=== PATIENT | female | born 1935 | race Caucasian/White ===

== ENCOUNTER 2018-03-13 11:57 | Emergency (ER) | payer MEDICARE, BC ==
[2018-03-13] MEDS ORDERED: Sodium Chloride 0.9% 10 ML Syringe FLUSH PRN ×2 (12:47→20:20)
[2018-03-13] MEDS ORDERED: Ondansetron 4 MG/2 ML SDV IVPUSH ONE (12:48)
[2018-03-13] MEDS ORDERED: fentaNYL 100 MCG/2 ML SDV IVPUSH ONE (12:48)
--- NOTE | 2018-03-13 12:54 | EDM.PDOC ---
ED HPI GENERAL MEDICAL PROBLEM - General Chief Complaint: Gastrointestinal Problem Stated Complaint: NAUSEA, VOMITINT AND DIARRHEA Time Seen by Provider: 03/13/18 12:40 Source of Information: Reports: Patient, Family, Old Records, RN Notes Reviewed History Limitations: Reports: No Limitations - History of Present Illness INITIAL COMMENTS - FREE TEXT/NARRATIVE: 82-year-old female presents to the emergency department today with complaint of nausea vomiting and diarrhea she was recently hospitalized about 2 weeks ago for similar episode today she states this particular event has been going on for about 4 days. She also has abdominal pain, no shortness of breath no chest pain" - Related Data Allergies Allergy/AdvReac Type Severity Reaction Status Date / Time adhesive tape Allergy Other Verified 03/13/18 12:19 codeine Allergy Hives Verified 03/13/18 12:19 doxepin [Doxepin] Allergy Hives Verified 03/13/18 12:19 etodolac [From Lodine] Allergy Cannot Verified 03/13/18 12:19 Remember fosinopril sodium Allergy Hives Verified 03/13/18 12:19 [From Monopril] heparin Allergy Cannot Verified 03/13/18 12:19 Remember methylprednisolone Allergy Cannot Verified 03/13/18 12:19 [From Medrol] Remember pantoprazole [From Protonix] Allergy Cannot Verified 03/13/18 12:19 Remember Penicillins Allergy Hives Verified 03/13/18 12:19 procaine HCl [From Novocain] Allergy Hives Verified 03/13/18 12:19 Sulfa (Sulfonamide Allergy Hives Verified 03/13/18 12:19 Antibiotics) amitriptyline HCl AdvReac Hallucinati Verified 03/13/18 12:19 [From Elavil] ons amlodipine besylate AdvReac Blisters Verified 03/13/18 12:19 [From Norvasc] nortriptyline AdvReac Hallucinati Verified 03/13/18 12:19 ons quinapril HCl [From Accupril] AdvReac Hallucinati Verified 03/13/18 12:19 ons Home Meds: Home Meds Simvastatin 20 mg PO BEDTIME 03/15/13 [History] Tiotropium [Spiriva Handihaler] 18 mcg INH DAILY 03/15/13 [History] traMADol [Ultram] 50 mg PO Q12H PRN 03/15/13 [History] Albuterol Sulfate [Proair Hfa] 2 puff INH Q4HR PRN 06/17/13 [History] Metoprolol Succinate 50 mg PO DAILY 06/17/13 [History] Omeprazole 20 mg PO BIDAC 06/17/13 [History] Aspirin [Adult Low Dose Aspirin EC] 81 mg PO DAILY 08/17/13 [History] Nystatin/Triamcinolone Crm [Mycolog Crm] 15 gm TOP BID 08/17/13 [History] Terazosin [Hytrin] 5 mg PO BEDTIME 11/01/14 [History] Theophylline [Theophylline Anhydrous] 300 mg PO Q12HR 11/01/14 [History] Hydroxychloroquine [Plaquenil] 200 mg PO DAILY 11/29/15 [History] Losartan [Cozaar] 50 mg PO DAILY 11/29/15 [History] Nitroglycerin 0.4 mg SL ASDIRECTED PRN 11/29/15 [History] Albuterol/Ipratropium [DuoNeb 3.0-0.5 MG/3 ML] 3 ml INH Q4H PRN 11/19/17 [ History] Levothyroxine [Synthroid] 75 mcg PO ACBREAKFAST 11/19/17 [History] Potassium Chloride 2 cap PO BID 11/19/17 [History] Warfarin [Coumadin] 1.25 tab PO DAILY@1300 11/19/17 [History] Bumetanide [Bumex] 2 mg PO DAILY 11/24/17 [History] Albuterol Sulfate [Proair Hfa] 2 puff INH QID 03/04/18 [History] Amiodarone [Cordarone] 200 mg PO DAILY 03/04/18 [History] Magnesium Oxide [Magnesium] 400 mg PO TID 03/04/18 [History] Metoprolol Succinate 25 mg PO DAILY 03/04/18 [History] Mometasone/Formoterol [Dulera 200 MCG/5 MCG] 2 puff INH BID 03/04/18 [History] Montelukast [Singulair] 10 mg PO DAILY 03/04/18 [History] Metoclopramide HCl [Reglan] 5 mg PO QIDACANDBED #0 03/08/18 [Rx] cephALEXin [Keflex] 500 mg PO BID #4 cap 03/08/18 [Rx] Benzonatate 1 caplet PO TID PRN 03/13/18 [History] Past Medical History HEENT History: Reports: Cataract, Impaired Vision Cardiovascular History: Reports: Afib, High Cholesterol, Hypertension, Pacemaker Other Cardiovascular History: defibriblilation Respiratory History: Reports: COPD, Sleep Apnea, SOB, Other (See Below) Other Respiratory History: Cpap and home O2 2L prn Gastrointestinal History: Reports: Bowel Obstruction, GERD, Hiatal Hernia Genitourinary History: Reports: Urinary Incontinence COORDINATOR OF PLACEMENT History: Reports: , Other (See Below) Other COORDINATOR OF PLACEMENT History: hemorrhaging Musculoskeletal History: Reports: RA Other Musculoskeletal History: Torn rotator cuff Neurological History: Reports: CVA, Migraines Endocrine/Metabolic History: Reports: Hypothyroidism, Obesity/BMI 30+ Hematologic History: Reports: Anemia, Blood Transfusion(s) - Infectious Disease History Infectious Disease History: Reports: Chicken Pox, Measles, Mumps, Pertussis ( Whooping Cough), Shingles - Past Surgical History HEENT Surgical History: Reports: Cataract Surgery Cardiovascular Surgical History: Reports: Coronary Artery Stent GI Surgical History: Reports: Appendectomy, Cholecystectomy, Hernia Repair/Other , Small Bowel Other GI Surgeries/Procedures: removal of mesh 2015 Female Surgical History: Reports: D&C, Hysterectomy, Salpingo-Oophorectomy Neurological Surgical History: Reports: Other (See Below) Musculoskeletal Surgical History: Reports: Knee Replacement, Other (See Below) Other Musculoskeletal Surgeries/Procedures:: L knee replaced Social & Family History - Family History HEENT: Reports: Cataract Cardiac: Reports: Hypertension Respiratory: Reports: Asthma, COPD Other Respiratory Family Hisory: emphysema GI: Reports: Cholelithiasis, Colon Polyps OBGYN: Reports: Musculoskeletal: Reports: Arthritis Psychiatric: Reports: Anxiety, Depression Endocrine/Metabolic: Reports: Hypothyroidism Oncologic: Reports: Skin - Tobacco Use Smoking Status *Q: Never Smoker - Caffeine Use Caffeine Use: Reports: Tea ED ROS GENERAL - Review of Systems Review Of Systems: See Below Constitutional: Reports: Weakness, Fatigue. Denies: Fever, Chills HEENT: Reports: No Symptoms Respiratory: Reports: No Symptoms Cardiovascular: Reports: No Symptoms GI/Abdominal: Reports: Abdominal Pain, Diarrhea, Nausea, Vomiting : Reports: No Symptoms Musculoskeletal: Reports: No Symptoms Skin: Reports: No Symptoms Neurological: Reports: No Symptoms ED EXAM, GI/ABD - Physical Exam Exam: See Below Text/Narrative:: General: Elderly female, ill-appearing, alert and oriented x3 HEENT: head is atraumatic normocephalic, eyes pupils equal round reactive to light, sclera clear no conjunctivitis appreciated. Ears tympanic membranes clear and mendenhall landmarks and light reflex are present bilaterally canals are clear. Nose no septal deviation, nares are clear, no blood present. Mouth mucosa is moist and pink no erythema or exudate noted in soft palate, tongue is midline uvula is midline, dentition is intact. Neck: Supple no thyromegaly no tracheal deviation. Nodes: Cervical nodes subclavicular nodes nontender no palpable lymphadenopathy noted. Lungs: clear to auscultation bilaterally with symmetrical respirations, no adventitious noise appreciated. CV: Regular rate and rhythm S1 and S2 appreciated no murmurs rubs or gallops noted. Abdomen: Soft, generalized tenderness to palpation, no palpable masses or organomegaly appreciated, no distention no guarding bowel sounds are present. Neuro: Cranial nerves II through XII grossly intact Skin: Warm and dry, intact Extremities: +2 pitting edema in lower extremities bilaterally Course - Vital Signs Last Recorded V/S: Last Vital Signs Temp 99.1 F 03/13/18 12:35 Pulse 102 H 03/13/18 12:35 Resp 14 03/13/18 12:35 BP 109/57 L 03/13/18 12:35 Pulse Ox 95 03/13/18 12:35 - Orders/Labs/Meds Orders: Active Orders 24 hr Category Date Time Status EKG Documentation Completion [RC] ASDIRECTED Care 03/13/18 13:58 Active Peripheral IV Care [RC] . DIRECTED Care 03/13/18 12:47 Active Abdomen Pelvis w Cont [CT] Urgent Exams 03/13/18 12:47 Taken CLOSTRIDIUM DIFFICILE BY PCR [RM] Stat Lab 03/13/18 12:51 Ordered CULTURE STOOL + SHIGATOX [RM] Stat Lab 03/13/18 12:51 Ordered UA W/MICROSCOPIC [URIN] Urgent Lab 03/13/18 12:47 Ordered WBC, STOOL [OP] Stat Lab 03/13/18 12:51 Ordered Lactated Ringers [Ringers, Lactated] 1,000 ml Med 03/13/18 13:00 Active IV ASDIRECTED Sodium Chloride 0.9% [Saline Flush] Med 03/13/18 12:47 Active 10 ml FLUSH ASDIRECTED PRN Peripheral IV Insertion Adult [OM.PC] Urgent Oth 03/13/18 12:47 Ordered EKG 12 Lead [EK] Stat Ther 03/13/18 13:57 Ordered Medication Orders Lactated Ringer's (Ringers, Lactated) 1,000 mls @ 999 mls/hr IV ASDIRECTED PAUL Last Admin: 03/13/18 13:25 Dose: 999 mls/hr Sodium Chloride (Saline Flush) 10 ml FLUSH ASDIRECTED PRN PRN Reason: Keep Vein Open Last Admin: 03/13/18 14:48 Dose: 10 ml Labs: Laboratory Tests 03/13/18 03/13/18 03/13/18 Range/Units 13:22 13:22 13:22 WBC 8.8 (4.5-11.0) K/uL RBC 4.40 (3.30-5.50) M/uL Hgb 11.8 L (12.0-15.0) g/dL Hct 36.8 (36.0-48.0) % MCV 84 (80-98) fL MCH 27 (27-31) pg MCHC 32 (32-36) % Plt Count 295 (150-400) K/uL Neut % (Auto) 67 H (36-66) % Lymph % (Auto) 13 L (24-44) % [place] % (Auto) 14 H (2-6) % Eos % (Auto) 6 H (2-4) % Baso % (Auto) 1 (0-1) % PT 16.2 H (9.5-12.0) sec INR 1.51 H (0.80-1.20) Sodium 140 (140-148) mmol/L Potassium 3.2 L (3.6-5.2) mmol/L Chloride 102 (100-108) mmol/L Carbon Dioxide 25 (21-32) mmol/L Anion Gap 16.2 H (5.0-14.0) mmol/L BUN 7 (7-18) mg/dL Creatinine 1.1 H (0.6-1.0) mg/dL Est Cr Clr Drug Dosing 28.32 mL/min Estimated GFR (MDRD) 48 L (>60) Glucose 89 (74-106) mg/dL Lactic Acid (0.4-2.0) mmol/L Calcium 9.0 (8.5-10.1) mg/dL Total Bilirubin 0.4 (0.2-1.0) mg/dL AST 11 L (15-37) U/L ALT 11 L (12-78) U/L Alkaline Phosphatase 96 (46-116) U/L Troponin I 0.018 (0.000-0.056) ng/mL Total Protein 5.7 L (6.4-8.2) g/dL Albumin 2.3 L (3.4-5.0) g/dL Globulin 3.4 (2.3-3.5) g/dL Albumin/Globulin Ratio 0.7 L (1.2-2.2) Lipase 44 L (73-393) U/L Theophylline (10-20.0) ug/mL 03/13/18 03/13/18 Range/Units 13:22 13:28 WBC (4.5-11.0) K/uL RBC (3.30-5.50) M/uL Hgb (12.0-15.0) g/dL Hct (36.0-48.0) % MCV (80-98) fL MCH (27-31) pg MCHC (32-36) % Plt Count (150-400) K/uL Neut % (Auto) (36-66) % Lymph % (Auto) (24-44) % [place] % (Auto) (2-6) % Eos % (Auto) (2-4) % Baso % (Auto) (0-1) % PT (9.5-12.0) sec INR (0.80-1.20) Sodium (140-148) mmol/L Potassium (3.6-5.2) mmol/L Chloride (100-108) mmol/L Carbon Dioxide (21-32) mmol/L Anion Gap (5.0-14.0) mmol/L BUN (7-18) mg/dL Creatinine (0.6-1.0) mg/dL Est Cr Clr Drug Dosing mL/min Estimated GFR (MDRD) (>60) Glucose (74-106) mg/dL Lactic Acid 2.9 H (0.4-2.0) mmol/L Calcium (8.5-10.1) mg/dL Total Bilirubin (0.2-1.0) mg/dL AST (15-37) U/L ALT (12-78) U/L Alkaline Phosphatase (46-116) U/L Troponin I (0.000-0.056) ng/mL Total Protein (6.4-8.2) g/dL Albumin (3.4-5.0) g/dL Globulin (2.3-3.5) g/dL Albumin/Globulin Ratio (1.2-2.2) Lipase (73-393) U/L Theophylline 28.8 H* (10-20.0) ug/mL Meds: Medications Generic Name Dose Route Start Last Admin Trade Name Freq PRN Reason Stop Dose Admin Lactated Ringer's 1,000 mls @ 999 mls/hr 03/13/18 13:00 03/13/18 13:25 Ringers, Lactated IV 999 mls/hr ASDIRECTED PAUL Administration Sodium Chloride 10 ml 03/13/18 12:47 03/13/18 14:48 Saline Flush FLUSH 10 ml ASDIRECTED PRN Administration Keep Vein Open Discontinued Medications Generic Name Dose Route Start Last Admin Trade Name Freq PRN Reason Stop Dose Admin Benzonatate 200 mg 03/13/18 14:49 03/13/18 14:59 Tessalon Perles PO 03/13/18 14:50 200 mg ONETIME ONE Administration Fentanyl 50 mcg 03/13/18 12:48 03/13/18 13:25 Sublimaze IVPUSH 03/13/18 12:49 50 mcg ONETIME ONE Administration Sodium Chloride 80 mls @ 3.5 mls/sec 03/13/18 12:55 03/13/18 14:48 Normal Saline IV 03/13/18 12:56 3.5 mls/sec ONETIME ONE Administration Iopamidol 129 ml 03/13/18 13:00 03/13/18 14:48 Isovue-300 (61%) IV 03/13/18 13:01 129 ml . DIRECTED PAUL Administration Ondansetron HCl 4 mg 03/13/18 12:48 03/13/18 13:25 Zofran IVPUSH 03/13/18 12:49 4 mg ONETIME ONE Administration Sodium Chloride 10 ml 03/13/18 12:55 03/13/18 13:24 Saline Flush FLUSH 03/13/18 12:56 10 ml ONETIME ONE Administration Departure - Departure Time of Disposition: 15:40 Disposition: Refer to Observation Condition: Fair Clinical Impression: Theophylline toxicity - Discharge Information Referrals: Sundeep Gleason MD [Primary Care Provider] - Forms: ED Department Discharge - My Orders Last 24 Hours: My Active Orders 03/13/18 12:47 Peripheral IV Care [RC] . DIRECTED Abdomen Pelvis w Cont [CT] Urgent UA W/MICROSCOPIC [URIN] Urgent Sodium Chloride 0.9% [Saline Flush] 10 ml FLUSH ASDIRECTED PRN Peripheral IV Insertion Adult [OM.PC] Urgent 03/13/18 12:51 CLOSTRIDIUM DIFFICILE BY PCR [RM] Stat CULTURE STOOL + SHIGATOX [RM] Stat WBC, STOOL [OP] Stat 03/13/18 13:00 Lactated Ringers [Ringers, Lactated] 1,000 ml IV ASDIRECTED 03/13/18 13:57 EKG 12 Lead [EK] Stat 03/13/18 13:58 EKG Documentation Completion [RC] ASDIRECTED - Assessment/Plan Last 24 Hours: My Active Orders 03/13/18 12:47 Peripheral IV Care [RC] . DIRECTED Abdomen Pelvis w Cont [CT] Urgent UA W/MICROSCOPIC [URIN] Urgent Sodium Chloride 0.9% [Saline Flush] 10 ml FLUSH ASDIRECTED PRN Peripheral IV Insertion Adult [OM.PC] Urgent 03/13/18 12:51 CLOSTRIDIUM DIFFICILE BY PCR [RM] Stat CULTURE STOOL + SHIGATOX [RM] Stat WBC, STOOL [OP] Stat 03/13/18 13:00 Lactated Ringers [Ringers, Lactated] 1,000 ml IV ASDIRECTED 03/13/18 13:57 EKG 12 Lead [EK] Stat 03/13/18 13:58 EKG Documentation Completion [RC] ASDIRECTED Plan: Assessment Acuity = acute Site and laterality = theophylline toxicity complicated in a patient with known history of atrial fibrillation on chronic anticoagulation as well as chronic obstructive pulmonary disease as well as on amiodarone Etiology = unclear etiology Manifestations = nausea vomiting abdominal pain Location of injury = Home Lab values = CBC unremarkable INR subtherapeutic at 1.51 potassium low at 3.2 consistent hypokalemia, albumin low at 2.3 consistent hypoalbuminemia theophylline elevated 28.8 consistent with supratherapeutic range, CT scan of the abdomen shows no acute process Plan Called discussed case with hospitalist mason helper he agreed, and evaluate the patient emergency department for admission This note was dictated using [employer] voice recognition software please call with any questions on syntax or grammar.
[2018-03-13] MEDS ORDERED: Sodium Chloride 0.9% 10 ML Syringe FLUSH ONE (12:55)
[2018-03-13] MEDS ORDERED: Sodium Chloride 0.9% 80 ML IV ONE (12:55)
[2018-03-13] MEDS ORDERED: Lactated Ringers 1,000 ML IV SCH (13:00)
[2018-03-13] MEDS ORDERED: Iopamidol 612 MG/ML 150 ML Bottle IV SCH (13:00)
[2018-03-13] MEDS ORDERED: Benzonatate 100 MG Cap PO ONE (14:49)
--- NOTE | 2018-03-13 17:43 | PCM.HP ---
H&P History of Present Illness - General Date of Service: 03/13/18 Admit Problem/Dx: Admission Diagnosis/Problem Admission Diagnosis/Problem Nausea and vomiting Source of Information: Patient, Old Records, Provider, RN Notes Reviewed History Limitations: Reports: No Limitations - History of Present Illness Initial Comments - Free Text/Narative: Ms. Molina is an 82-year-old woman who is admitted to observation status through the emergency department for management of nausea, vomiting and tremor secondary to Aminophyllin toxicity. She was hostile is at this facility within the past few weeks with epigastric abdominal pain, nausea, and vomiting. CT scan of the abdomen was obtained and found to be unremarkable. EGD was obtained and showed evidence of gastritis, biopsies were obtained and found to be positive for Helicobacter pylori. She is completed a course of management for the Helicobacter. She felt well initially after discharge now has noted recurrent symptoms in addition to tremulousness which has become significantly worse. On evaluation in the emergency department white blood cell count is normal as well as other labs. Significant abnormality identified was elevation in her Aminophyllin level. - Related Data Allergies/Adverse Reactions: Allergies Allergy/AdvReac Type Severity Reaction Status Date / Time adhesive tape Allergy Other Verified 03/13/18 12:19 codeine Allergy Hives Verified 03/13/18 12:19 doxepin [Doxepin] Allergy Hives Verified 03/13/18 12:19 etodolac [From Lodine] Allergy Cannot Verified 03/13/18 12:19 Remember fosinopril sodium Allergy Hives Verified 03/13/18 12:19 [From Monopril] heparin Allergy Cannot Verified 03/13/18 12:19 Remember methylprednisolone Allergy Cannot Verified 03/13/18 12:19 [From Medrol] Remember pantoprazole [From Protonix] Allergy Cannot Verified 03/13/18 12:19 Remember Penicillins Allergy Hives Verified 03/13/18 12:19 procaine HCl [From Novocain] Allergy Hives Verified 03/13/18 12:19 Sulfa (Sulfonamide Allergy Hives Verified 03/13/18 12:19 Antibiotics) amitriptyline HCl AdvReac Hallucinati Verified 03/13/18 12:19 [From Elavil] ons amlodipine besylate AdvReac Blisters Verified 03/13/18 12:19 [From Norvasc] nortriptyline AdvReac Hallucinati Verified 03/13/18 12:19 ons quinapril HCl [From Accupril] AdvReac Hallucinati Verified 03/13/18 12:19 ons Home Medications: Home Meds Simvastatin 20 mg PO BEDTIME 03/15/13 [History] Tiotropium [Spiriva Handihaler] 18 mcg INH DAILY 03/15/13 [History] traMADol [Ultram] 50 mg PO Q12H PRN 03/15/13 [History] Albuterol Sulfate [Proair Hfa] 2 puff INH Q4HR PRN 06/17/13 [History] Metoprolol Succinate 50 mg PO DAILY 06/17/13 [History] Omeprazole 20 mg PO BIDAC 06/17/13 [History] Aspirin [Adult Low Dose Aspirin EC] 81 mg PO DAILY 08/17/13 [History] Nystatin/Triamcinolone Crm [Mycolog Crm] 15 gm TOP BID 08/17/13 [History] Terazosin [Hytrin] 5 mg PO BEDTIME 11/01/14 [History] Theophylline [Theophylline Anhydrous] 300 mg PO Q12HR 11/01/14 [History] Hydroxychloroquine [Plaquenil] 200 mg PO DAILY 11/29/15 [History] Losartan [Cozaar] 50 mg PO DAILY 11/29/15 [History] Nitroglycerin 0.4 mg SL ASDIRECTED PRN 11/29/15 [History] Albuterol/Ipratropium [DuoNeb 3.0-0.5 MG/3 ML] 3 ml INH Q4H PRN 11/19/17 [ History] Levothyroxine [Synthroid] 75 mcg PO ACBREAKFAST 11/19/17 [History] Potassium Chloride 2 cap PO BID 11/19/17 [History] Warfarin [Coumadin] 1.25 tab PO DAILY@1300 11/19/17 [History] Bumetanide [Bumex] 2 mg PO DAILY 11/24/17 [History] Albuterol Sulfate [Proair Hfa] 2 puff INH QID 03/04/18 [History] Amiodarone [Cordarone] 200 mg PO DAILY 03/04/18 [History] Magnesium Oxide [Magnesium] 400 mg PO TID 03/04/18 [History] Metoprolol Succinate 25 mg PO DAILY 03/04/18 [History] Mometasone/Formoterol [Dulera 200 MCG/5 MCG] 2 puff INH BID 03/04/18 [History] Montelukast [Singulair] 10 mg PO DAILY 03/04/18 [History] Metoclopramide HCl [Reglan] 5 mg PO QIDACANDBED #0 03/08/18 [Rx] cephALEXin [Keflex] 500 mg PO BID #4 cap 03/08/18 [Rx] Benzonatate 1 caplet PO TID PRN 03/13/18 [History] Past Medical History HEENT History: Reports: Cataract, Impaired Vision Cardiovascular History: Reports: Afib, High Cholesterol, Hypertension, Pacemaker Other Cardiovascular History: defibriblilation Respiratory History: Reports: COPD, Sleep Apnea, SOB, Other (See Below) Other Respiratory History: Cpap and home O2 2L prn Gastrointestinal History: Reports: Bowel Obstruction, GERD, Hiatal Hernia Genitourinary History: Reports: Urinary Incontinence 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: , Other (See Below) Other OB/BYN History: hemorrhaging Musculoskeletal History: Reports: RA Other Musculoskeletal History: Torn rotator cuff Neurological History: Reports: CVA, Migraines Endocrine/Metabolic History: Reports: Hypothyroidism, Obesity/BMI 30+ Hematologic History: Reports: Anemia, Blood Transfusion(s) - Infectious Disease History Infectious Disease History: Reports: Chicken Pox, Measles, Mumps, Pertussis ( Whooping Cough), Shingles - Past Surgical History HEENT Surgical History: Reports: Cataract Surgery Cardiovascular Surgical History: Reports: Coronary Artery Stent GI Surgical History: Reports: Appendectomy, Cholecystectomy, Hernia Repair/Other , Small Bowel Other GI Surgeries/Procedures: removal of mesh 2016 Female Surgical History: Reports: D&C, Hysterectomy, Salpingo-Oophorectomy Neurological Surgical History: Reports: Other (See Below) Musculoskeletal Surgical History: Reports: Knee Replacement, Other (See Below) Other Musculoskeletal Surgeries/Procedures:: L knee replaced Social & Family History - Family History HEENT: Reports: Cataract Cardiac: Reports: Hypertension Respiratory: Reports: Asthma, COPD Other Respiratory Family Hisory: emphysema GI: Reports: Cholelithiasis, Colon Polyps OBGYN: Reports: Musculoskeletal: Reports: Arthritis Psychiatric: Reports: Anxiety, Depression Endocrine/Metabolic: Reports: Hypothyroidism Oncologic: Reports: Skin - Tobacco Use Smoking Status *Q: Never Smoker - Caffeine Use Caffeine Use: Reports: Tea H&P Review of Systems - Review of Systems: Review Of Systems: See Below General: Reports: Weakness. Denies: Fever, Chills HEENT: Reports: No Symptoms Pulmonary: Reports: No Symptoms Cardiovascular: Reports: No Symptoms Gastrointestinal: Reports: Abdominal Pain, Diarrhea, Decreased Appetite, Nausea , Vomiting. Denies: Black Stool, Bloody Stool, Constipation, Difficulty Swallowing, Distension Genitourinary: Reports: No Symptoms Musculoskeletal: Reports: No Symptoms Skin: Reports: No Symptoms Psychiatric: Reports: No Symptoms Neurological: Reports: Tremors Hematologic/Lymphatic: Reports: No Symptoms Immunologic: Reports: No Symptoms Exam - Exam Exam: See Below - Vital Signs Vital Signs: Last Vital Signs Temp 99.1 F 03/13/18 12:35 Pulse 102 H 03/13/18 12:35 Resp 14 03/13/18 12:35 BP 109/57 L 03/13/18 12:35 Pulse Ox 95 03/13/18 12:35 Weight: 190 lb - Exam Quality Assessment: DVT Prophylaxis General: Alert, Oriented, Cooperative, Moderate Distress HEENT: Conjunctiva Clear, Hearing Intact, Normal Nasal Septum, Posterior Pharynx Clear, Pupils Equal. No: Mucosa Moist & Hospers Neck: Supple, Trachea Midline, +2 Carotid Pulse wo Bruit Lungs: Clear to Auscultation, Normal Respiratory Effort Cardiovascular: Regular Rate, Regular Rhythm, Normal S1, Normal S2 GI/Abdominal Exam: Normal Bowel Sounds, Soft, No Organomegaly, Tender. No: Distended, Guarding, Rigid, Rebound Back Exam: Normal Inspection, Full Range of Motion Extremities: Non-Tender, No Pedal Edema Skin: Warm, Dry, Intact Neurological: Cranial Nerves Intact, Strength Equal Bilateral, Normal Speech, Normal Tone, Sensation Intact. No: Focal Deficit Neuro Extensive - Mental Status: Alert, Oriented x3, Normal Mood/Affect, Normal Cognition, Memory Intact - Patient Data Lab Results Last 24 hrs: Laboratory Results - last 24 hr 03/13/18 03/13/18 03/13/18 Range/Units 13:22 13:22 13:22 WBC 8.8 (4.5-11.0) K/uL RBC 4.40 (3.30-5.50) M/uL Hgb 11.8 L (12.0-15.0) g/dL Hct 36.8 (36.0-48.0) % MCV 84 (80-98) fL MCH 27 (27-31) pg MCHC 32 (32-36) % Plt Count 295 (150-400) K/uL Neut % (Auto) 67 H (36-66) % Lymph % (Auto) 13 L (24-44) % Brewster % (Auto) 14 H (2-6) % Eos % (Auto) 6 H (2-4) % Baso % (Auto) 1 (0-1) % PT 16.2 H (9.5-12.0) sec INR 1.51 H (0.80-1.20) Sodium 140 (140-148) mmol/L Potassium 3.2 L (3.6-5.2) mmol/L Chloride 102 (100-108) mmol/L Carbon Dioxide 25 (21-32) mmol/L Anion Gap 16.2 H (5.0-14.0) mmol/L BUN 7 (7-18) mg/dL Creatinine 1.1 H (0.6-1.0) mg/dL Est Cr Clr Drug Dosing 28.32 mL/min Estimated GFR (MDRD) 48 L (>60) Glucose 89 (74-106) mg/dL Lactic Acid (0.4-2.0) mmol/L Calcium 9.0 (8.5-10.1) mg/dL Total Bilirubin 0.4 (0.2-1.0) mg/dL AST 11 L (15-37) U/L ALT 11 L (12-78) U/L Alkaline Phosphatase 96 (46-116) U/L Troponin I 0.018 (0.000-0.056) ng/mL Total Protein 5.7 L (6.4-8.2) g/dL Albumin 2.3 L (3.4-5.0) g/dL Globulin 3.4 (2.3-3.5) g/dL Albumin/Globulin Ratio 0.7 L (1.2-2.2) Lipase 44 L (73-393) U/L Theophylline (10-20.0) ug/mL 03/13/18 12 Range/Units 13:22 13:28 WBC (4.5-11.0) K/uL RBC (3.30-5.50) M/uL Hgb (12.0-15.0) g/dL Hct (36.0-48.0) % MCV (80-98) fL MCH (27-31) pg MCHC (32-36) % Plt Count (150-400) K/uL Neut % (Auto) (36-66) % Lymph % (Auto) (24-44) % Brewster % (Auto) (2-6) % Eos % (Auto) (2-4) % Baso % (Auto) (0-1) % PT (9.5-12.0) sec INR (0.80-1.20) Sodium (140-148) mmol/L Potassium (3.6-5.2) mmol/L Chloride (100-108) mmol/L Carbon Dioxide (21-32) mmol/L Anion Gap (5.0-14.0) mmol/L BUN (7-18) mg/dL Creatinine (0.6-1.0) mg/dL Est Cr Clr Drug Dosing mL/min Estimated GFR (MDRD) (>60) Glucose (74-106) mg/dL Lactic Acid 2.9 H (0.4-2.0) mmol/L Calcium (8.5-10.1) mg/dL Total Bilirubin (0.2-1.0) mg/dL AST (15-37) U/L ALT (12-78) U/L Alkaline Phosphatase (46-116) U/L Troponin I (0.000-0.056) ng/mL Total Protein (6.4-8.2) g/dL Albumin (3.4-5.0) g/dL Globulin (2.3-3.5) g/dL Albumin/Globulin Ratio (1.2-2.2) Lipase (73-393) U/L Theophylline 28.8 H* (10-20.0) ug/mL Result Diagrams: 03/13/18 13:22 03/13/18 13:22 *Q Meaningful Use (ADM) - VTE *Q VTE Pharmacological Contraindications *Q: High INR Value - VTE Risk Assess *Q Each Risk Factor Represents 1 Point: Obesity ( BMI > 25 kg/m2), Abnormal Pulmonary Function (COPD) Total Score 1 Point Risk Factors: 2 Each Risk Factor Represents 2 Points: None Total Score 2 Point Risk Factors: 0 Each Risk Factor Represents 3 Points: Age 75 Years or Greater Total Score 3 Point Risk Factors: 3 Each Risk Factor Represents 5 Points: None Total Score 5 Point Risk Factors: 0 Venous Thromboembolism Risk Factor Score *Q: 5 Problem List Initiated/Reviewed/Updated: Yes Orders Last 24hrs: Active Orders 24 hr Category Date Time Status Patient Status Manage Transfer [TRANSFER] Routine ADT 03/13/18 17:22 Ordered EKG Documentation Completion [RC] ASDIRECTED Care 03/13/18 13:58 Active Peripheral IV Care [RC] . DIRECTED Care 03/13/18 12:47 Active Abdomen Pelvis w Cont [CT] Urgent Exams 03/13/18 12:47 Taken CLOSTRIDIUM DIFFICILE BY PCR [RM] Stat Lab 03/13/18 12:51 Ordered CULTURE STOOL + SHIGATOX [RM] Stat Lab 03/13/18 12:51 Ordered UA W/MICROSCOPIC [URIN] Urgent Lab 03/13/18 12:47 Ordered WBC, STOOL [OP] Stat Lab 03/13/18 12:51 Ordered Lactated Ringers [Ringers, Lactated] 1,000 ml Med 03/13/18 13:00 Active IV ASDIRECTED Sodium Chloride 0.9% [Saline Flush] Med 03/13/18 12:47 Active 10 ml FLUSH ASDIRECTED PRN Peripheral IV Insertion Adult [OM.PC] Urgent Oth 03/13/18 12:47 Ordered Resuscitation Status Routine Resus Stat 03/13/18 17:30 Ordered EKG 12 Lead [EK] Stat Ther 03/13/18 13:57 Ordered Medication Orders Lactated Ringer's (Ringers, Lactated) 1,000 mls @ 999 mls/hr IV ASDIRECTED PAUL Last Admin: 03/13/18 13:25 Dose: 999 mls/hr Sodium Chloride (Saline Flush) 10 ml FLUSH ASDIRECTED PRN PRN Reason: Keep Vein Open Last Admin: 03/13/18 14:48 Dose: 10 ml Assessment/Plan Comment:: ASSESSMENT AND PLAN 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 May have been caused by concurrent use of amiodarone. Level obtained in the emergency department and found to be significantly elevated at 28. -Cardiac monitoring -Hold Aminophyllin -Recheck Aminophyllin level in a.m. HISTORY OF GASTRITIS-found during recent hospitalization and associated with Helicobacter pylori. She is now completed a course of therapy for the H. pylori. She does have persistent symptoms of epigastric pain. She is intolerant of Protonix. -Increase omeprazole to 40 mg twice daily -Pepcid 20 mg IV every 12 hours -If symptoms of nausea vomiting do not improve after Aminophyllin level drops, consider repeat endoscopy ATRIAL FIBRILLATION-rate well controlled, currently on anticoagulation with warfarin -INR in a.m. -Continue outpatient management COPD-well compensated at this time with no evidence of exacerbation -Hold Aminophyllin -Continue other medications MAINTENANCE ISSUES -DVT prophylaxis; current therapy with warfarin should provide adequate DVT prophylaxis -GI prophylaxis; omeprazole and Pepcid as noted above -[place] catheter; not indicated -Nutrition; regular diet -Nicotine dependence; not required CODE STATUS-FULL CODE ADMISSION STATUS-this patient will be admitted to observation status, expect no more than a one night hospital stay for evaluation and management of problems as outlined above. DISPOSITION-anticipate discharge to home after the hospital stay. PRIMARY CARE PROVIDER-Dr. Gleason
[2018-03-13] MEDS ORDERED: Albuterol 0.083% 2.5 MG/3 ML Neb Soln NEB PRN (20:20)
[2018-03-13] MEDS ORDERED: Acetaminophen 325 MG Tab PO PRN (20:20)
[2018-03-13] MEDS ORDERED: Potassium Chloride Riders 40 MEQ in Premix Bag 1 BAG IV ONE (20:20)
[2018-03-13] MEDS ORDERED: Albuterol/Ipratropium 3.0-0.5 MG/3 ML Neb Soln NEB PRN (20:20)
[2018-03-13] MEDS ORDERED: LORazepam 2 MG/ML SDV IV PRN (20:20)
[2018-03-13] MEDS ORDERED: Albuterol 8 GM Inhaler INH PRN (20:20)
[2018-03-13] MEDS ORDERED: Potassium Chloride 20 MEQ Tab.ER PO ONE (20:20)
[2018-03-13] MEDS: Potassium Chloride 20 MEQ Tab.ER PO SCH (21:34)
[2018-03-13] MEDS: Lactated Ringers 1,000 ML IV SCH (21:35)
[2018-03-13] MEDS: traMADol 50 MG Tab PO PRN (21:36)
[2018-03-13] MEDS: Benzonatate 100 MG Cap PO PRN (21:37)
[2018-03-13] MEDS: Simvastatin 20 MG Tab PO SCH (21:42)
[2018-03-13] MEDS: Metoclopramide 10 MG Tab PO SCH (21:42)
[2018-03-13] MEDS: Formoterol/Mometasone 200-5 MCG 8.8 GM Inhaler IH SCH (21:45)
[2018-03-13] MEDS: Famotidine 20 MG/2 ML SDV IVPUSH SCH (21:49)
[2018-03-13] MEDS: Terazosin 5 MG Cap PO SCH (21:51)
[2018-03-13] MEDS ORDERED: Vancomycin 1 GM SDV ONE (22:32)
[2018-03-13] MEDS ORDERED: Water For Injection, Sterile 10 ML SDV ONE (22:35)
[2018-03-13] MEDS: Vancomycin 250 MG/5 ML ML Oral Solution PO SCH (23:11)
[2018-03-14] MEDS: traMADol 50 MG Tab PO PRN ×2 (04:14→08:24)
[2018-03-14] MEDS: Benzonatate 100 MG Cap PO PRN ×2 (04:14→17:31)
[2018-03-14] MEDS: Lactated Ringers 1,000 ML IV SCH (05:26)
[2018-03-14] MEDS: Vancomycin 250 MG/5 ML ML Oral Solution PO SCH ×4 (06:06→21:37)
[2018-03-14] MEDS ORDERED: Non-Formulary Medication 1 Each (Omeprazole [Omeprazole] 40 MG) PO SCH (07:30)
[2018-03-14] MEDS: Levothyroxine 25 MCG Tab PO SCH (08:00)
[2018-03-14] MEDS: Metoclopramide 10 MG Tab PO SCH ×4 (08:00→20:17)
[2018-03-14] MEDS: Losartan 50 MG Tab PO SCH (08:01)
[2018-03-14] MEDS: Bumetanide 1 MG Tab PO SCH (08:01)
[2018-03-14] MEDS: Aspirin 81 MG Tab.EC PO SCH (08:02)
[2018-03-14] MEDS: Potassium Chloride 20 MEQ Tab.ER PO SCH ×2 (08:02→20:15)
[2018-03-14] MEDS: Hydroxychloroquine 200 MG Tab PO SCH (08:02)
[2018-03-14] MEDS: Montelukast 10 MG Tab PO SCH (08:02)
[2018-03-14] MEDS: Metoprolol Succinate 50 MG Tab.ER PO SCH (08:09)
[2018-03-14] MEDS: Amiodarone 200 MG Tab PO SCH (08:10)
[2018-03-14] MEDS: Formoterol/Mometasone 200-5 MCG 8.8 GM Inhaler IH SCH ×2 (09:12→21:37)
[2018-03-14] MEDS: Tiotropium Inhaler 18 MCG Inhalation Powder Cap Kit of 5 INH SCH (09:13)
[2018-03-14] MEDS ORDERED: Warfarin 2.5 MG Tab PO SCH (13:00)
--- NOTE | 2018-03-14 14:41 | PCM.PN ---
- General Info Date of Service: 03/14/18 Subjective Update: Ms. Molina is improved since admission, tremors have essentially resolved and nausea vomiting are significantly improved. Vital signs have been stable and she has remained afebrile. Stool for C. difficile did come back positive and she 's been started on oral vancomycin. Continues to experience diarrhea but already seems to be improving. Functional Status: Reports: Urinating - Review of Systems General: Reports: Weakness. Denies: Fever, Chills Pulmonary: Reports: No Symptoms Cardiovascular: Reports: No Symptoms Gastrointestinal: Reports: Abdominal Pain, Decreased Appetite, Diarrhea. Denies : Difficulty Swallowing, Nausea, Vomiting - Patient Data Vitals - Most Recent: Last Vital Signs Temp 98.5 F 03/14/18 13:26 Pulse 98 03/14/18 13:26 Resp 16 03/14/18 13:26 BP 112/61 03/14/18 13:26 Pulse Ox 95 03/14/18 13:26 Weight - Most Recent: 205 lb I&O - Last 24 Hours: Intake & Output 03/13/18 03/14/18 03/14/18 22:59 06:59 14:59 Intake Total 100 1347 Output Total 300 350 300 Balance -200 997 -300 Lab Results Last 24 Hours: Laboratory Results - last 24 hr 03/13/18 03/14/18 03/14/18 Range/Units 20:50 06:08 06:08 PT 18.3 H (9.5-12.0) sec INR 1.72 H (0.80-1.20) Sodium 138 L (140-148) mmol/L Potassium 4.5 (3.6-5.2) mmol/L Chloride 105 (100-108) mmol/L Carbon Dioxide 26 (21-32) mmol/L Anion Gap 11.5 (5.0-14.0) mmol/L BUN 6 L (7-18) mg/dL Creatinine 0.9 (0.6-1.0) mg/dL Est Cr Clr Drug Dosing 34.62 mL/min Estimated GFR (MDRD) 60 (>60) Glucose 77 (74-106) mg/dL Calcium 8.5 (8.5-10.1) mg/dL Urine Color [place] Urine Appearance Cloudy Urine pH 6.0 (4.5-8.0) Ur Specific [place] 1.005 L (1.008-1.030) Urine Protein Trace (NEGATIVE) mg/dL Urine Glucose (UA) Normal (NEGATIVE) mg/dL Urine Ketones Negative (NEGATIVE) mg/dL Urine Occult Blood Large (NEGATIVE) Urine Nitrite Negative (NEGATIVE) Urine Bilirubin Negative (NEGATIVE) Urine Urobilinogen Normal (NORMAL) mg/dL Ur Leukocyte Esterase Moderate (NEGATIVE) Urine RBC Packed H (0-5) Urine WBC 5-10 H (0-5) Ur Epithelial Cells Moderate Amorphous Sediment Few Urine Bacteria Rare Urine Mucus Few Theophylline 17.2 (10-20.0) ug/mL Darshan Results Last 24 Hours: Microbiology 03/13/18 20:50 Shiga Toxin I - Final Stool / Feces NEGATIVE FOR SHIGA TOXIN 1 Shiga Toxin II - Final NEGATIVE FOR SHIGA TOXIN 2 Clostridium difficile (PCR) - Final Positive C. Diff Toxin 03/13/18 20:50 Stool for WBCs - Final Stool / Feces Med Orders - Current: Current Medications Albuterol (Ventolin Hfa) 0 gm INH Q4H PRN PRN Reason: Shortness of Breath Albuterol (Proventil Neb Soln) 2.5 mg NEB Q4H PRN PRN Reason: Shortness Of Breath/wheezing Albuterol/Ipratropium (Duoneb 3.0-0.5 Mg/3 Ml) 3 ml NEB QID PRN PRN Reason: Shortness Of Breath/wheezing Last Admin: 03/14/18 09:13 Dose: 3 ml Amiodarone HCl (Cordarone) 200 mg PO DAILY [facility] Last Admin: 03/14/18 08:10 Dose: 200 mg Aspirin (Halfprin) 81 mg PO DAILY [facility] Last Admin: 03/14/18 08:02 Dose: 81 mg Benzonatate (Tessalon Perles) 100 mg PO Q6H PRN PRN Reason: Cough Last Admin: 03/14/18 04:14 Dose: 100 mg Bumetanide (Bumex) 1 mg PO DAILY [facility] Last Admin: 03/14/18 08:01 Dose: 1 mg Famotidine (Pepcid) 20 mg IVPUSH BEDTIME [facility] Last Admin: 03/13/18 21:49 Dose: 20 mg Hydroxychloroquine Sulfate (Plaquenil) 200 mg PO DAILY [facility] Last Admin: 03/14/18 08:02 Dose: 200 mg Lactobacillus Rhamnosus (Culturelle) 1 cap PO BID [facility] Levothyroxine Sodium (Levothyroxine) 75 mcg PO ACBREAKFAST [facility] Last Admin: 03/14/18 08:00 Dose: 75 mcg Lorazepam (Ativan) 0.5 mg IV Q4H PRN PRN Reason: Nausea/Vomiting Losartan Potassium (Cozaar) 50 mg PO DAILY [facility] Last Admin: 03/14/18 08:01 Dose: 50 mg Metoclopramide HCl (Reglan) 5 mg PO QIDACANDBED [facility] Last Admin: 03/14/18 11:16 Dose: 5 mg Metoprolol Succinate (Toprol Xl) 50 mg PO DAILY [facility] Last Admin: 03/14/18 08:09 Dose: 50 mg Mometasone Furoate/Formoterol Fumar (Dulera 200-5 Mcg) 2 puff IH BID [facility] Last Admin: 03/14/18 09:12 Dose: 2 puff Montelukast Sodium (Singulair) 10 mg PO DAILY [facility] Last Admin: 03/14/18 08:02 Dose: 10 mg Non-Formulary Medication (Omeprazole [Omeprazole]) 40 mg PO BIDAC [facility] Potassium Chloride (Klor-Con M20) 20 meq PO BID [facility] Last Admin: 03/14/18 08:02 Dose: 20 meq Simvastatin (Zocor) 20 mg PO BEDTIME [facility] Last Admin: 03/13/18 21:42 Dose: 20 mg Sodium Chloride (Saline Flush) 10 ml FLUSH ASDIRECTED PRN PRN Reason: Keep Vein Open Terazosin HCl (Hytrin) 5 mg PO BEDTIME [facility] Last Admin: 03/13/18 21:51 Dose: Not Given Tiotropium [place] (Spiriva Handihaler) 18 mcg INH DAILY [facility] Last Admin: 03/14/18 09:13 Dose: 18 mcg Tramadol HCl (Ultram) 50 mg PO Q4H PRN PRN Reason: Pain (severe 7-10) Last Admin: 03/14/18 08:24 Dose: 50 mg Vancomycin HCl (Vancocin 250 Mg/5 Ml Soln) 125 mg PO QID [facility] Last Admin: 03/14/18 11:16 Dose: 125 mg Warfarin Sodium (Coumadin) 1.25 mg PO DAILY@1300 [facility] Last Admin: 03/14/18 13:13 Dose: 1.25 mg Discontinued Medications Acetaminophen (Tylenol) 650 mg PO Q4H PRN PRN Reason: Pain (Mild 1-3)/fever Benzonatate (Tessalon Perles) 200 mg PO ONETIME ONE Stop: 03/13/18 14:50 Last Admin: 03/13/18 14:59 Dose: 200 mg Fentanyl (Sublimaze) 50 mcg IVPUSH ONETIME ONE Stop: 03/13/18 12:49 Last Admin: 03/13/18 13:25 Dose: 50 mcg Lactated Ringer's (Ringers, Lactated) 1,000 mls @ 999 mls/hr IV ASDIRECTED [facility] Last Admin: 03/13/18 13:25 Dose: 999 mls/hr Sodium Chloride (Normal Saline) 80 mls @ 3.5 mls/sec IV ONETIME ONE Stop: 03/13/18 12:56 Last Admin: 03/13/18 14:48 Dose: 3.5 mls/sec Lactated Ringer's (Ringers, Lactated) 1,000 mls @ 125 mls/hr IV ASDIRECTED [facility] Last Admin: 03/14/18 05:26 Dose: 125 mls/hr Potassium Chloride 40 meq/ (Premix) 100 mls @ 25 mls/hr IV ONETIME ONE Stop: 03/14/18 00:19 Last Admin: 03/13/18 23:11 Dose: 25 mls/hr Iopamidol (Isovue-300 (61%)) 129 ml IV . DIRECTED [facility] Stop: 03/13/18 13:01 Last Admin: 03/13/18 14:48 Dose: 129 ml Ondansetron HCl (Zofran) 4 mg IVPUSH ONETIME ONE Stop: 03/13/18 12:49 Last Admin: 03/13/18 13:25 Dose: 4 mg Potassium Chloride (Klor-Con M20) 40 meq PO ONETIME ONE Stop: 03/13/18 20:21 Last Admin: 03/13/18 21:35 Dose: 40 meq Sodium Chloride (Saline Flush) 10 ml FLUSH ASDIRECTED PRN PRN Reason: Keep Vein Open Last Admin: 03/13/18 14:48 Dose: 10 ml Sodium Chloride (Saline Flush) 10 ml FLUSH ONETIME ONE Stop: 03/13/18 12:56 Last Admin: 03/13/18 13:24 Dose: 10 ml Sterile Water (Sterile Water For Injection) Confirm Administered Dose 20 ml .ROUTE .STK-MED ONE Stop: 03/13/18 22:36 Last Admin: 03/13/18 23:12 Dose: Not Given Vancomycin HCl (Vancomycin) Confirm Administered Dose 1 gm .ROUTE .STK-MED ONE Stop: 03/13/18 22:33 Last Admin: 03/13/18 23:12 Dose: Not Given - Exam Quality Assessment: DVT Prophylaxis General: Alert, Oriented, Cooperative, Mild Distress Lungs: Clear to Auscultation, Normal Respiratory Effort Cardiovascular: Regular Rate, Regular Rhythm, No Murmurs GI/Abdominal Exam: Soft, No Organomegaly, Tender. No: Distended, Guarding, Rigid, Rebound Extremities: Non-Tender, No Pedal Edema - Problem List Review Problem List Initiated/Reviewed/Updated: Yes - My Orders Last 24 Hours: My Active Orders 03/13/18 17:30 Resuscitation Status Routine 03/13/18 20:20 Patient Status [ADT] Routine Ambulate [RC] QID Intake and Output [RC] QSHIFT Notify Provider Vital Signs [RC] ASDIRECTED Oxygen Therapy [RC] .PRN Peripheral IV Care [RC] Q12H RT Aerosol Therapy [RC] ASDIRECTED Up With Assistance [RC] ASDIRECTED Up to Chair [RC] QID VTE/DVT Education [RC] Per Unit Routine Vital Signs [RC] Q4H Albuterol [Proventil Neb Soln] 2.5 mg NEB Q4H PRN Albuterol [Ventolin HFA] 0 gm INH Q4H PRN Albuterol/Ipratropium [DuoNeb 3.0-0.5 MG/3 ML] 3 ml NEB QID PRN LORazepam [Ativan] 0.5 mg IV Q4H PRN Sodium Chloride 0.9% [Saline Flush] 10 ml FLUSH ASDIRECTED PRN traMADol [Ultram] 50 mg PO Q4H PRN Peripheral IV Insertion Adult [OM.PC] Routine VTE Pharmacological Contraindications [AST] Per Unit Routine 03/13/18 20:35 Benzonatate [Tessalon Perles] 100 mg PO Q6H PRN 03/13/18 20:45 Metoclopramide [Reglan] 5 mg PO QIDACANDBED 03/13/18 21:00 Famotidine [Pepcid] 20 mg IVPUSH BEDTIME Mometasone/Formoterol [Dulera 200-5 MCG] 2 puff IH BID Potassium Chloride [Klor-Con M20] 20 meq PO BID Simvastatin [Zocor] 20 mg PO BEDTIME Terazosin [Hytrin] 5 mg PO BEDTIME 03/13/18 22:30 Vancomycin [Vancocin 250 MG/5 ML Soln] 125 mg PO QID 03/13/18 Dinner 2 Gram Sodium Diet [DIET] 03/14/18 07:30 Levothyroxine 75 mcg PO ACBREAKFAST Omeprazole [Omeprazole] 40 mg PO BIDAC 03/14/18 09:00 Amiodarone [Cordarone] 200 mg PO DAILY Aspirin [Halfprin] 81 mg PO DAILY Bumetanide [Bumex] 1 mg PO DAILY Hydroxychloroquine [Plaquenil] 200 mg PO DAILY Losartan [Cozaar] 50 mg PO DAILY Metoprolol Succinate [Toprol XL] 50 mg PO DAILY Montelukast [Singulair] 10 mg PO DAILY Tiotropium [Spiriva HandiHaler] 18 mcg INH DAILY 03/14/18 13:00 Warfarin [Coumadin] 1.25 mg PO DAILY@1300 03/14/18 14:34 Convert IV to Saline Lock [OM.PC] Routine 03/14/18 14:45 Lactobacillus Rhamnosus GG [Culturelle] 1 cap PO BID 03/15/18 05:00 BASIC METABOLIC PANEL,BMP [CHEM] Timed INR,PT,PROTHROMBIN TIME [COAG] Timed 03/15/18 05:11 THEOPHYLLINE [CHEM] AM - Plan Plan:: ASSESSMENT AND PLAN 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 Symptoms improved from admission, theophylline level down to 18. -Hold Aminophyllin -Recheck Aminophyllin level in a.m. HISTORY OF GASTRITIS-found during recent hospitalization and associated with Helicobacter pylori. She is now completed a course of therapy for the H. pylori. She does have persistent symptoms of epigastric pain. She is intolerant of Protonix. -Increase omeprazole to 40 mg twice daily -Pepcid 20 mg IV every 12 hours -If symptoms of nausea vomiting do not improve after Aminophyllin level drops, consider repeat endoscopy CLOSTRIDIUM DIFFICILE COLITIS-stool study found to be positive -Oral vancomycin 125 mg every 6 hours -Probiotic therapy daily ATRIAL FIBRILLATION-rate well controlled, currently on anticoagulation with warfarin -INR in a.m. -Continue outpatient management COPD-well compensated at this time with no evidence of exacerbation -Hold Aminophyllin -Continue other medications MAINTENANCE ISSUES -DVT prophylaxis; current therapy with warfarin should provide adequate DVT prophylaxis -GI prophylaxis; omeprazole and Pepcid as noted above -[place] catheter; not indicated -Nutrition; regular diet -Nicotine dependence; not required CODE STATUS-FULL CODE ADMISSION STATUS-this patient will be admitted to observation status, expect no more than a one night hospital stay for evaluation and management of problems as outlined above. DISPOSITION-anticipate discharge to home after the hospital stay. PRIMARY CARE PROVIDER-Dr. Gleason
[2018-03-14] MEDS: Lactobacillus Rhamnosus GG (Probiotic) Cap PO SCH ×2 (17:25→20:16)
[2018-03-14] MEDS: Famotidine 20 MG/2 ML SDV IVPUSH SCH (20:15)
[2018-03-14] MEDS: Simvastatin 20 MG Tab PO SCH (20:15)
[2018-03-14] MEDS: Terazosin 5 MG Cap PO SCH (20:16)
[2018-03-14] MEDS ORDERED: LORazepam 0.5 MG Tab PO PRN (21:23)
[2018-03-15] MEDS: Vancomycin 250 MG/5 ML ML Oral Solution PO SCH ×2 (06:04→09:00)
[2018-03-15] MEDS: Metoclopramide 10 MG Tab PO SCH (07:51)
[2018-03-15] MEDS: Levothyroxine 25 MCG Tab PO SCH (07:51)
[2018-03-15] MEDS: Bumetanide 1 MG Tab PO SCH (08:52)
[2018-03-15] MEDS: Aspirin 81 MG Tab.EC PO SCH (08:53)
[2018-03-15] MEDS: Lactobacillus Rhamnosus GG (Probiotic) Cap PO SCH (08:53)
[2018-03-15] MEDS: Losartan 50 MG Tab PO SCH (08:53)
[2018-03-15] MEDS: Formoterol/Mometasone 200-5 MCG 8.8 GM Inhaler IH SCH (08:53)
[2018-03-15] MEDS: Amiodarone 200 MG Tab PO SCH (08:53)
[2018-03-15] MEDS: Hydroxychloroquine 200 MG Tab PO SCH (08:54)
[2018-03-15] MEDS: Potassium Chloride 20 MEQ Tab.ER PO SCH (08:54)
[2018-03-15] MEDS: Montelukast 10 MG Tab PO SCH (08:55)
[2018-03-15] MEDS: Tiotropium Inhaler 18 MCG Inhalation Powder Cap Kit of 5 INH SCH (08:55)
[2018-03-15] MEDS: Metoprolol Succinate 50 MG Tab.ER PO SCH (08:56)
[2018-03-15 08:57] VITALS: BP 135/68
[2018-03-15] MEDS: Benzonatate 100 MG Cap PO PRN (08:57)
--- NOTE | 2018-03-15 10:19 | PCM.DCSUM1 ---
Discharge Summary - Hospital Course Brief History: Ms. Molina is an 82-year-old woman who was admitted to observation status through the emergency department with diarrhea, tremor, nausea and vomiting, and epigastric abdominal pain. - Discharge Data Discharge Date: 03/15/18 Discharge Disposition: Home, W Home Health Agency 06 Condition: Fair - Discharge Diagnosis/Problem(s) (1) Clostridium difficile colitis SNOMED Code(s): 284821837 ICD Code: A04.72 - ENTEROCOLITIS D/T CLOSTRIDIUM DIFFICILE, NOT SPCF RECUR Status: Acute Current Visit: Yes (2) Stage III chronic kidney disease SNOMED Code(s): 351337016 ICD Code: N18.3 - CHRONIC KIDNEY DISEASE, STAGE 3 (MODERATE) Status: Chronic Current Visit: No (3) Acute gastritis without hemorrhage SNOMED Code(s): 40958507 ICD Code: K29.00 - ACUTE GASTRITIS WITHOUT BLEEDING Status: Acute Current Visit: No Qualifiers: Gastritis type: other gastritis Qualified Code(s): K29.00 - Acute gastritis without bleeding (4) Theophylline toxicity SNOMED Code(s): 78476257 ICD Code: R89.2 - ABN LEV DRUG/MEDS/BIOL SUBST IN SPECIMENS FROM OTH ORG/TISS ; T48.6X1A - POISONING BY ANTIASTHMATICS, ACCIDENTAL, INIT Status: Acute Current Visit: Yes - Patient Summary/Data Hospital Course: Ms. Molina is an 82-year-old woman who was admitted to observation status through the emergency department for management of nausea, vomiting and tremor secondary to Aminophyllin toxicity. She was hospitalized at this facility within the past few weeks with epigastric abdominal pain, nausea, and vomiting. CT scan of the abdomen was obtained and found to be unremarkable. EGD was obtained and showed evidence of gastritis, biopsies were obtained and found to be positive for Helicobacter pylori. She had completed a course of management for the Helicobacter. She felt well initially, but after discharge has developed recurrent symptoms in addition to tremulousness which has become significantly worse. On evaluation in the emergency department white blood cell count is normal as well as other labs. Significant abnormality identified was elevation in her theophylline level. On admission she was given IV fluids for hydration and felt to have probable theophylline toxicity causing most of her symptoms. Stool studies were obtained and did return positive for Clostridium difficile colitis. She was started on oral antibiotic therapy with vancomycin 125 mg by mouth every 6 hours. By the morning after admission theophylline level had dropped to normal range and she had noted moderate improvement in her symptoms. By the morning of discharge theophylline level had dropped lower and symptoms of nausea, vomiting, and tremulousness have essentially resolved. Diarrhea improved significantly with oral vancomycin and she will be discharged to home with an additional 10 days of oral vancomycin therapy for management of the Clostridium difficile. She will also be on a probiotic therapy twice daily over the next month. Her epigastric abdominal pain was felt to be secondary to ongoing gastritis. She is been intolerant of Protonix so she was continued on her omeprazole and also started on Pepcid 20 mg twice daily. She will be discharged home on the Pepcid for ongoing management of her gastritis. Activity will be as tolerated and she will be on a soft low residue diet. Theophylline will be discontinued because of side effects associated with toxicity. Follow-up appointment will be scheduled with her primary care provider within one week. - Patient Instructions Diet: GI Soft/Low Residue/Low Fiber Activity: As Tolerated Other/Special Instructions: Please schedule follow-up appointment with Dr. Gleason within one week. - Discharge Plan *PRESCRIPTION DRUG MONITORING PROGRAM REVIEWED*: Not Applicable *COPY OF PRESCRIPTION DRUG MONITORING REPORT IN PATIENT GERARDO: Not Applicable Prescriptions/Med Rec: Famotidine [Pepcid] 20 mg PO BID #60 tablet Lactobacillus Rhamnosus GG [Culturelle] 1 cap PO BID #60 cap Vancomycin [Vancocin 250 MG/5 ML Soln] 125 mg PO QID #100 ml Home Medications: Home Meds Simvastatin 20 mg PO BEDTIME 03/15/13 [History] Tiotropium [Spiriva Handihaler] 18 mcg INH DAILY 03/15/13 [History] traMADol [Ultram] 50 mg PO Q12H PRN 03/15/13 [History] Albuterol Sulfate [Proair Hfa] 2 puff INH Q4HR PRN 06/17/13 [History] Metoprolol Succinate 50 mg PO DAILY 06/17/13 [History] Omeprazole 20 mg PO BIDAC 06/17/13 [History] Aspirin [Adult Low Dose Aspirin EC] 81 mg PO DAILY 08/17/13 [History] Nystatin/Triamcinolone Crm [Mycolog Crm] 15 gm TOP BID 08/17/13 [History] Terazosin [Hytrin] 5 mg PO BEDTIME 11/01/14 [History] Hydroxychloroquine [Plaquenil] 200 mg PO DAILY 11/29/15 [History] Losartan [Cozaar] 50 mg PO DAILY 11/29/15 [History] Nitroglycerin 0.4 mg SL ASDIRECTED PRN 11/29/15 [History] Albuterol/Ipratropium [DuoNeb 3.0-0.5 MG/3 ML] 3 ml INH Q4H PRN 11/19/17 [ History] Levothyroxine [Synthroid] 75 mcg PO ACBREAKFAST 11/19/17 [History] Potassium Chloride 2 cap PO BID 11/19/17 [History] Warfarin [Coumadin] 1.25 tab PO DAILY@1300 11/19/17 [History] Bumetanide [Bumex] 2 mg PO DAILY 11/24/17 [History] Albuterol Sulfate [Proair Hfa] 2 puff INH QID 03/04/18 [History] Amiodarone [Cordarone] 200 mg PO DAILY 03/04/18 [History] Magnesium Oxide [Magnesium] 400 mg PO TID 03/04/18 [History] Metoprolol Succinate 25 mg PO DAILY 03/04/18 [History] Mometasone/Formoterol [Dulera 200 MCG/5 MCG] 2 puff INH BID 03/04/18 [History] Montelukast [Singulair] 10 mg PO DAILY 03/04/18 [History] Metoclopramide HCl [Reglan] 5 mg PO QIDACANDBED #0 03/08/18 [Rx] Benzonatate 1 caplet PO TID PRN 03/13/18 [History] Famotidine [Pepcid] 20 mg PO BID #60 tablet 03/15/18 [Rx] Lactobacillus Rhamnosus GG [Culturelle] 1 cap PO BID #60 cap 03/15/18 [Rx] Vancomycin [Vancocin 250 MG/5 ML Soln] 125 mg PO QID #100 ml 03/15/18 [Rx] Oxygen Therapy Mode: Nasal Cannula Patient Handouts: Clostridium Difficile Infection, [id number] Referrals: Sundeep Gleason MD [Primary Care Provider] - - Discharge Summary/Plan Comment DC Time >30 min.: No - Patient Data Vitals - Most Recent: Last Vital Signs Temp 99.1 F 03/15/18 07:26 Pulse 68 03/15/18 08:56 Resp 20 03/15/18 07:26 BP 135/68 03/15/18 08:56 Pulse Ox 89 L 03/15/18 07:26 Weight - Most Recent: 205 lb I&O - Last 24 hours: Intake & Output 03/14/18 03/15/18 03/15/18 22:59 06:59 14:59 Intake Total 1120 Output Total 400 400 300 Balance 720 -400 -300 Lab Results - Last 24 hrs: Laboratory Results - last 24 hr 03/15/18 03/15/18 03/15/18 Range/Units 05:49 05:49 05:49 PT 19.8 H (9.5-12.0) sec INR 1.86 H (0.80-1.20) Sodium 136 L (140-148) mmol/L Potassium 4.7 (3.6-5.2) mmol/L Chloride 104 (100-108) mmol/L Carbon Dioxide 26 (21-32) mmol/L Anion Gap 10.7 (5.0-14.0) mmol/L BUN 5 L (7-18) mg/dL Creatinine 0.9 (0.6-1.0) mg/dL Est Cr Clr Drug Dosing 34.62 mL/min Estimated GFR (MDRD) 60 (>60) Glucose 80 (74-106) mg/dL Calcium 8.7 (8.5-10.1) mg/dL Theophylline 8.4 L (10-20.0) ug/mL SCAR Results - Last 24 hrs: Microbiology 03/13/18 20:50 Stool Culture - Preliminary Stool / Feces NORMAL ENTERIC BECKIE 1 DAY Shiga Toxin I - Final NEGATIVE FOR SHIGA TOXIN 1 Shiga Toxin II - Final NEGATIVE FOR SHIGA TOXIN 2 Clostridium difficile (PCR) - Final Positive C. Diff Toxin Med Orders - Current: Current Medications Albuterol (Ventolin Hfa) 0 gm INH Q4H PRN PRN Reason: Shortness of Breath Albuterol (Proventil Neb Soln) 2.5 mg NEB Q4H PRN PRN Reason: Shortness Of Breath/wheezing Albuterol/Ipratropium (Duoneb 3.0-0.5 Mg/3 Ml) 3 ml NEB QID PRN PRN Reason: Shortness Of Breath/wheezing Last Admin: 03/14/18 09:13 Dose: 3 ml Amiodarone HCl (Cordarone) 200 mg PO DAILY [facility] Last Admin: 03/15/18 08:53 Dose: 200 mg Aspirin (Halfprin) 81 mg PO DAILY [facility] Last Admin: 03/15/18 08:53 Dose: 81 mg Benzonatate (Tessalon Perles) 100 mg PO Q6H PRN PRN Reason: Cough Last Admin: 03/15/18 08:57 Dose: 100 mg Bumetanide (Bumex) 1 mg PO DAILY [facility] Last Admin: 03/15/18 08:52 Dose: 1 mg Famotidine (Pepcid) 20 mg PO BEDTIME [facility] Hydroxychloroquine Sulfate (Plaquenil) 200 mg PO DAILY [facility] Last Admin: 03/15/18 08:54 Dose: 200 mg Lactobacillus Rhamnosus (Culturelle) 1 cap PO BID [facility] Last Admin: 03/15/18 08:53 Dose: 1 cap Levothyroxine Sodium (Levothyroxine) 75 mcg PO ACBREAKFAST [facility] Last Admin: 03/15/18 07:51 Dose: 75 mcg Lorazepam (Ativan) 0.5 mg PO Q4H PRN PRN Reason: Nausea/Vomiting Losartan Potassium (Cozaar) 50 mg PO DAILY [facility] Last Admin: 03/15/18 08:53 Dose: 50 mg Metoclopramide HCl (Reglan) 5 mg PO QIDACANDBED [facility] Last Admin: 03/15/18 07:51 Dose: 5 mg Metoprolol Succinate (Toprol Xl) 50 mg PO DAILY [facility] Last Admin: 03/15/18 08:56 Dose: 50 mg Mometasone Furoate/Formoterol Fumar (Dulera 200-5 Mcg) 2 puff IH BID [facility] Last Admin: 03/15/18 08:53 Dose: 2 puff Montelukast Sodium (Singulair) 10 mg PO DAILY [facility] Last Admin: 03/15/18 08:55 Dose: 10 mg Potassium Chloride (Klor-Con M20) 20 meq PO BID [facility] Last Admin: 03/15/18 08:54 Dose: 20 meq Simvastatin (Zocor) 20 mg PO BEDTIME [facility] Last Admin: 03/14/18 20:15 Dose: 20 mg Sodium Chloride (Saline Flush) 10 ml FLUSH ASDIRECTED PRN PRN Reason: Keep Vein Open Terazosin HCl (Hytrin) 5 mg PO BEDTIME [facility] Last Admin: 03/14/18 20:16 Dose: Not Given Tiotropium [place] (Spiriva Handihaler) 18 mcg INH DAILY [facility] Last Admin: 03/15/18 08:55 Dose: 18 mcg Tramadol HCl (Ultram) 50 mg PO Q4H PRN PRN Reason: Pain (severe 7-10) Last Admin: 03/14/18 08:24 Dose: 50 mg Vancomycin HCl (Vancocin 250 Mg/5 Ml Soln) 125 mg PO QID [facility] Last Admin: 03/15/18 09:00 Dose: 125 mg Warfarin Sodium (Coumadin) 1.25 mg PO DAILY@1300 [facility] Last Admin: 03/14/18 13:13 Dose: 1.25 mg Discontinued Medications Acetaminophen (Tylenol) 650 mg PO Q4H PRN PRN Reason: Pain (Mild 1-3)/fever Benzonatate (Tessalon Perles) 200 mg PO ONETIME ONE Stop: 03/13/18 14:50 Last Admin: 03/13/18 14:59 Dose: 200 mg Famotidine (Pepcid) 20 mg IVPUSH BEDTIME [facility] Last Admin: 03/14/18 20:15 Dose: 20 mg Fentanyl (Sublimaze) 50 mcg IVPUSH ONETIME ONE Stop: 03/13/18 12:49 Last Admin: 03/13/18 13:25 Dose: 50 mcg Lactated Ringer's (Ringers, Lactated) 1,000 mls @ 999 [facility]ls[facility] Admin: 03/13/18 13:25 Dose: 999 mls/hr Sodium Chloride (Normal Saline) 80 mls @ 3.5 mls/sec IV ONETIME ONE Stop: 03/13/18 12:56 Last Admin: 03/13/18 14:48 Dose: 3.5 mls/sec Lactated Ringer's (Ringers, Lactated) 1,000 mls @ 125 mls/hr IV ASDIRECTED [facility] Last Admin: 03/14/18 05:26 Dose: 125 mls/hr Potassium Chloride 40 meq/ (Premix) 100 mls @ 25 mls/hr IV ONETIME ONE Stop: 03/14/18 00:19 Last Admin: 03/13/18 23:11 Dose: 25 mls/hr Iopamidol (Isovue-300 (61%)) 129 ml IV . DIRECTED [facility] Stop: 03/13/18 13:01 Last Admin: 03/13/18 14:48 Dose: 129 ml Lorazepam (Ativan) 0.5 mg IV Q4H PRN PRN Reason: Nausea/Vomiting Last Admin: 03/14/18 18:11 Dose: 0.5 mg Ondansetron HCl (Zofran) 4 mg IVPUSH ONETIME ONE Stop: 03/13/18 12:49 Last Admin: 03/13/18 13:25 Dose: 4 mg Potassium Chloride (Klor-Con M20) 40 meq PO ONETIME ONE Stop: 03/13/18 20:21 Last Admin: 03/13/18 21:35 Dose: 40 meq Sodium Chloride (Saline Flush) 10 ml FLUSH ASDIRECTED PRN PRN Reason: Keep Vein Open Last Admin: 03/13/18 14:48 Dose: 10 ml Sodium Chloride (Saline Flush) 10 ml FLUSH ONETIME ONE Stop: 03/13/18 12:56 Last Admin: 03/13/18 13:24 Dose: 10 ml Sterile Water (Sterile Water For Injection) Confirm Administered Dose 20 ml .ROUTE .STK-MED ONE Stop: 03/13/18 22:36 Last Admin: 03/13/18 23:12 Dose: Not Given Vancomycin HCl (Vancomycin) Confirm Administered Dose 1 gm .ROUTE .STK-MED ONE Stop: 03/13/18 22:33 Last Admin: 03/13/18 23:12 Dose: Not Given - Exam Quality Assessment: Reports: DVT Prophylaxis General: Reports: Alert, Oriented, Cooperative, No Acute Distress Lungs: Reports: Clear to Auscultation, Normal Respiratory Effort Cardiovascular: Reports: Regular Rate, Regular Rhythm, No Murmurs GI/Abdominal Exam: Soft, No Organomegaly, Tender. No: Distended, Guarding, Rigid, Rebound Extremities: Non-Tender, No Pedal Edema *Q Meaningful Use (DIS) - VTE *Q VTE Pharmacological Contraindications *Q: High INR Value
[2018-03-15] MEDS ORDERED: Famotidine 20 MG Tab PO SCH (21:00)
== END 2018-03-15 11:18 | disposition home health service (06) ==
LOC: JP.ED 11:57 → JP.MS 17:22
PROVIDERS: ADMIT Hospitalist; ATTEND Hospitalist
DX: R11.2 Nausea with vomiting, unspecified (principal); T48.6X5A Adverse effect of antiasthmatics, initial encounter; I48.91 Unspecified atrial fibrillation; J44.9 Chronic obstructive pulmonary disease, unspecified; I10 Essential (primary) hypertension; E78.00 Pure hypercholesterolemia, unspecified; E03.9 Hypothyroidism, unspecified; Z79.82 Long term (current) use of aspirin; Z79.01 Long term (current) use of anticoagulants; Z79.899 Other long term (current) drug therapy; Z88.2 Allergy status to sulfonamides; Z88.8 Allergy status to other drugs, medicaments and biological substances
CPT/HCPCS: 36415; 74177; 80048; 80053; 80198; 81001; 83605; 83690; 84484; 85025; 85610; 87046; 87493; 87899; 89055; 93005; 93010; 94640; 96361; 96374; 96375; 99284; 99285; A9270; J2060; J2405; J3010; J3480; J3490; J7030; J7120; J7620-GY

== ENCOUNTER 2018-10-21 14:29 | Observation (INO) | payer BC, MEDICARE ==
[2018-10-21] MEDS ORDERED: traMADol 50 MG Tab PO PRN (15:41)
[2018-10-21] MEDS ORDERED: Albuterol/Ipratropium 3.0-0.5 MG/3 ML Neb Soln INH PRN (15:41)
[2018-10-21] MEDS ORDERED: Sodium Chloride 0.9% 10 ML Syringe FLUSH PRN (15:44)
[2018-10-21] MEDS ORDERED: Ondansetron 4 MG/2 ML SDV IV PRN (15:44)
[2018-10-21] MEDS ORDERED: Polyethylene Glycol 3350 Powder 17 GM Packet PO PRN (15:44)
[2018-10-21] MEDS ORDERED: Acetaminophen 325 MG Tab PO PRN (15:44)
[2018-10-21] MEDS ORDERED: Sodium Chloride 0.9% 1,000 ML IV SCH (16:00)
--- NOTE | 2018-10-21 16:00 | PCM.HP ---
H&P History of Present Illness - General Date of Service: 10/21/18 Admit Problem/Dx: Admission Diagnosis/Problem Admission Diagnosis/Problem Hypotension Source of Information: Patient, Old Records, Provider, RN Notes Reviewed History Limitations: Reports: No Limitations - History of Present Illness Initial Comments - Free Text/Narative: Ms. Molina is an 83-year-old woman who was admitted as a direct admission from the clinic with weakness and lightheadedness secondary to hypotension, urinary tract infection, and acute kidney injury. She has not felt well over the last 2 days prior to admission with weakness, fatigue, and lightheadedness. She was seen and evaluated in the clinic today, found to have systolic pressures in the 80s. Laboratory studies showed evidence of urinary tract infection on urinalysis and acute kidney injury with a creatinine of 2.3, significantly up from baseline. She has a known history of underlying COPD as well as congestive heart failure and coronary artery disease. She denies significant increase in shortness of breath or any symptoms of chest pain. Generalized Pain Score (Numeric/FACES): 8 - Related Data Allergies/Adverse Reactions: Allergies Allergy/AdvReac Type Severity Reaction Status Date / Time adhesive tape Allergy Other Verified 03/13/18 12:19 codeine Allergy Hives Verified 03/13/18 12:19 doxepin [Doxepin] Allergy Hives Verified 03/13/18 12:19 etodolac [From Lodine] Allergy Cannot Verified 03/13/18 12:19 Remember fosinopril sodium Allergy Hives Verified 03/13/18 12:19 [From Monopril] heparin Allergy Cannot Verified 03/13/18 12:19 Remember methylprednisolone Allergy Cannot Verified 03/13/18 12:19 [From Medrol] Remember pantoprazole [From Protonix] Allergy Cannot Verified 03/13/18 12:19 Remember Penicillins Allergy Hives Verified 03/13/18 12:19 procaine HCl [From Novocain] Allergy Hives Verified 03/13/18 12:19 Sulfa (Sulfonamide Allergy Hives Verified 03/13/18 12:19 Antibiotics) amitriptyline HCl AdvReac Hallucinati Verified 03/13/18 12:19 [From Elavil] ons amlodipine besylate AdvReac Blisters Verified 03/13/18 12:19 [From Norvasc] nortriptyline AdvReac Hallucinati Verified 03/13/18 12:19 ons quinapril HCl [From Accupril] AdvReac Hallucinati Verified 03/13/18 12:19 ons Home Medications: Home Meds Simvastatin 20 mg PO BEDTIME 03/15/13 [History] Tiotropium [Spiriva Handihaler] 18 mcg INH DAILY 03/15/13 [History] traMADol [Ultram] 50 mg PO Q12H PRN 03/15/13 [History] Metoprolol Succinate 50 mg PO DAILY 06/17/13 [History] Omeprazole 20 mg PO BIDAC 06/17/13 [History] Aspirin [Adult Low Dose Aspirin EC] 81 mg PO DAILY 08/17/13 [History] Nystatin/Triamcinolone Crm [Mycolog Crm] 15 gm TOP BID 08/17/13 [History] Terazosin [Hytrin] 5 mg PO BEDTIME 11/01/14 [History] Losartan [Cozaar] 50 mg PO DAILY 11/29/15 [History] Nitroglycerin 0.4 mg SL ASDIRECTED PRN 11/29/15 [History] Albuterol/Ipratropium [DuoNeb 3.0-0.5 MG/3 ML] 3 ml INH Q4H PRN 11/19/17 [ History] Levothyroxine [Synthroid] 100 mcg PO ACBREAKFAST 11/19/17 [History] Potassium Chloride 2 cap PO BID 11/19/17 [History] Warfarin [Coumadin] 1.25 tab PO DAILY@1300 11/19/17 [History] Bumetanide [Bumex] 3 mg PO DAILY 11/24/17 [History] Magnesium Oxide [Magnesium] 400 mg PO DAILY 03/04/18 [History] Mometasone/Formoterol [Dulera 200 MCG/5 MCG] 2 puff INH BID 03/04/18 [History] Montelukast [Singulair] 10 mg PO DAILY 03/04/18 [History] Metoclopramide HCl [Reglan] 5 mg PO QIDACANDBED #0 03/08/18 [Rx] Levothyroxine Sodium [Synthroid] 125 mcg PO 10/21/18 [History] Past Medical History HEENT History: Reports: Cataract, Hard of Hearing, Impaired Vision Cardiovascular History: Reports: Afib, High Cholesterol, Hypertension, Pacemaker Other Cardiovascular History: defibriblilation Respiratory History: Reports: COPD, Sleep Apnea, SOB, Other (See Below) Other Respiratory History: Cpap and home O2 2L prn Gastrointestinal History: Reports: Bowel Obstruction, GERD, Hiatal Hernia Genitourinary History: Reports: Urinary Incontinence, UTI, Recurrent [employer] History: Reports: , Other (See Below) Other OB/BYN History: hemorrhaging Musculoskeletal History: Reports: Back Pain, Chronic, RA Other Musculoskeletal History: Torn rotator cuff Neurological History: Reports: CVA, Migraines Endocrine/Metabolic History: Reports: Hypothyroidism, Obesity/BMI 30+ Hematologic History: Reports: Anemia, Blood Transfusion(s) - Infectious Disease History Infectious Disease History: Reports: C-Difficile, Chicken Pox, Measles, Mumps, Pertussis (Whooping Cough), Shingles - Past Surgical History Head Surgeries/Procedures: Reports: None HEENT Surgical History: Reports: Cataract Surgery Cardiovascular Surgical History: Reports: Coronary Artery Stent GI Surgical History: Reports: Appendectomy, Cholecystectomy, Hernia Repair/Other , Small Bowel Other GI Surgeries/Procedures: removal of mesh 2016 Female Surgical History: Reports: D&C, Hysterectomy, Salpingo-Oophorectomy Neurological Surgical History: Reports: Other (See Below) Musculoskeletal Surgical History: Reports: Knee Replacement, Other (See Below) Other Musculoskeletal Surgeries/Procedures:: L knee replaced Social & Family History - Family History Family Medical History: Noncontributory HEENT: Reports: Cataract Cardiac: Reports: Hypertension Respiratory: Reports: Asthma, COPD Other Respiratory Family Hisory: emphysema GI: Reports: Cholelithiasis, Colon Polyps OBGYN: Reports: Musculoskeletal: Reports: Arthritis Psychiatric: Reports: Anxiety, Depression Endocrine/Metabolic: Reports: Hypothyroidism Oncologic: Reports: Skin - Tobacco Use Smoking Status *Q: Former Smoker Years of Tobacco use: 12 Packs/Tins Daily: 1 Used Tobacco, but Quit: Yes Month/Year Tobacco Last Used: 1970s Second Hand Smoke Exposure: Yes - Caffeine Use Caffeine Use: Reports: Tea - Recreational Drug Use Recreational Drug Use: No H&P Review of Systems - Review of Systems: Review Of Systems: See Below General: Reports: Malaise, Weakness, Fatigue. Denies: Fever, Chills HEENT: Reports: No Symptoms Pulmonary: Reports: Shortness of Breath. Denies: Wheezing, Pleuritic Chest Pain , Cough, Sputum, Hemoptysis Cardiovascular: Reports: Dyspnea on Exertion, Lightheadedness. Denies: Chest Pain, Palpitations, Orthopnea, PND, Edema, Syncope Gastrointestinal: Reports: No Symptoms Genitourinary: Reports: No Symptoms Musculoskeletal: Reports: No Symptoms Skin: Reports: No Symptoms Psychiatric: Reports: No Symptoms Neurological: Reports: No Symptoms Hematologic/Lymphatic: Reports: No Symptoms Immunologic: Reports: No Symptoms Exam - Exam Exam: See Below - Vital Signs Vital Signs: Last Vital Signs Temp 96.5 F 10/21/18 14:44 Pulse 60 10/21/18 14:44 Resp 18 10/21/18 14:44 BP 134/41 L 10/21/18 14:44 Pulse Ox 97 10/21/18 14:44 Weight: 176 lb 8 oz - Exam Quality Assessment: DVT Prophylaxis General: Alert, Oriented, Cooperative, Mild Distress HEENT: Conjunctiva Clear, Hearing Intact, Mucosa Moist & Canon, Normal Nasal Septum, Posterior Pharynx Clear, Pupils Equal Neck: Supple, Trachea Midline, +2 Carotid Pulse wo Bruit Lungs: Clear to Auscultation, Normal Respiratory Effort, Decreased Breath Sounds. No: Rales, Rhonchi, Wheezing Cardiovascular: Regular Rate, Regular Rhythm, Normal S1, Normal S2. No: Systolic Murmur, Diastolic Murmur GI/Abdominal Exam: Soft, Non-Tender, No Organomegaly, No Distention Back Exam: Normal Inspection, Full Range of Motion Extremities: Non-Tender, No Pedal Edema Skin: Warm, Dry, Intact Neurological: Cranial Nerves Intact, Strength Equal Bilateral, Normal Speech, Normal Tone, Sensation Intact. No: Focal Deficit Neuro Extensive - Mental Status: Alert, Oriented x3, Normal Mood/Affect, Normal Cognition, Memory Intact - Patient Data Result Diagrams: 10/21/18 15:55 10/21/18 15:55 *Q Meaningful Use (ADM) - VTE *Q VTE Pharmacological Contraindications *Q: High INR Value - VTE Risk Assess *Q Each Risk Factor Represents 1 Point: Obesity ( BMI > 25 kg/m2), Congestive heart failure (CHF), Abnormal Pulmonary Function (COPD) Total Score 1 Point Risk Factors: 3 Each Risk Factor Represents 2 Points: None Total Score 2 Point Risk Factors: 0 Each Risk Factor Represents 3 Points: Age 75 Years or Greater Total Score 3 Point Risk Factors: 3 Each Risk Factor Represents 5 Points: None Total Score 5 Point Risk Factors: 0 Venous Thromboembolism Risk Factor Score *Q: 6 Problem List Initiated/Reviewed/Updated: Yes Orders Last 24hrs: Active Orders 24 hr Category Date Time Status Patient Status [ADT] Routine ADT 10/21/18 15:44 Active Ambulate [RC] QID Care 10/21/18 15:44 Active Cardiac Monitoring [RC] .As Directed Care 10/21/18 15:45 Active Height and Weight [RC] DAILY Care 10/21/18 15:44 Active Intake and Output [RC] QSHIFT Care 10/21/18 15:44 Active Notify Provider Vital Signs [RC] ASDIRECTED Care 10/21/18 15:44 Active Orthostatic Vital Signs [RC] ASDIRECTED Care 10/21/18 15:51 Active Oxygen Therapy [RC] PRN Care 10/21/18 15:44 Active Peripheral IV Care [RC] . DIRECTED Care 10/21/18 15:48 Active Up With Assistance [RC] ASDIRECTED Care 10/21/18 15:44 Active Up to Chair [RC] QID Care 10/21/18 15:44 Active VTE/DVT Education [RC] Per Unit Routine Care 10/21/18 15:44 Active Vital Signs [RC] Q4H Care 10/21/18 15:44 Active PT Evaluation and Treatment [CONS] Routine Cons 10/21/18 15:44 Active 2 Gram Sodium Diet [DIET] Diet 10/21/18 Lunch Active BASIC METABOLIC PANEL,BMP [CHEM] Timed Lab 10/22/18 05:00 Ordered CBC WITH AUTO DIFF [HEME] Stat Lab 10/21/18 15:44 Ordered CBC WITH AUTO DIFF [HEME] Timed Lab 10/22/18 05:00 Ordered COMPREHENSIVE METABOLIC PN,CMP [CHEM] Stat Lab 10/21/18 15:44 Ordered CULTURE URINE [RM] Routine Lab 10/21/18 15:51 Ordered INR,PT,PROTHROMBIN TIME [COAG] Stat Lab 10/21/18 15:44 Ordered INR,PT,PROTHROMBIN TIME [COAG] Timed Lab 10/22/18 05:00 Ordered MAGNESIUM [CHEM] Stat Lab 10/21/18 15:44 Ordered MAGNESIUM [CHEM] Timed Lab 10/22/18 05:00 Ordered Acetaminophen [Tylenol] Med 10/21/18 15:44 Active 650 mg PO Q4H PRN Albuterol/Ipratropium [DuoNeb 3.0-0.5 MG/3 ML] Med 10/21/18 15:41 Active 3 ml INH Q4H PRN Aspirin [Halfprin] Med 10/22/18 09:00 Active 81 mg PO DAILY Bumetanide [Bumex] Med 10/22/18 09:00 Active 3 mg PO DAILY Lactobacillus Rhamnosus GG [Culturelle] Med 10/21/18 17:00 Active 1 cap PO BID Levothyroxine [Synthroid] Med 10/22/18 07:30 Ordered 75 mcg PO ACBREAKFAST Losartan [Cozaar] Med 10/22/18 09:00 Ordered 25 mg PO DAILY Magnesium Oxide [Magnesium] Med 10/22/18 09:00 Ordered 400 mg PO DAILY Metoclopramide HCl [Reglan] Med 10/21/18 17:00 Ordered 5 mg PO QIDACANDBED Metoprolol Succinate [Toprol XL] Med 10/22/18 09:00 Ordered 25 mg PO DAILY Mometasone/Formoterol [Dulera 200-5 MCG] Med 10/21/18 21:00 Ordered 2 puff IH BID Montelukast [Singulair] Med 10/22/18 09:00 Ordered 10 mg PO DAILY Omeprazole [Omeprazole] Med 10/21/18 16:30 Ordered 20 mg PO BIDAC Ondansetron [Zofran] Med 10/21/18 15:44 Ordered 4 mg IV Q4H PRN Polyethylene Glycol 3350 [MiraLAX] Med 10/21/18 15:44 Ordered 17 gm PO DAILY PRN Potassium Chloride Med 10/21/18 21:00 Ordered DOSE meq PO BID Simvastatin [Zocor] Med 10/21/18 21:00 Ordered 20 mg PO BEDTIME Sodium Chloride 0.9% [Normal Saline] 1,000 ml Med 10/21/18 16:00 Active IV ASDIRECTED Sodium Chloride 0.9% [Normal Saline] 1,000 ml Med 10/21/18 20:00 Active IV ASDIRECTED Sodium Chloride 0.9% [Saline Flush] Med 10/21/18 15:44 Active 10 ml FLUSH ASDIRECTED PRN Tiotropium [Spiriva Handihaler] Med 10/22/18 09:00 Ordered 18 mcg INH DAILY Warfarin [Coumadin] Med 10/22/18 13:00 Ordered 3.125 mg PO DAILY@1300 cefTRIAXone [Rocephin] 1 gm Med 10/21/18 17:00 Active Sodium Chloride 0.9% [Normal Saline] 50 ml IV Q24H traMADol [Ultram] Med 10/21/18 15:41 Ordered 50 mg PO Q12H PRN Peripheral IV Insertion Adult [OM.PC] Routine Oth 10/21/18 15:44 Ordered VTE Pharmacological Contraindications [AST] Per Unit Oth 10/21/18 15:44 Ordered Routine Resuscitation Status Routine Resus Stat 10/21/18 15:44 Ordered Medication Orders Acetaminophen (Tylenol) 650 mg PO Q4H PRN PRN Reason: Pain (Mild 1-3)/fever Albuterol/Ipratropium (Duoneb 3.0-0.5 Mg/3 Ml) 3 ml INH Q4H PRN PRN Reason: Shortness of Breath Aspirin (Halfprin) 81 mg PO DAILY PAUL Bumetanide (Bumex) 3 mg PO DAILY PAUL Ceftriaxone Sodium 1 gm/ (Sodium Chloride) 50 mls @ 100 mls/hr IV Q24H PAUL Sodium Chloride (Normal Saline) 1,000 mls @ 250 mls/hr IV ASDIRECTED PAUL Stop: 10/21/18 20:01 Sodium Chloride (Normal Saline) 1,000 mls @ 75 mls/hr IV ASDIRECTED PAUL Lactobacillus Rhamnosus (Culturelle) 1 cap PO BID PAUL Levothyroxine Sodium (Synthroid) 75 mcg PO ACBREAKFAST PAUL Losartan Potassium (Cozaar) 25 mg PO DAILY PAUL Metoprolol Succinate (Toprol Xl) 25 mg PO DAILY PAUL Mometasone Furoate/Formoterol Fumar (Dulera 200-5 Mcg) 2 puff IH BID PAUL Montelukast Sodium (Singulair) 10 mg PO DAILY PAUL Non-Formulary Medication (Magnesium Oxide [Magnesium]) 400 mg PO DAILY PAUL Non-Formulary Medication (Metoclopramide Hcl [Reglan]) 5 mg PO QIDACANDBED PAUL Non-Formulary Medication (Omeprazole [Omeprazole]) 20 mg PO BIDAC PAUL Non-Formulary Medication (Tiotropium [Spiriva Handihaler]) 18 mcg INH DAILY PAUL Ondansetron HCl (Zofran) 4 mg IV Q4H PRN PRN Reason: Nausea/Vomiting Polyethylene Glycol (Miralax) 17 gm PO DAILY PRN PRN Reason: Constipation Potassium Chloride (Potassium Chloride) meq PO BID [facility] Simvastatin (Zocor) 20 mg PO BEDTIME [facility] Sodium Chloride (Saline Flush) 10 ml FLUSH ASDIRECTED PRN PRN Reason: Keep Vein Open Tramadol HCl (Ultram) 50 mg PO Q12H PRN PRN Reason: Pain (severe 7-10) Warfarin Sodium (Coumadin) 3.125 mg PO DAILY@1300 [facility] Assessment/Plan Comment:: ASSESSMENT AND PLAN HYPOTENSION-causing symptoms of weakness, fatigue, and lightheadedness. Likely multi-factorial related to blood pressure medications and possible dehydration. She does have recurrent to underlying urinary tract infection as well, no evidence of sepsis. -Decrease Cozaar to 25 mg by mouth daily -Decrease metoprolol XL to 25 mg by mouth daily -Discontinue tear Zosyn -IV fluids for hydration, reassess in a.m. -Orthostatic vital signs -Cardiac monitoring URINARY TRACT INFECTION-history of recurrent infections over the past several months, she just has completed a course of doxycycline. -Urine culture pending -Ceftriaxone 1 g IV every 24 hours pending culture results ACUTE KIDNEY INJURY-likely secondary to hypotension and dehydration -IV fluids as above -Closely monitor urine output and renal function CHRONIC ANTICOAGULATION-INR supratherapeutic -Hold warfarin -Vitamin K 1 mg IV now -Reassess INR in a.m. COPD-all compensated on current therapy -Continue current outpatient medications CONGESTIVE HEART FAILURE-well compensated on current therapy -Note changes in medical therapy as above CORONARY ARTERY DISEASE-currently asymptomatic MAINTENANCE ISSUES -DVT prophylaxis; current therapy with warfarin should provide adequate DVT prophylaxis -GI prophylaxis; continue outpatient PPI therapy -[place] catheter; not indicated -Nutrition; 2 g sodium diet -Nicotine dependence; not required CODE STATUS-DNR/DNI ADMISSION STATUS-this patient will be admitted to observation status, expect no more than a one night hospital stay for evaluation and management of problems as outlined above. DISPOSITION-anticipate discharge to home after the hospital stay. PRIMARY CARE PROVIDER-Dr. Gleason
[2018-10-21] MEDS: cefTRIAXone 1 GM in Sodium Chloride 0.9% 50 ML IV SCH (17:19)
[2018-10-21] MEDS: Lactobacillus Rhamnosus GG (Probiotic) Cap PO SCH ×2 (17:26→21:07)
[2018-10-21] MEDS: OMEPRAZOLE 20 MG PO SCH (17:26)
[2018-10-21] MEDS: Metoclopramide 10 MG Tab PO SCH ×2 (17:27→21:07)
[2018-10-21] MEDS ORDERED: Phytonadione 1 MG in Sodium Chloride 0.9% 50 ML IV ONE (17:30)
[2018-10-21] MEDS ORDERED: Magnesium Sulfate/Water 2 GM in Premix Bag 1 BAG IV ONE (18:00)
[2018-10-21] MEDS: Potassium Chloride 10 MEQ Cap.ER PO SCH (21:07)
[2018-10-21] MEDS: Simvastatin 20 MG Tab PO SCH (21:08)
[2018-10-21] MEDS: MOMETASONE INH SCH (21:08)
[2018-10-21] MEDS: FORMOTEROL INH SCH (21:08)
[2018-10-21] MEDS: Sodium Chloride 0.9% 1,000 ML IV SCH (23:02)
[2018-10-22] MEDS: Sodium Chloride 0.9% 1,000 ML IV SCH (07:23)
[2018-10-22] MEDS: LEVOTHYROXINE 125 MCG PO SCH (07:26)
[2018-10-22] MEDS: Metoclopramide 10 MG Tab PO SCH ×4 (07:26→20:35)
[2018-10-22] MEDS: OMEPRAZOLE 20 MG PO SCH ×2 (07:26→16:41)
[2018-10-22] MEDS ORDERED: Levothyroxine 100 MCG Tab**POM PO SCH (07:30)
[2018-10-22] MEDS ORDERED: Levothyroxine 100 MCG Tab PO SCH (07:30)
[2018-10-22] MEDS: Aspirin 81 MG Tab.EC**POM PO SCH (08:15)
[2018-10-22] MEDS: Magnesium Oxide 400 MG Tab PO SCH (08:15)
[2018-10-22] MEDS: Potassium Chloride 10 MEQ Cap.ER PO SCH ×2 (08:15→20:35)
[2018-10-22] MEDS: Montelukast 10 MG Tab PO SCH (08:15)
[2018-10-22] MEDS: Lactobacillus Rhamnosus GG (Probiotic) Cap PO SCH ×2 (08:16→20:35)
[2018-10-22] MEDS: MOMETASONE INH SCH ×2 (08:17→20:30)
[2018-10-22] MEDS: FORMOTEROL INH SCH ×2 (08:17→20:30)
[2018-10-22] MEDS: SPIRIVA INH SCH (08:18)
[2018-10-22] MEDS ORDERED: Losartan 50 MG Tab**POM PO SCH (09:00)
[2018-10-22] MEDS ORDERED: BUMETANIDE 1 MG PO SCH (09:00)
[2018-10-22] MEDS ORDERED: Metoprolol Succinate 50 MG Tab.ER**POM PO SCH (09:00)
--- NOTE | 2018-10-22 10:33 | PCM.PN ---
- General Info Date of Service: 10/22/18 Subjective Update: Ms. Molina has felt improved since admission with less lightheadedness and weakness. Overall blood pressure is been within better range. Vital signs otherwise stable and she has remained afebrile. Functional Status: Reports: Tolerating Diet, Ambulating, Urinating - Review of Systems General: Reports: Weakness, Fatigue. Denies: Fever, Chills Pulmonary: Reports: No Symptoms Cardiovascular: Reports: Edema, Lightheadedness. Denies: Chest Pain, Palpitations, Dyspnea on Exertion, Orthopnea, PND Gastrointestinal: Reports: No Symptoms - Patient Data Vitals - Most Recent: Last Vital Signs Temp 97.1 F 10/22/18 10:25 Pulse 61 10/22/18 10:25 Resp 18 10/22/18 10:25 BP 121/73 10/22/18 10:25 Pulse Ox 97 10/22/18 10:25 Orthostatic Blood Pressure [ 108/53 Standing] Orthostatic Blood Pressure [ 115/42 Sitting] Orthostatic Blood Pressure [ 115/18 Supine] Weight - Most Recent: 177 lb 6.4 oz I&O - Last 24 Hours: Intake & Output 10/21/18 10/22/18 10/22/18 22:59 06:59 14:59 Intake Total 866 1500 481 Output Total 850 650 400 Balance 16 850 81 Lab Results Last 24 Hours: Laboratory Results - last 24 hr 10/21/18 10/21/18 10/21/18 Range/Units 15:55 15:55 15:55 WBC 8.9 (4.5-11.0) K/uL RBC 3.65 (3.30-5.50) M/uL Hgb 10.6 L (12.0-15.0) g/dL Hct 33.4 L (36.0-48.0) % MCV 92 (80-98) fL MCH 29 (27-31) pg MCHC 32 (32-36) % Plt Count 191 (150-400) K/uL Neut % (Auto) 59 (36-66) % Lymph % (Auto) 29 (24-44) % Bandera % (Auto) 11 H (2-6) % Eos % (Auto) 1 L (2-4) % Baso % (Auto) 0 (0-1) % PT 50.7 H (9.5-12.0) sec INR 5.15 H* (0.80-1.20) Sodium 143 (140-148) mmol/L Potassium 4.2 (3.6-5.2) mmol/L Chloride 106 (100-108) mmol/L Carbon Dioxide 29 (21-32) mmol/L Anion Gap 8.2 (5.0-14.0) mmol/L BUN 47 H D (7-18) mg/dL Creatinine 2.4 H D (0.6-1.0) mg/dL Est Cr Clr Drug Dosing 12.76 mL/min Estimated GFR (MDRD) 19 L (>60) Glucose 94 (74-106) mg/dL Calcium 9.1 (8.5-10.1) mg/dL Magnesium 1.7 L (1.8-2.4) mg/dL Total Bilirubin 0.5 (0.2-1.0) mg/dL AST 16 (15-37) U/L ALT 16 (12-78) U/L Alkaline Phosphatase 66 (46-116) U/L Total Protein 6.1 L (6.4-8.2) g/dL Albumin 2.9 L (3.4-5.0) g/dL Globulin 3.2 (2.3-3.5) g/dL Albumin/Globulin Ratio 0.9 L (1.2-2.2) TSH, Ultra Sensitive (0.358-3.740) uIU/mL 10/22/18 10/22/18 Range/Units 04:30 05:14 WBC (4.5-11.0) K/uL RBC (3.30-5.50) M/uL Hgb (12.0-15.0) g/dL Hct (36.0-48.0) % MCV (80-98) fL MCH (27-31) pg MCHC (32-36) % Plt Count (150-400) K/uL Neut % (Auto) (36-66) % Lymph % (Auto) (24-44) % Bandera % (Auto) (2-6) % Eos % (Auto) (2-4) % Baso % (Auto) (0-1) % PT 19.4 H (9.5-12.0) sec INR 1.86 H D (0.80-1.20) Sodium 146 (140-148) mmol/L Potassium 4.2 (3.6-5.2) mmol/L Chloride 114 H (100-108) mmol/L Carbon Dioxide 24 (21-32) mmol/L Anion Gap 12.2 (5.0-14.0) mmol/L BUN 43 H (7-18) mg/dL Creatinine 2.0 H (0.6-1.0) mg/dL Est Cr Clr Drug Dosing 15.31 mL/min Estimated GFR (MDRD) 24 L (>60) Glucose 90 (74-106) mg/dL Calcium 8.5 (8.5-10.1) mg/dL Magnesium 2.3 D (1.8-2.4) mg/dL Total Bilirubin (0.2-1.0) mg/dL AST (15-37) U/L ALT (12-78) U/L Alkaline Phosphatase (46-116) U/L Total Protein (6.4-8.2) g/dL Albumin (3.4-5.0) g/dL Globulin (2.3-3.5) g/dL Albumin/Globulin Ratio (1.2-2.2) TSH, Ultra Sensitive 0.010 L (0.358-3.740) uIU/mL Med Orders - Current: Current Medications Acetaminophen (Tylenol) 650 mg PO Q4H PRN PRN Reason: Pain (Mild 1-3)/fever Albuterol/Ipratropium (Duoneb 3.0-0.5 Mg/3 Ml) 3 ml INH Q4H PRN PRN Reason: Shortness of Breath Aspirin (Halfprin) 81 mg PO DAILY [facility] Last Admin: 10/22/18 08:15 Dose: 81 mg Ceftriaxone Sodium 1 gm/ (Sodium Chloride) 50 mls @ 100 mls/hr IV Q24H [facility] Last Admin: 10/21/18 17:19 Dose: 100 mls/hr Lactobacillus Rhamnosus (Culturelle) 1 cap PO BID [facility] Last Admin: 10/22/18 08:16 Dose: 1 cap Levothyroxine Sodium (Levothyroxine) 125 mcg PO ACBREAKFAST [facility] Losartan Potassium (Cozaar) 50 mg PO DAILY [facility] Last Admin: 10/22/18 08:15 Dose: 50 mg Magnesium Oxide (Magnesium Oxide) 400 mg PO DAILY [facility] Last Admin: 10/22/18 08:15 Dose: 400 mg Metoclopramide HCl (Reglan) 5 mg PO QIDACANDBED [facility] Last Admin: 10/22/18 10:24 Dose: 5 mg Metoprolol Succinate (Toprol Xl) 50 mg PO DAILY [facility] Last Admin: 10/22/18 08:15 Dose: 50 mg Montelukast Sodium (Singulair) 10 mg PO DAILY [facility] Last Admin: 10/22/18 08:15 Dose: 10 mg Dulera 200-5mcg Aero (InhPom) 0 each INH BIDRT [facility] Last Admin: 10/22/18 08:17 Dose: 2 each Omeprazole 20 Mg Cap (Pom) 0 mg PO BIDAC [facility] Last Admin: 10/22/18 07:26 Dose: Not Given Spiriva Inhaler (18mcg/CapPom) 0 each INH DAILY [facility] Last Admin: 10/22/18 08:18 Dose: 1 each Levothyroxine 125mcg (TabPom) 0 each PO ACBREAKFAST [facility] Last Admin: 10/22/18 07:26 Dose: 1 each Ondansetron HCl (Zofran) 4 mg IV Q4H PRN PRN Reason: Nausea/Vomiting Polyethylene Glycol (Miralax) 17 gm PO DAILY PRN PRN Reason: Constipation Potassium Chloride (Potassium Chloride) 20 meq PO BID [facility] Last Admin: 10/22/18 08:15 Dose: 20 meq Simvastatin (Zocor) 20 mg PO BEDTIME [facility] Last Admin: 10/21/18 21:08 Dose: 20 mg Sodium Chloride (Saline Flush) 10 ml FLUSH ASDIRECTED PRN PRN Reason: Keep Vein Open Tramadol HCl (Ultram) 50 mg PO Q12H PRN PRN Reason: Pain (severe 7-10) Warfarin Sodium (Coumadin) 1.25 mg PO DAILY@1300 [facility] Discontinued Medications Bumetanide (Bumex) 3 mg PO DAILY [facility] Last Admin: 10/22/18 08:16 Dose: 3 mg Sodium Chloride (Normal Saline) 1,000 mls @ 250 mls/hr IV ASDIRECTED [facility] Stop: 10/21/18 20:01 Last Admin: 10/21/18 20:32 Dose: 250 mls/hr Sodium Chloride (Normal Saline) 1,000 mls @ 75 mls/hr IV ASDIRECTED [facility] Last Admin: 10/22/18 07:23 Dose: 75 mls/hr Phytonadione 1 mg/ Sodium (Chloride) 50.5 mls @ 100 mls/hr IV ONETIME ONE Stop: 10/21/18 18:00 Last Admin: 10/21/18 18:08 Dose: 100 mls/hr Magnesium Sulfate 2 gm/ Premix 50 mls @ 25 mls/hr IV ONETIME ONE Stop: 10/21/18 19:59 Last Admin: 10/21/18 19:08 Dose: 25 mls/hr Levothyroxine Sodium (Synthroid) 100 mcg PO ACBREAKFAST [facility] Last Admin: 10/22/18 07:26 Dose: 100 mcg Warfarin Sodium (Coumadin) 3.125 mg PO DAILY@1300 [facility] - Exam Quality Assessment: DVT Prophylaxis General: Alert, Oriented, Cooperative, Mild Distress Lungs: Clear to Auscultation, Normal Respiratory Effort Cardiovascular: Regular Rate, Regular Rhythm, No Murmurs GI/Abdominal Exam: Soft, Non-Tender, No Organomegaly, No Distention Extremities: Non-Tender, Pedal Edema - Problem List Review Problem List Initiated/Reviewed/Updated: Yes - My Orders Last 24 Hours: My Active Orders 10/21/18 15:41 Albuterol/Ipratropium [DuoNeb 3.0-0.5 MG/3 ML] 3 ml INH Q4H PRN traMADol [Ultram] 50 mg PO Q12H PRN 10/21/18 15:44 Patient Status [ADT] Routine Ambulate [RC] QID Height and Weight [RC] 0500 Intake and Output [RC] QSHIFT Notify Provider Vital Signs [RC] ASDIRECTED Oxygen Therapy [RC] PRN Up With Assistance [RC] ASDIRECTED Up to Chair [RC] QID VTE/DVT Education [RC] Per Unit Routine Vital Signs [RC] Q4H PT Evaluation and Treatment [CONS] Routine Acetaminophen [Tylenol] 650 mg PO Q4H PRN Ondansetron [Zofran] 4 mg IV Q4H PRN Polyethylene Glycol 3350 [MiraLAX] 17 gm PO DAILY PRN Sodium Chloride 0.9% [Saline Flush] 10 ml FLUSH ASDIRECTED PRN Peripheral IV Insertion Adult [OM.PC] Routine VTE Pharmacological Contraindications [AST] Per Unit Routine Resuscitation Status Routine 10/21/18 15:45 Cardiac Monitoring [RC] .As Directed 10/21/18 15:48 Peripheral IV Care [RC] . DIRECTED 10/21/18 15:51 Orthostatic Vital Signs [RC] ASDIRECTED CULTURE URINE [RM] Routine 10/21/18 16:30 Omeprazole [Omeprazole] 0 mg PO BIDAC 10/21/18 17:00 Lactobacillus Rhamnosus GG [Culturelle] 1 cap PO BID Metoclopramide [Reglan] 5 mg PO QIDACANDBED cefTRIAXone [Rocephin] 1 gm Sodium Chloride 0.9% [Normal Saline] 50 ml IV Q24H 10/21/18 21:00 Non-Formulary Medication [NF Drug] 0 each INH BIDRT Potassium Chloride 20 meq PO BID Simvastatin [Zocor] 20 mg PO BEDTIME 10/21/18 Lunch 2 Gram Sodium Diet [DIET] 10/22/18 07:30 Non-Formulary Medication [NF Drug] 0 each PO ACBREAKFAST 10/22/18 08:21 Convert IV to Saline Lock [OM.PC] Routine 10/22/18 09:00 Aspirin [Halfprin] 81 mg PO DAILY Losartan [Cozaar] 50 mg PO DAILY Magnesium Oxide 400 mg PO DAILY Metoprolol Succinate [Toprol XL] 50 mg PO DAILY Montelukast [Singulair] 10 mg PO DAILY Non-Formulary Medication [NF Drug] 0 each INH DAILY 10/22/18 13:00 Warfarin [Coumadin] 1.25 mg PO DAILY@1300 10/23/18 05:00 BASIC METABOLIC PANEL,BMP [CHEM] Timed 10/23/18 05:11 INR,PT,PROTHROMBIN TIME [COAG] AM 10/23/18 07:30 Levothyroxine 125 mcg PO ACBREAKFAST - Plan Plan:: ASSESSMENT AND PLAN HYPOTENSION-causing symptoms of weakness, fatigue, and lightheadedness. Likely multi-factorial related to blood pressure medications and possible dehydration. Improved from admission with less lightheadedness. -Decrease Cozaar to 25 mg by mouth daily -Decrease metoprolol XL to 25 mg by mouth daily -Discontinue terazosin -Saline lock IV -Cardiac monitoring URINARY TRACT INFECTION-history of recurrent infections over the past several months, she just has completed a course of doxycycline. -Urine culture pending -Ceftriaxone 1 g IV every 24 hours pending culture results ACUTE KIDNEY INJURY-likely secondary to hypotension and dehydration, renal function improved from admission but still remains elevated -Closely monitor urine output and renal function CHRONIC ANTICOAGULATION-INR slightly subtherapeutic after vitamin K yesterday -Warfarin 1.25 mg by mouth daily -Reassess INR in a.m. IATROGENIC HYPERTHYROIDISM-TSH significantly suppressed, patient has been confused about medications and amount. Apparently dose was increased to 125 g from 100 g. She has continued to take both doses of medication for a total daily dose of 225 g. -Levothyroxin 125 g daily -Reassess TSH in 4-6 weeks COPD-all compensated on current therapy -Continue current outpatient medications CONGESTIVE HEART FAILURE-well compensated on current therapy -Note changes in medical therapy as above CORONARY ARTERY DISEASE-currently asymptomatic MAINTENANCE ISSUES -DVT prophylaxis; current therapy with warfarin should provide adequate DVT prophylaxis -GI prophylaxis; continue outpatient PPI therapy -De La Cruz catheter; not indicated -Nutrition; 2 g sodium diet -Nicotine dependence; not required CODE STATUS-DNR/DNI ADMISSION STATUS-this patient will be admitted to observation status, expect no more than a one night hospital stay for evaluation and management of problems as outlined above. DISPOSITION-anticipate discharge to home after the hospital stay. PRIMARY CARE PROVIDER-Dr. Gleason
[2018-10-22] MEDS ORDERED: WARFARIN 2.5 MG PO SCH ×2 (13:00)
[2018-10-22] MEDS: cefTRIAXone 1 GM in Sodium Chloride 0.9% 50 ML IV SCH (16:45)
[2018-10-22] MEDS: Simvastatin 20 MG Tab PO SCH (20:36)
[2018-10-23] MEDS: FORMOTEROL INH SCH (07:15)
[2018-10-23] MEDS: MOMETASONE INH SCH (07:15)
[2018-10-23] MEDS ORDERED: Levothyroxine 25 MCG Tab PO SCH (07:30)
[2018-10-23] MEDS: Lactobacillus Rhamnosus GG (Probiotic) Cap PO SCH (08:06)
[2018-10-23] MEDS: Metoclopramide 10 MG Tab PO SCH (08:37)
[2018-10-23] MEDS: Montelukast 10 MG Tab PO SCH (08:39)
[2018-10-23] MEDS: Potassium Chloride 10 MEQ Cap.ER PO SCH (08:39)
[2018-10-23] MEDS: Magnesium Oxide 400 MG Tab PO SCH (08:40)
[2018-10-23] MEDS: LEVOTHYROXINE 125 MCG PO SCH (08:40)
[2018-10-23] MEDS: OMEPRAZOLE 20 MG PO SCH (08:41)
[2018-10-23 08:45] VITALS: BP 131/44; PULSE 62
[2018-10-23] MEDS: Aspirin 81 MG Tab.EC**POM PO SCH (08:46)
[2018-10-23] MEDS: SPIRIVA INH SCH ×2 (08:47→11:07)
[2018-10-23] MEDS ORDERED: Losartan 50 MG Tab**POM PO SCH (09:00)
[2018-10-23] MEDS ORDERED: BUMETANIDE 1 MG PO SCH (09:00)
[2018-10-23] MEDS ORDERED: Metoprolol Succinate 50 MG Tab.ER**POM PO SCH (09:00)
--- NOTE | 2018-10-23 10:10 | PCM.DCSUM1 ---
Discharge Summary - Hospital Course Brief History: Ms. Lee an 83-year-old woman who was admitted as a direct admission from the clinic with lightheadedness and weakness, secondary to hypotensionand acute kidney injury. - Discharge Data Discharge Date: 10/23/18 Discharge Disposition: Home, Self-Care 01 Condition: Good - Discharge Diagnosis/Problem(s) (1) Hypotension SNOMED Code(s): 28017186 ICD Code: I95.9 - HYPOTENSION, UNSPECIFIED Status: Acute Current Visit: Yes (2) Acute kidney injury SNOMED Code(s): 37922668, 57281178 ICD Code: N17.9 - ACUTE KIDNEY FAILURE, UNSPECIFIED Status: Acute Current Visit: Yes (3) Stage III chronic kidney disease SNOMED Code(s): 736632204 ICD Code: N18.3 - CHRONIC KIDNEY DISEASE, STAGE 3 (MODERATE) Status: Chronic Current Visit: No - Patient Summary/Data Consults: Consultations 10/21/18 15:44 PT Evaluation and Treatment [CONS] Routine Please Evaluate and Treat. PT Reason for Consult: weakness This query below is only for informational purposes and is not editable. Hospital Course: Ms. Molina is an 83-year-old woman who was admitted as a direct admission from the clinic with weakness and lightheadedness secondary to hypotension, urinary tract infection, and acute kidney injury. She has not felt well over the last 2 days prior to admission with weakness, fatigue, and lightheadedness. She was seen and evaluated in the clinic today, found to have systolic pressures in the 80s. Laboratory studies showed evidence of urinary tract infection on urinalysis and acute kidney injury with a creatinine of 2.3, significantly up from baseline. She has a known history of underlying COPD as well as congestive heart failure and coronary artery disease. She denies significant increase in shortness of breath or any symptoms of chest pain. On admission she was given IV fluids for hydration. Urine culture was obtained and she was started on IV antibiotic therapy with ceftriaxone. Urine culture grew only mixed cielo by the time of discharge and antibiotic therapy was discontinued. On admission she was also noted to have evidence of acute kidney injury with creatinine elevated at 2.4. This had improved by the time of discharge was down to 1.9, not yet back to baseline. Doses of blood pressure medications were changed and discontinued during hospitalization. The Terazosin was discontinued and doses of Cozaar and metoprolol were decreased to 25 mg daily. By the time of discharge lightheadedness had totally resolved and she was ambulating independently. INR was found to be supratherapeutic on admission, she was given 1 mg of vitamin K IV. At the time of discharge INR is subtherapeutic, she will be continued on her usual dose of warfarin and will have follow-up intment in the warfarin clinic on October 26. Follow-up appointment will be scheduled with primary care provider for October 26 and a BMP should be obtained at the time of follow-up appointment. Activity will be as tolerated and she will be on a low- sodium diet. - Patient Instructions Diet: Low Sodium Activity: As Tolerated Other/Special Instructions: Please schedule follow-up appointment with primary care provider, on October 26. Please schedule appointment in Coumadin clinic on October 26. BMP should be obtained at the time of follow-up appointment with primary care. - Discharge Plan *PRESCRIPTION DRUG MONITORING PROGRAM REVIEWED*: Not Applicable *COPY OF PRESCRIPTION DRUG MONITORING REPORT IN PATIENT GERARDO: Not Applicable Prescriptions/Med Rec: Losartan [Cozaar] 25 mg PO DAILY #30 tab Metoprolol Succinate 25 mg PO DAILY #30 tab.er.24h Home Medications: Home Meds Simvastatin 20 mg PO BEDTIME 03/15/13 [History] Tiotropium [Spiriva Handihaler] 18 mcg INH DAILY 03/15/13 [History] traMADol [Ultram] 50 mg PO Q12H PRN 03/15/13 [History] Omeprazole 20 mg PO BIDAC 06/17/13 [History] Aspirin [Adult Low Dose Aspirin EC] 81 mg PO DAILY 08/17/13 [History] Nystatin/Triamcinolone Crm [Mycolog Crm] 15 gm TOP BID 08/17/13 [History] Nitroglycerin 0.4 mg SL ASDIRECTED PRN 11/29/15 [History] Albuterol/Ipratropium [DuoNeb 3.0-0.5 MG/3 ML] 3 ml INH Q4H PRN 11/19/17 [ History] Potassium Chloride 2 cap PO BID 11/19/17 [History] Warfarin [Coumadin] 1.25 tab PO DAILY@1300 11/19/17 [History] Bumetanide [Bumex] 3 mg PO DAILY 11/24/17 [History] Magnesium Oxide [Magnesium] 400 mg PO DAILY 03/04/18 [History] Mometasone/Formoterol [Dulera 200 MCG/5 MCG] 2 puff INH BID 03/04/18 [History] Montelukast [Singulair] 10 mg PO DAILY 03/04/18 [History] Metoclopramide HCl [Reglan] 5 mg PO QIDACANDBED #0 03/08/18 [Rx] Levothyroxine Sodium [Synthroid] 125 mcg PO 10/21/18 [History] Losartan [Cozaar] 25 mg PO DAILY #30 tab 10/23/18 [Rx] Metoprolol Succinate 25 mg PO DAILY #30 tab.er.24h 10/23/18 [Rx] Referrals: Sundeep Gleason MD [Primary Care Provider] - 10/26/18 3:30 pm (Labs, coumadin clinic @ 330pm, Dr Gleason @ 4pm At [facility]) - Discharge Summary/Plan Comment DC Time >30 min.: No - Patient Data Vitals - Most Recent: Last Vital Signs Temp 97 F 10/23/18 07:44 Pulse 62 10/23/18 08:42 Resp 18 10/23/18 07:44 BP 131/44 L 10/23/18 08:44 Pulse Ox 96 10/23/18 09:32 Orthostatic Blood Pressure [ 108/53 Standing] Orthostatic Blood Pressure [ 115/42 Sitting] Orthostatic Blood Pressure [ 115/18 Supine] Weight - Most Recent: 180 lb 12.8 oz I&O - Last 24 hours: Intake & Output 10/22/18 10/23/18 10/23/18 22:59 06:59 14:59 Intake Total 790 200 240 Output Total 1050 700 Balance -260 -500 240 Lab Results - Last 24 hrs: Laboratory Results - last 24 hr 10/23/18 10/23/18 Range/Units 04:47 04:47 PT 13.9 H (9.5-12.0) sec INR 1.31 H (0.80-1.20) Sodium 146 (140-148) mmol/L Potassium 4.5 (3.6-5.2) mmol/L Chloride 114 H (100-108) mmol/L Carbon Dioxide 25 (21-32) mmol/L Anion Gap 11.5 (5.0-14.0) mmol/L BUN 39 H (7-18) mg/dL Creatinine 1.9 H (0.6-1.0) mg/dL Est Cr Clr Drug Dosing 16.11 mL/min Estimated GFR (MDRD) 25 L (>60) Glucose 88 (74-106) mg/dL Calcium 8.6 (8.5-10.1) mg/dL SCAR Results - Last 24 hrs: Microbiology 10/21/18 15:51 Urine Culture - Preliminary Urine, Clean Catch MIXED POSITIVE CIELO DAY 1 Med Orders - Current: Current Medications Acetaminophen (Tylenol) 650 mg PO Q4H PRN PRN Reason: Pain (Mild 1-3)/fever Albuterol/Ipratropium (Duoneb 3.0-0.5 Mg/3 Ml) 3 ml INH Q4H PRN PRN Reason: Shortness of Breath Aspirin (Halfprin) 81 mg PO DAILY [facility] Last Admin: 10/23/18 08:46 Dose: 81 mg Bumetanide (Bumex) 3 mg PO DAILY [facility] Last Admin: 10/23/18 08:42 Dose: 3 mg Lactobacillus Rhamnosus (Culturelle) 1 cap PO BID [facility] Last Admin: 10/23/18 08:06 Dose: 1 cap Losartan Potassium (Cozaar) 25 mg PO DAILY [facility] Last Admin: 10/23/18 08:44 Dose: 25 mg Magnesium Oxide (Magnesium Oxide) 400 mg PO DAILY [facility] Last Admin: 10/23/18 08:40 Dose: 400 mg Metoclopramide HCl (Reglan) 5 mg PO QIDACANDBED [facility] Last Admin: 10/23/18 08:37 Dose: 5 mg Metoprolol Succinate (Toprol Xl) 25 mg PO DAILY [facility] Last Admin: 10/23/18 08:42 Dose: 25 mg Montelukast Sodium (Singulair) 10 mg PO DAILY [facility] Last Admin: 10/23/18 08:39 Dose: 10 mg Dulera 200-5mcg Aero (InhPom) 0 each INH BIDRT [facility] Last Admin: 10/23/18 07:15 Dose: 2 each Omeprazole 20 Mg Cap (Pom) 0 mg PO BIDAC [facility] Last Admin: 10/23/18 08:41 Dose: Not Given Spiriva Inhaler (18mcg/CapPom) 0 each INH DAILY [facility] Last Admin: 10/22/18 08:18 Dose: 1 each Levothyroxine 125mcg (TabPom) 0 each PO ACBREAKFAST [facility] Last Admin: 10/23/18 08:40 Dose: 1 each Ondansetron HCl (Zofran) 4 mg IV Q4H PRN PRN Reason: Nausea/Vomiting Polyethylene Glycol (Miralax) 17 gm PO DAILY PRN PRN Reason: Constipation Potassium Chloride (Potassium Chloride) 20 meq PO BID [facility] Last Admin: 10/23/18 08:39 Dose: 20 meq Simvastatin (Zocor) 20 mg PO BEDTIME [facility] Last Admin: 10/22/18 20:36 Dose: 20 mg Sodium Chloride (Saline Flush) 10 ml FLUSH ASDIRECTED PRN PRN Reason: Keep Vein Open Tramadol HCl (Ultram) 50 mg PO Q12H PRN PRN Reason: Pain (severe 7-10) Last Admin: 10/22/18 22:04 Dose: 50 mg Warfarin Sodium (Coumadin) 1.25 mg PO DAILY@1300 [facility] Last Admin: 10/22/18 14:20 Dose: 1.25 mg Discontinued Medications Bumetanide (Bumex) 3 mg PO DAILY [facility] Last Admin: 10/22/18 08:16 Dose: 3 mg Ceftriaxone Sodium 1 gm/ (Sodium Chloride) 50 mls @ 100 mls/hr IV Q24H [facility] Last Admin: 10/22/18 16:45 Dose: 100 mls/hr Sodium Chloride (Normal Saline) 1,000 mls @ 250 mls/hr IV ASDIRECTED [facility] Stop: 10/21/18 20:01 Last Admin: 10/21/18 20:32 Dose: 250 mls/hr Sodium Chloride (Normal Saline) 1,000 mls @ 75 mls/hr IV ASDIRECTED [facility] Last Admin: 10/22/18 07:23 Dose: 75 mls/hr Phytonadione 1 mg/ Sodium (Chloride) 50.5 mls @ 100 mls/hr IV ONETIME ONE Stop: 10/21/18 18:00 Last Admin: 10/21/18 18:08 Dose: 100 mls/hr Magnesium Sulfate 2 gm/ Premix 50 mls @ 25 mls/hr IV ONETIME ONE Stop: 10/21/18 19:59 Last Admin: 10/21/18 19:08 Dose: 25 mls/hr Levothyroxine Sodium (Synthroid) 100 mcg PO ACBREAKFAST [facility] Last Admin: 10/22/18 07:26 Dose: 100 mcg Losartan Potassium (Cozaar) 50 mg PO DAILY [facility] Last Admin: 10/22/18 08:15 Dose: 50 mg Metoprolol Succinate (Toprol Xl) 50 mg PO DAILY [facility] Last Admin: 10/22/18 08:15 Dose: 50 mg Warfarin Sodium (Coumadin) 3.125 mg PO DAILY@1300 [facility] - Exam Quality Assessment: Reports: DVT Prophylaxis General: Reports: Alert, Oriented, Cooperative, No Acute Distress Lungs: Reports: Clear to Auscultation, Normal Respiratory Effort Cardiovascular: Reports: Regular Rate, Regular Rhythm, No Murmurs GI/Abdominal Exam: Soft, Non-Tender, No Organomegaly, No Distention Extremities: Non-Tender, No Pedal Edema *Q Meaningful Use (DIS) - VTE *Q VTE Pharmacological Contraindications *Q: High INR Value
== END 2018-10-23 11:21 | disposition home or self-care (01) ==
LOC: JP.MS 14:29
PROVIDERS: ADMIT Hospitalist; ATTEND Hospitalist
DX: I95.9 Hypotension, unspecified (principal); N17.9 Acute kidney failure, unspecified; N39.0 Urinary tract infection, site not specified; I13.0 Hypertensive heart and chronic kidney disease with heart failure and stage 1 through stage 4 chronic kidney disease, or unspecified chronic kidney disease; N18.3 Chronic kidney disease, stage 3 (moderate); I50.9 Heart failure, unspecified; I25.10 Atherosclerotic heart disease of native coronary artery without angina pectoris; E05.80 Other thyrotoxicosis without thyrotoxic crisis or storm; E78.00 Pure hypercholesterolemia, unspecified; J44.9 Chronic obstructive pulmonary disease, unspecified; G47.30 Sleep apnea, unspecified; Z88.5 Allergy status to narcotic agent; Z88.8 Allergy status to other drugs, medicaments and biological substances; Z88.0 Allergy status to penicillin; Z88.2 Allergy status to sulfonamides; Z91.048 Other nonmedicinal substance allergy status; Z99.89 Dependence on other enabling machines and devices; Z66 Do not resuscitate; Z95.810 Presence of automatic (implantable) cardiac defibrillator; Z95.5 Presence of coronary angioplasty implant and graft; Z87.891 Personal history of nicotine dependence; Z79.01 Long term (current) use of anticoagulants; Z79.82 Long term (current) use of aspirin; Z79.899 Other long term (current) drug therapy
CPT/HCPCS: 36415; 80048; 80053; 83735; 84443; 85025; 85610; 87086; 94640; 96361; 96365; 96366; 96367; 97162; 97530; A9270; G0378; J0696; J3430; J3475; J7030; J7050; 99217; 99219; 99224

== ENCOUNTER 2019-08-06 06:39 | Day surgery (SDC) | payer MEDICARE ==
[2019-08-06] MEDS ORDERED: Lidocaine 1% with EPINEPHrine 1:100,000 50 ML MDV ONE (06:44)
[2019-08-06] MEDS ORDERED: Bupivacaine 0.5% 50 ML MDV ONE (06:44)
[2019-08-06] MEDS ORDERED: Lidocaine 1% 50 ML MDV ONE (06:44)
[2019-08-06] MEDS ORDERED: Bacitracin Oint 1 GM U/D Packet ONE (06:45)
[2019-08-06] MEDS ORDERED: Propofol 200 MG/20 ML SDV ONE (07:10)
[2019-08-06] MEDS ORDERED: fentaNYL 100 MCG/2 ML SDV ONE (07:11)
[2019-08-06] MEDS ORDERED: Midazolam 1 MG/ML 2 ML SDV ONE (07:11)
[2019-08-06] MEDS ORDERED: Sodium Chloride 0.9% 1,000 ML IV SCH (07:45)
[2019-08-06] MEDS ORDERED: ceFAZolin 1 GM Vial ONE (08:05)
[2019-08-06 09:59] VITALS: BP 139/79; PULSE 119
--- NOTE | 2019-08-06 16:25 | OR ---
DATE OF PROCEDURE: 08/06/2019 SURGEON: Zeeshan Galvez MD PROCEDURES: 1. Excision of right foot nonhealing lesion, etiology unknown, 3.1 cm, (78624). 2. Simple O to Z rotational type flap, right foot, (17383). COMPLICATIONS: None. ASSISTANTS: None. PREOPERATIVE DIAGNOSIS: Nonhealing wound, right foot, enlarging; concerning for malignancy or other etiology. POSTOPERATIVE DIAGNOSIS: Nonhealing wound, right foot, enlarging; concerning for malignancy or other etiology. RISKS: Risks, benefits, alternatives, and limitations including, but not limited to infection, bleeding, and chronic wound, along with nonhealing wound requiring significant repair were explained to the patient, and they wished to proceed. PROCEDURE IN DETAIL: The patient was placed in supine position. The right foot was anesthetized with 1% lidocaine with epinephrine mixed with Marcaine. A circular incision was used to excise the lesion, followed up with plasma blade. This would be sent to pathology. An O to Z-type rotational flap was then used to decrease the total area. The plasma blade was used to create the actual formation. The wound was then closed in a layered structure of 2-0 nylon sutures. Dressings were applied. The patient tolerated the procedure well. Zeeshan Galvez MD /[id number]
== END 2019-08-06 10:26 | disposition home or self-care (01) ==
LOC: JP.SDS 06:39
PROVIDERS: ATTEND Surgery
DX: D21.21 Benign neoplasm of connective and other soft tissue of right lower limb, including hip (principal); J44.9 Chronic obstructive pulmonary disease, unspecified; I11.0 Hypertensive heart disease with heart failure; I50.9 Heart failure, unspecified; Z88.8 Allergy status to other drugs, medicaments and biological substances
CPT/HCPCS: 11424; 15574; 88305; J2250; J2704; J3010; J3490; J7030; J0690; J2001

== ENCOUNTER 2019-08-18 05:45 | Inpatient (IN) | payer MEDICARE ==
--- NOTE | 2019-08-18 06:22 | EDM.PDOC ---
ED HPI GENERAL MEDICAL PROBLEM - General Chief Complaint: Respiratory Problem Stated Complaint: MEDICAL [facility] Time Seen by Provider: 08/18/19 06:18 Source of Information: Reports: Patient History Limitations: Reports: No Limitations - History of Present Illness INITIAL COMMENTS - FREE TEXT/NARRATIVE: pt arrived with a history of being alot more sob . She was on her cpap at home which she uses each nite. She was maintining good oxgenation when ENS arrived. She has swollen ankles but not alot more than usual. Onset: Gradual, Other ( started yesterday. ) Duration: Hour(s): Location: Reports: Chest Associated Symptoms: Reports: Cough, Shortness of Breath Treatments [employer]: Reports: Aspirin, EKG, Nitroglycerin, Oxygen Other Treatments [employer]: 324 mg asa # 3 NTG Chest Pain Score (Numeric/FACES): 5 - Related Data Allergies Allergy/AdvReac Type Severity Reaction Status Date / Time adhesive tape Allergy Other Verified 08/18/19 06:05 codeine Allergy Hives Verified 08/18/19 06:05 doxepin [Doxepin] Allergy Hives Verified 08/18/19 06:05 etodolac [From Lodine] Allergy Cannot Verified 08/18/19 06:05 Remember fosinopril sodium Allergy Hives Verified 08/18/19 06:05 [From Monopril] heparin Allergy Cannot Verified 08/18/19 06:05 Remember methylprednisolone Allergy Cannot Verified 08/18/19 06:05 [From Medrol] Remember pantoprazole [From Protonix] Allergy Cannot Verified 08/18/19 06:05 Remember Penicillins Allergy Hives Verified 08/18/19 06:05 procaine HCl [From Novocain] Allergy Hives Verified 08/18/19 06:05 Sulfa (Sulfonamide Allergy Hives Verified 08/18/19 06:05 Antibiotics) amitriptyline HCl AdvReac Hallucinati Verified 08/18/19 06:05 [From Elavil] ons amlodipine besylate AdvReac Blisters Verified 08/18/19 06:05 [From Norvasc] cephalexin [From Keflex] AdvReac Nausea Verified 08/18/19 06:05 nortriptyline AdvReac Hallucinati Verified 08/18/19 06:05 ons quinapril HCl [From Accupril] AdvReac Hallucinati Verified 08/18/19 06:05 ons Home Meds: Home Meds Simvastatin 20 mg PO BEDTIME 03/15/13 [History] Tiotropium [Spiriva Handihaler] 18 mcg INH DAILY 03/15/13 [History] traMADol [Ultram] 50 mg PO Q12H PRN 03/15/13 [History] Omeprazole 20 mg PO ACBREAKFAST 06/17/13 [History] Aspirin [Adult Low Dose Aspirin EC] 81 mg PO DAILY 08/17/13 [History] Nystatin/Triamcinolone Crm [Mycolog Crm] 1 applic TOP BID 08/17/13 [History] Nitroglycerin 0.4 mg SL ASDIRECTED PRN 11/29/15 [History] Albuterol/Ipratropium [DuoNeb 3.0-0.5 MG/3 ML] 3 ml INH Q4H PRN 11/19/17 [ History] Potassium Chloride 2 cap PO BID 11/19/17 [History] Warfarin [Coumadin] 2.5 mg PO ASDIRECTED 11/19/17 [History] Bumetanide [Bumex] 1 mg PO DAILY 11/24/17 [History] Montelukast [Singulair] 10 mg PO BEDTIME 03/04/18 [History] Levothyroxine Sodium [Synthroid] 100 mcg PO DAILY 10/21/18 [History] Metoprolol Succinate 25 mg PO DAILY #30 tab.er.24h 10/23/18 [Rx] Albuterol [Proventil Neb Soln] 3 ml NEB Q4H PRN 08/04/19 [History] Cyanocobalamin (Vitamin B-12) [Vitamin B-12] 1,000 mcg SL DAILY 08/04/19 [ History] Fluticasone/Salmeterol [Advair 500-50] 1 puff INH BID 08/04/19 [History] Hydroxychloroquine Sulfate [Plaquenil] 200 mg PO DAILY 08/04/19 [History] Magnesium Citrate 125 mg PO TID 08/04/19 [History] Menthol/Methyl Salicylate [Thera-Gesic Analgesic Cream] 1 applic TP ASDIRECTED PRN 08/04/19 [History] Multivitamin-Min/Iron/FA/Vit K [Multi-Day Plus Minerals Tablet] 1 each PO DAILY 08/04/19 [History] Umeclidinium Brm/Vilanterol Tr [Anoro Ellipta 62.5-25 MCG] 1 puff IH DAILY 08/03 [History] Past Medical History HEENT History: Reports: Cataract, Hard of Hearing, Impaired Vision Cardiovascular History: Reports: Afib, High Cholesterol, Hypertension, Pacemaker Other Cardiovascular History: defibriblilation Respiratory History: Reports: COPD, Sleep Apnea, SOB, Other (See Below) Other Respiratory History: Cpap and home O2 2L prn Gastrointestinal History: Reports: Bowel Obstruction, GERD, Hiatal Hernia Genitourinary History: Reports: Urinary Incontinence, UTI, Recurrent AGENT PRODUCER History: Reports: , Other (See Below) Other AGENT PRODUCER History: hemorrhaging Musculoskeletal History: Reports: Back Pain, Chronic, RA Other Musculoskeletal History: Torn rotator cuff Neurological History: Reports: CVA, Migraines Endocrine/Metabolic History: Reports: Hypothyroidism, Obesity/BMI 30+ Hematologic History: Reports: Anemia, Blood Transfusion(s) - Infectious Disease History Infectious Disease History: Reports: Chicken Pox, Measles, Mumps, Shingles - Past Surgical History Head Surgeries/Procedures: Reports: None HEENT Surgical History: Reports: Cataract Surgery Cardiovascular Surgical History: Reports: Coronary Artery Stent Respiratory Surgical History: Reports: None GI Surgical History: Reports: Appendectomy, Cholecystectomy, Hernia Repair/Other , Small Bowel Other GI Surgeries/Procedures: removal of mesh 2016 Female Surgical History: Reports: D&C, Hysterectomy, Salpingo-Oophorectomy Neurological Surgical History: Reports: C-Spine, Other (See Below) Musculoskeletal Surgical History: Reports: Knee Replacement, Other (See Below) Other Musculoskeletal Surgeries/Procedures:: L knee replaced Social & Family History - Family History Family Medical History: Noncontributory HEENT: Reports: Cataract Cardiac: Reports: Hypertension Respiratory: Reports: Asthma, COPD Other Respiratory Family Hisory: emphysema GI: Reports: Cholelithiasis, Colon Polyps OBGYN: Reports: Musculoskeletal: Reports: Arthritis Psychiatric: Reports: Anxiety, Depression Endocrine/Metabolic: Reports: Hypothyroidism Oncologic: Reports: Skin - Caffeine Use Caffeine Use: Reports: Tea ED ROS GENERAL - Review of Systems Review Of Systems: See Below Constitutional: Reports: No Symptoms HEENT: Reports: No Symptoms Respiratory: Reports: Shortness of Breath Cardiovascular: Reports: No Symptoms Endocrine: Reports: No Symptoms GI/Abdominal: Reports: No Symptoms : Reports: No Symptoms Musculoskeletal: Reports: No Symptoms Skin: Reports: No Symptoms Neurological: Reports: No Symptoms ED EXAM, GENERAL - Physical Exam Exam: See Below Free Text/Narrative:: pt arrived with incresed sob. She did have some chest tightness. Exam Limited By: No Limitations General Appearance: Alert, Anxious, Moderate Distress Ears: Normal TMs Nose: Normal Inspection Throat/Mouth: Normal Inspection Head: Atraumatic Neck: Normal Inspection Respiratory/Chest: Decreased Breath Sounds, Crackles Cardiovascular: Regular Rate, Rhythm, Other (pt had some chest tightness) GI/Abdominal: Soft, Non-Tender (Female) Exam: Deferred Rectal (Female) Exam: Deferred Back Exam: Normal Inspection Extremities: Pedal Edema Neurological: Alert, Oriented, Normal Cognition Psychiatric: Anxious Course - Vital Signs Last Recorded V/S: Last Vital Signs Temp 36.3 C 08/18/19 05:48 Pulse 133 H 08/18/19 06:47 Resp 30 H 08/18/19 06:47 BP 167/112 H 08/18/19 06:47 Pulse Ox 98 08/18/19 06:47 - Orders/Labs/Meds Orders: Active Orders 24 hr Category Date Time Status EKG Documentation Completion [RC] ASDIRECTED Care 08/18/19 05:53 Active Chest 1V Frontal [CR] Stat Exams 08/18/19 05:47 Taken CULTURE URINE [RM] Stat Lab 08/18/19 06:00 Received Diltiazem [Cardizem] 100 mg Med 08/18/19 06:45 Active Sodium Chloride 0.9% [Normal Saline] 100 ml IV TITRATE EKG 12 Lead [EK] Routine Ther 08/18/19 05:53 Ordered Medication Orders Diltiazem HCl 100 mg/ Sodium (Chloride) 100 mls @ 5 mls/hr IV TITRATE PAUL; Protocol Labs: Laboratory Tests 08/18/19 08/18/19 08/18/19 Range/Units 05:47 05:55 05:55 WBC 11.0 (4.5-11.0) K/uL RBC 3.57 (3.30-5.50) M/uL Hgb 9.3 L (12.0-15.0) g/dL Hct 32.0 L (36.0-48.0) % MCV 90 (80-98) fL MCH 26 L (27-31) pg MCHC 29 L (32-36) % Plt Count 274 (150-400) K/uL Neut % (Auto) 68 H (36-66) % Lymph % (Auto) 21 L (24-44) % [place] % (Auto) 11 H (2-6) % Eos % (Auto) 1 L (2-4) % Baso % (Auto) 1 (0-1) % PT (9.5-12.0) sec INR (0.80-1.20) Puncture Site Rt radial ABG pH 7.419 (7.350-7.450) ABG pCO2 25.7 L (35.0-42.0) mmHg ABG pO2 121.0 H (75.0-100.0) mmHg ABG HCO3 16.3 L (22.0-26.0) mmol/L ABG Total CO2 15.2 L (21.0-25.0) mmol/L ABG O2 Saturation 98.6 H (95.0-98.0) % ABG O2 Content 13.1 L (15.0-23.0) %vol ABG Base Excess -6.7 mm/L ABG Hemoglobin 9.5 L (12.0-16.0) g/dL ABG Oxyhemoglobin 96.2 % ABG Carboxyhemoglobin 1.5 (0.0-1.6) % ABG Methemoglobin 0.9 % Zia Test Passed O2 Delivery Device Nasal cannula Oxygen Flow Rate 2.0 L Sodium 141 (140-148) mmol/L Potassium 5.7 H (3.6-5.2) mmol/L Chloride 109 H (100-108) mmol/L Carbon Dioxide 20 L (21-32) mmol/L Anion Gap 17.7 H (5.0-14.0) mmol/L BUN 28 H (7-18) mg/dL Creatinine 3.0 H D (0.6-1.0) mg/dL Est Cr Clr Drug Dosing 10.03 mL/min Estimated GFR (MDRD) 15 L (>60) Glucose 84 (74-106) mg/dL Calcium 8.3 L (8.5-10.1) mg/dL Total Bilirubin 0.7 (0.2-1.0) mg/dL AST 38 H D (15-37) U/L ALT 30 D (12-78) U/L Alkaline Phosphatase 81 (46-116) U/L Troponin I (0.000-0.056) ng/mL NT-Pro-B Natriuret Pep (5-450) pg/mL Total Protein 6.1 L (6.4-8.2) g/dL Albumin 3.0 L (3.4-5.0) g/dL Globulin 3.1 (2.3-3.5) g/dL Albumin/Globulin Ratio 1.0 L (1.2-2.2) TSH, Ultra Sensitive (0.358-3.740) uIU/mL Urine Color (YELLOW) Urine Appearance (CLEAR) Urine pH (5.0-8.0) Ur Specific [place] (1.008-1.030) Urine Protein (NEGATIVE) mg/dL Urine Glucose (UA) (NEGATIVE) mg/dL Urine Ketones (NEGATIVE) mg/dL Urine Occult Blood (NEGATIVE) Urine Nitrite (NEGATIVE) Urine Bilirubin (NEGATIVE) Urine Urobilinogen (0.2-1.0) EU/dL Ur Leukocyte Esterase (NEGATIVE) Urine RBC (0-5) Urine WBC (0-5) Ur Epithelial Cells Amorphous Sediment Urine Bacteria Urine Mucus Urine Other 08/18/19 08/18/19 08/18/19 Range/Units 05:55 05:57 05:57 WBC (4.5-11.0) K/uL RBC (3.30-5.50) M/uL Hgb (12.0-15.0) g/dL Hct (36.0-48.0) % MCV (80-98) fL MCH (27-31) pg MCHC (32-36) % Plt Count (150-400) K/uL Neut % (Auto) (36-66) % Lymph % (Auto) (24-44) % [place] % (Auto) (2-6) % Eos % (Auto) (2-4) % Baso % (Auto) (0-1) % PT 22.7 H (9.5-12.0) sec INR 2.20 H (0.80-1.20) Puncture Site ABG pH (7.350-7.450) ABG pCO2 (35.0-42.0) mmHg ABG pO2 (75.0-100.0) mmHg ABG HCO3 (22.0-26.0) mmol/L ABG Total CO2 (21.0-25.0) mmol/L ABG O2 Saturation (95.0-98.0) % ABG O2 Content (15.0-23.0) %vol ABG Base Excess mm/L ABG Hemoglobin (12.0-16.0) g/dL ABG Oxyhemoglobin % ABG Carboxyhemoglobin (0.0-1.6) % ABG Methemoglobin % Zia Test O2 Delivery Device Oxygen Flow Rate L Sodium (140-148) mmol/L Potassium (3.6-5.2) mmol/L Chloride (100-108) mmol/L Carbon Dioxide (21-32) mmol/L Anion Gap (5.0-14.0) mmol/L BUN (7-18) mg/dL Creatinine (0.6-1.0) mg/dL Est Cr Clr Drug Dosing mL/min Estimated GFR (MDRD) (>60) Glucose (74-106) mg/dL Calcium (8.5-10.1) mg/dL Total Bilirubin (0.2-1.0) mg/dL AST (15-37) U/L ALT (12-78) U/L Alkaline Phosphatase (46-116) U/L Troponin I 0.035 (0.000-0.056) ng/mL NT-Pro-B Natriuret Pep 41753 H (5-450) pg/mL Total Protein (6.4-8.2) g/dL Albumin (3.4-5.0) g/dL Globulin (2.3-3.5) g/dL Albumin/Globulin Ratio (1.2-2.2) TSH, Ultra Sensitive 0.318 L (0.358-3.740) uIU/mL Urine Color (YELLOW) Urine Appearance (CLEAR) Urine pH (5.0-8.0) Ur Specific [place] (1.008-1.030) Urine Protein (NEGATIVE) mg/dL Urine Glucose (UA) (NEGATIVE) mg/dL Urine Ketones (NEGATIVE) mg/dL Urine Occult Blood (NEGATIVE) Urine Nitrite (NEGATIVE) Urine Bilirubin (NEGATIVE) Urine Urobilinogen (0.2-1.0) EU/dL Ur Leukocyte Esterase (NEGATIVE) Urine RBC (0-5) Urine WBC (0-5) Ur Epithelial Cells Amorphous Sediment Urine Bacteria Urine Mucus Urine Other 08/18/19 Range/Units 06:07 WBC (4.5-11.0) K/uL RBC (3.30-5.50) M/uL Hgb (12.0-15.0) g/dL Hct (36.0-48.0) % MCV (80-98) fL MCH (27-31) pg MCHC (32-36) % Plt Count (150-400) K/uL Neut % (Auto) (36-66) % Lymph % (Auto) (24-44) % [place] % (Auto) (2-6) % Eos % (Auto) (2-4) % Baso % (Auto) (0-1) % PT (9.5-12.0) sec INR (0.80-1.20) Puncture Site ABG pH (7.350-7.450) ABG pCO2 (35.0-42.0) mmHg ABG pO2 (75.0-100.0) mmHg ABG HCO3 (22.0-26.0) mmol/L ABG Total CO2 (21.0-25.0) mmol/L ABG O2 Saturation (95.0-98.0) % ABG O2 Content (15.0-23.0) %vol ABG Base Excess mm/L ABG Hemoglobin (12.0-16.0) g/dL ABG Oxyhemoglobin % ABG Carboxyhemoglobin (0.0-1.6) % ABG Methemoglobin % Zia Test O2 Delivery Device Oxygen Flow Rate L Sodium (140-148) mmol/L Potassium (3.6-5.2) mmol/L Chloride (100-108) mmol/L Carbon Dioxide (21-32) mmol/L Anion Gap (5.0-14.0) mmol/L BUN (7-18) mg/dL Creatinine (0.6-1.0) mg/dL Est Cr Clr Drug Dosing mL/min Estimated GFR (MDRD) (>60) Glucose (74-106) mg/dL Calcium (8.5-10.1) mg/dL Total Bilirubin (0.2-1.0) mg/dL AST (15-37) U/L ALT (12-78) U/L Alkaline Phosphatase (46-116) U/L Troponin I (0.000-0.056) ng/mL NT-Pro-B Natriuret Pep (5-450) pg/mL Total Protein (6.4-8.2) g/dL Albumin (3.4-5.0) g/dL Globulin (2.3-3.5) g/dL Albumin/Globulin Ratio (1.2-2.2) TSH, Ultra Sensitive (0.358-3.740) uIU/mL Urine Color Yellow (YELLOW) Urine Appearance Cloudy A (CLEAR) Urine pH 5.5 (5.0-8.0) Ur Specific [place] 1.025 (1.008-1.030) Urine Protein 100 H (NEGATIVE) mg/dL Urine Glucose (UA) Negative (NEGATIVE) mg/dL Urine Ketones Negative (NEGATIVE) mg/dL Urine Occult Blood Large H (NEGATIVE) Urine Nitrite Negative (NEGATIVE) Urine Bilirubin Negative (NEGATIVE) Urine Urobilinogen 0.2 (0.2-1.0) EU/dL Ur Leukocyte Esterase Small H (NEGATIVE) Urine RBC 20-30 H (0-5) Urine WBC 20-30 H (0-5) Ur Epithelial Cells Few Amorphous Sediment Not seen Urine Bacteria Many Urine Mucus Not seen Urine Other Meds: Medications Generic Name Dose Route Start Last Admin Trade Name Freq PRN Reason Stop Dose Admin Diltiazem HCl 100 mg/ Sodium 100 mls @ 5 mls/hr 08/18/19 06:45 Chloride IV TITRATE PAUL Protocol 5 MG/HR Discontinued Medications Generic Name Dose Route Start Last Admin Trade Name Freq PRN Reason Stop Dose Admin Diltiazem HCl 10 mg 08/18/19 06:40 Diltiazem IVPUSH 08/18/19 06:41 ONETIME ONE Furosemide 60 mg 08/18/19 06:33 Lasix IVPUSH 08/18/19 06:34 ONETIME ONE - Re-Assessments/Exams Free Text/Narrative Re-Assessment/Exam: 08/18/19 06:52 pt has a normal inr. She has a trop within normal limits. Her ekg shows atrial fib with a rate of 140. She was given 4 baby asa in the ambulance and she did get nitro in the ambulance. Her chest xray shows cardiomegoly and fluid overload. Pt has a urine infection that she is aware of. her urine tonight does look infected. A culture was set up. 08/18/19 06:55 Departure - Departure Time of Disposition: 06:57 Disposition: Admitted As Inpatient 66 Condition: Fair Clinical Impression: COPD (chronic obstructive pulmonary disease), CHF (congestive heart failure) UTI (urinary tract infection) Qualifiers: Urinary tract infection type: acute cystitis Hematuria presence: with hematuria Qualified Code(s): N30.01 - Acute cystitis with hematuria Referrals: PCP,None [Primary Care Provider] - Forms: ED Department Discharge Care Plan Goals: admit to Dr [place] Sepsis Event Note - Evaluation Sepsis Screening Result: Possible Sepsis Risk - Focused Exam Vital Signs: Vital Signs Temp Pulse Resp BP Pulse Ox 08/18/19 06:47 133 H 30 H 167/112 H 98 08/18/19 05:48 36.3 C 138 H 32 H 165/111 H 2 L Date Exam was Performed: 08/18/19 Time Exam was Performed: 06:52 - My Orders Last 24 Hours: My Active Orders 08/18/19 05:47 Chest 1V Frontal [CR] Stat 08/18/19 05:53 EKG Documentation Completion [RC] ASDIRECTED EKG 12 Lead [EK] Routine 08/18/19 06:00 CULTURE URINE [RM] Stat 08/18/19 06:45 Diltiazem [Cardizem] 100 mg Sodium Chloride 0.9% [Normal Saline] 100 ml IV TITRATE - Assessment/Plan Last 24 Hours: My Active Orders 08/18/19 05:47 Chest 1V Frontal [CR] Stat 08/18/19 05:53 EKG Documentation Completion [RC] ASDIRECTED EKG 12 Lead [EK] Routine 08/18/19 06:00 CULTURE URINE [RM] Stat 08/18/19 06:45 Diltiazem [Cardizem] 100 mg Sodium Chloride 0.9% [Normal Saline] 100 ml IV TITRATE
[2019-08-18] MEDS ORDERED: Furosemide 40 MG/4 ML VIAL IVPUSH ONE (06:33)
[2019-08-18] MEDS ORDERED: Diltiazem 25 MG/5 ML SDV IVPUSH ONE (06:40)
[2019-08-18] MEDS ORDERED: Diltiazem 100 MG in Sodium Chloride 0.9% 100 ML IV SCH (06:45)
--- NOTE | 2019-08-18 07:04 | CRLCR ---
INDICATION: Dyspnea COMPARISON: May 29, 2017 TECHNIQUE: Single-view portable AP upright chest radiograph FINDINGS: TUBES AND LINES: Left-sided pace with leads ending in the expected location of the right atrium and the right ventricle. HEART AND MEDIASTINUM: Heart is enlarged but appears unchanged. LUNGS AND PLEURAL SPACES: The lungs appear normal.There pleural spaces are unremarkable. OSSEOUS STRUCTURES: Age-appropriate appearance. No acute focal finding. IMPRESSION: Enlarged heart unchanged. Pacer unchanged in position. No acute lung findings. Dictated by John Leon MD @ Aug 18 2019 6:56AM Signed by Dr. John Leon @ Aug 18 2019 7:03AM
[2019-08-18] MEDS ORDERED: cefTRIAXone 1 GM in Sodium Chloride 0.9% 50 ML IV SCH (07:30)
[2019-08-18] MEDS ORDERED: Furosemide 100 MG/10 ML SDV IVPUSH ONE (07:30)
[2019-08-18] MEDS: cefTRIAXone 1 GM in Sodium Chloride 0.9% 50 ML IV SCH (08:25)
--- NOTE | 2019-08-18 09:07 | PCM.HP.2 ---
H&P History of Present Illness - General Date of Service: 08/18/19 Admit Problem/Dx: Admission Diagnosis/Problem Admission Diagnosis/Problem CHF, Congestive heart failure Source of Information: Patient, Provider History Limitations: Reports: No Limitations - History of Present Illness Initial Comments - Free Text/Narative: CC: I couldn't breath HPI: Veronika presents to the emergency room with progressive shortness of breath and weakness. Symptoms started about 1 week ago and have steadily progressed. She is now short of breath with any activity. She is now so weak that she could not get out of bed. She has a very mild intermittent and dry cough but has not produced any sputum. She has not had any fevers or chills. She did notice some palpitations last night and today. She feels tight in the chest but does not endorse any chest pain. She has noticed that her urine has been cloudy lately but has not had any dysuria or increased urinary frequency. No complaints of abdominal pain or nausea. She does report orthopnea which is worse than baseline. She has not noticed a significant increase in her lower extremity edema. She has not traveled and has not had any sick contacts. Work-up in the emergency room revealed acute on chronic kidney disease as well as hyperkalemia, atrial fibrillation with a rapid ventricular response and concern for congestive heart failure. Also noted was a urinary tract infection. She has received furosemide and will be started on antibiotics. A diltiazem drip has been started. She will be admitted for further management. Chest Pain Score (Numeric/FACES): 6 - Related Data Allergies/Adverse Reactions: Allergies Allergy/AdvReac Type Severity Reaction Status Date / Time adhesive tape Allergy Other Verified 08/18/19 06:05 codeine Allergy Hives Verified 08/18/19 06:05 doxepin [Doxepin] Allergy Hives Verified 08/18/19 06:05 etodolac [From Lodine] Allergy Cannot Verified 08/18/19 06:05 Remember fosinopril sodium Allergy Hives Verified 08/18/19 06:05 [From Monopril] heparin Allergy Cannot Verified 08/18/19 06:05 Remember methylprednisolone Allergy Cannot Verified 08/18/19 06:05 [From Medrol] Remember pantoprazole [From Protonix] Allergy Cannot Verified 08/18/19 06:05 Remember Penicillins Allergy Hives Verified 08/18/19 06:05 procaine HCl [From Novocain] Allergy Hives Verified 08/18/19 06:05 Sulfa (Sulfonamide Allergy Hives Verified 08/18/19 06:05 Antibiotics) amitriptyline HCl AdvReac Hallucinati Verified 08/18/19 06:05 [From Elavil] ons amlodipine besylate AdvReac Blisters Verified 08/18/19 06:05 [From Norvasc] cephalexin [From Keflex] AdvReac Nausea Verified 08/18/19 06:05 nortriptyline AdvReac Hallucinati Verified 08/18/19 06:05 ons quinapril HCl [From Accupril] AdvReac Hallucinati Verified 08/18/19 06:05 ons Home Medications: Home Meds Simvastatin 20 mg PO BEDTIME 03/15/13 [History] traMADol [Ultram] 50 mg PO Q12H PRN 03/15/13 [History] Omeprazole 20 mg PO ACBREAKFAST 06/17/13 [History] Aspirin [Adult Low Dose Aspirin EC] 81 mg PO DAILY 08/17/13 [History] Nystatin/Triamcinolone Crm [Mycolog Crm] 1 applic TOP BID 08/17/13 [History] Nitroglycerin 0.4 mg SL ASDIRECTED PRN 11/29/15 [History] Albuterol/Ipratropium [DuoNeb 3.0-0.5 MG/3 ML] 3 ml INH Q4H PRN 11/19/17 [ History] Potassium Chloride 2 cap PO BID 11/19/17 [History] Warfarin [Coumadin] 2.5 mg PO ASDIRECTED 11/19/17 [History] Bumetanide [Bumex] 1 mg PO DAILY 11/24/17 [History] Montelukast [Singulair] 10 mg PO BEDTIME 03/04/18 [History] Levothyroxine Sodium [Synthroid] 100 mcg PO DAILY 10/21/18 [History] Metoprolol Succinate 25 mg PO DAILY #30 tab.er.24h 10/23/18 [Rx] Albuterol [Proventil Neb Soln] 3 ml NEB Q4H PRN 08/04/19 [History] Cyanocobalamin (Vitamin B-12) [Vitamin B-12] 1,000 mcg SL DAILY 08/04/19 [ History] Fluticasone/Salmeterol [Advair 500-50] 1 puff INH BID 08/04/19 [History] Hydroxychloroquine Sulfate [Plaquenil] 200 mg PO DAILY 08/04/19 [History] Magnesium Citrate 125 mg PO TID 08/04/19 [History] Menthol/Methyl Salicylate [Thera-Gesic Analgesic Cream] 1 applic TP ASDIRECTED PRN 08/04/19 [History] Multivitamin-Min/Iron/FA/Vit K [Multi-Day Plus Minerals Tablet] 1 each PO DAILY 08/04/19 [History] Umeclidinium [place] [Incruse Ellipta*] 1 inhalation IH DAILY 08/18/19 [History] Past Medical History HEENT History: Reports: Cataract, Hard of Hearing, Impaired Vision Cardiovascular History: Reports: Afib, High Cholesterol, Hypertension, Pacemaker Other Cardiovascular History: defibriblilation Respiratory History: Reports: COPD, Sleep Apnea, SOB, Other (See Below) Other Respiratory History: Cpap and home O2 2L prn Gastrointestinal History: Reports: Bowel Obstruction, GERD, Hiatal Hernia Genitourinary History: Reports: Urinary Incontinence, UTI, Recurrent [employer] History: Reports: , Other (See Below) Other OB/BYN History: hemorrhaging Musculoskeletal History: Reports: Back Pain, Chronic, RA Other Musculoskeletal History: Torn rotator cuff Neurological History: Reports: CVA, Migraines Endocrine/Metabolic History: Reports: Hypothyroidism, Obesity/BMI 30+ Hematologic History: Reports: Anemia, Blood Transfusion(s) - Infectious Disease History Infectious Disease History: Reports: Chicken Pox, Measles, Mumps, Shingles - Past Surgical History Head Surgeries/Procedures: Reports: None HEENT Surgical History: Reports: Cataract Surgery Cardiovascular Surgical History: Reports: Coronary Artery Stent Respiratory Surgical History: Reports: None GI Surgical History: Reports: Appendectomy, Cholecystectomy, Hernia Repair/Other , Small Bowel Other GI Surgeries/Procedures: removal of mesh 2016 Female Surgical History: Reports: D&C, Hysterectomy, Salpingo-Oophorectomy Neurological Surgical History: Reports: C-Spine, Other (See Below) Musculoskeletal Surgical History: Reports: Knee Replacement, Other (See Below) Other Musculoskeletal Surgeries/Procedures:: L knee replaced Social & Family History - Family History Family Medical History: Noncontributory HEENT: Reports: Cataract Cardiac: Reports: Hypertension Respiratory: Reports: Asthma, COPD Other Respiratory Family Hisory: emphysema GI: Reports: Cholelithiasis, Colon Polyps OBGYN: Reports: Musculoskeletal: Reports: Arthritis Psychiatric: Reports: Anxiety, Depression Endocrine/Metabolic: Reports: Hypothyroidism Oncologic: Reports: Skin - Tobacco Use Smoking Status *Q: Former Smoker Used Tobacco, but Quit: Yes Month/Year Tobacco Last Used: 1969 - Caffeine Use Caffeine Use: Reports: Tea - Recreational Drug Use Recreational Drug Use: No H&P Review of Systems - Review of Systems: Review Of Systems: See Below Free Text/Narrative: A complete 12 point review of systems was obtained. Pertinent positives and negatives are noted in the history of present illness. All other systems were reviewed and were negative except as noted. Exam - Exam Exam: See Below - Vital Signs Vital Signs: Last Vital Signs Temp 36.3 C 08/18/19 05:48 Pulse 126 H 08/18/19 07:25 Resp 29 H 08/18/19 07:25 BP 149/104 H 08/18/19 07:25 Pulse Ox 98 08/18/19 07:25 Weight: 77.564 kg - Exam Quality Assessment: Supplemental Oxygen General: Alert, Oriented, Cooperative, Mild Distress HEENT: Conjunctiva Clear, Mucosa Moist & [place]. No: Scleral Icterus Neck: Supple, Trachea Midline, JVD. No: Lymphadenopathy Lungs: Crackles (both bases and left mid lung area ). No: Normal Respiratory Effort (increased work of breathing ), Wheezing Cardiovascular: Irregular Rhythm, Tachycardia. No: Systolic Murmur GI/Abdominal Exam: Normal Bowel Sounds, Soft, No Distention, Tender (mild generalized ) Back Exam: Normal Inspection, Full Range of Motion Extremities: No Pedal Edema. No: Increased Warmth Peripheral Pulses: 2+: Dorsalis Pedis (L), Dorsalis Pedis (R) Skin: Warm, Dry, Incision (bottom of right foot. No erythema or drainage. Sutures intact ) Neuro Extensive - Mental Status: Alert, Oriented x3, Nl Response to Commands Neuro Extensive - Motor, Sensory, Reflexes: No: Dysarthria, Abnormal Motor, Tremor Psychiatric: Alert, Normal Affect - Patient Data Lab Results Last 24 hrs: Laboratory Results - last 24 hr 08/18/19 08/18/19 08/18/19 Range/Units 05:47 05:55 05:55 WBC 11.0 (4.5-11.0) K/uL RBC 3.57 (3.30-5.50) M/uL Hgb 9.3 L (12.0-15.0) g/dL Hct 32.0 L (36.0-48.0) % MCV 90 (80-98) fL MCH 26 L (27-31) pg MCHC 29 L (32-36) % Plt Count 274 (150-400) K/uL Neut % (Auto) 68 H (36-66) % Lymph % (Auto) 21 L (24-44) % [place] % (Auto) 11 H (2-6) % Eos % (Auto) 1 L (2-4) % Baso % (Auto) 1 (0-1) % PT (9.5-12.0) sec INR (0.80-1.20) Puncture Site Rt radial ABG pH 7.419 (7.350-7.450) ABG pCO2 25.7 L (35.0-42.0) mmHg ABG pO2 121.0 H (75.0-100.0) mmHg ABG HCO3 16.3 L (22.0-26.0) mmol/L ABG Total CO2 15.2 L (21.0-25.0) mmol/L ABG O2 Saturation 98.6 H (95.0-98.0) % ABG O2 Content 13.1 L (15.0-23.0) %vol ABG Base Excess -6.7 mm/L ABG Hemoglobin 9.5 L (12.0-16.0) g/dL ABG Oxyhemoglobin 96.2 % ABG Carboxyhemoglobin 1.5 (0.0-1.6) % ABG Methemoglobin 0.9 % Zia Test Passed O2 Delivery Device Nasal cannula Oxygen Flow Rate 2.0 L Sodium 141 (140-148) mmol/L Potassium 5.7 H (3.6-5.2) mmol/L Chloride 109 H (100-108) mmol/L Carbon Dioxide 20 L (21-32) mmol/L Anion Gap 17.7 H (5.0-14.0) mmol/L BUN 28 H (7-18) mg/dL Creatinine 3.0 H D (0.6-1.0) mg/dL Est Cr Clr Drug Dosing 10.03 mL/min Estimated GFR (MDRD) 15 L (>60) Glucose 84 (74-106) mg/dL Calcium 8.3 L (8.5-10.1) mg/dL Total Bilirubin 0.7 (0.2-1.0) mg/dL AST 38 H D (15-37) U/L ALT 30 D (12-78) U/L Alkaline Phosphatase 81 (46-116) U/L Troponin I (0.000-0.056) ng/mL NT-Pro-B Natriuret Pep (5-450) pg/mL Total Protein 6.1 L (6.4-8.2) g/dL Albumin 3.0 L (3.4-5.0) g/dL Globulin 3.1 (2.3-3.5) g/dL Albumin/Globulin Ratio 1.0 L (1.2-2.2) Free T4 (0.76-1.46) ng/dL TSH, Ultra Sensitive (0.358-3.740) uIU/mL Urine Color (YELLOW) Urine Appearance (CLEAR) Urine pH (5.0-8.0) Ur Specific [place] (1.008-1.030) Urine Protein (NEGATIVE) mg/dL Urine Glucose (UA) (NEGATIVE) mg/dL Urine Ketones (NEGATIVE) mg/dL Urine Occult Blood (NEGATIVE) Urine Nitrite (NEGATIVE) Urine Bilirubin (NEGATIVE) Urine Urobilinogen (0.2-1.0) EU/dL Ur Leukocyte Esterase (NEGATIVE) Urine RBC (0-5) Urine WBC (0-5) Ur Epithelial Cells Amorphous Sediment Urine Bacteria Urine Mucus Urine Other 08/18/19 08/18/19 08/18/19 Range/Units 05:55 05:57 05:57 WBC (4.5-11.0) K/uL RBC (3.30-5.50) M/uL Hgb (12.0-15.0) g/dL Hct (36.0-48.0) % MCV (80-98) fL MCH (27-31) pg MCHC (32-36) % Plt Count (150-400) K/uL Neut % (Auto) (36-66) % Lymph % (Auto) (24-44) % [place] % (Auto) (2-6) % Eos % (Auto) (2-4) % Baso % (Auto) (0-1) % PT 22.7 H (9.5-12.0) sec INR 2.20 H (0.80-1.20) Puncture Site ABG pH (7.350-7.450) ABG pCO2 (35.0-42.0) mmHg ABG pO2 (75.0-100.0) mmHg ABG HCO3 (22.0-26.0) mmol/L ABG Total CO2 (21.0-25.0) mmol/L ABG O2 Saturation (95.0-98.0) % ABG O2 Content (15.0-23.0) %vol ABG Base Excess mm/L ABG Hemoglobin (12.0-16.0) g/dL ABG Oxyhemoglobin % ABG Carboxyhemoglobin (0.0-1.6) % ABG Methemoglobin % Zia Test O2 Delivery Device Oxygen Flow Rate L Sodium (140-148) mmol/L Potassium (3.6-5.2) mmol/L Chloride (100-108) mmol/L Carbon Dioxide (21-32) mmol/L Anion Gap (5.0-14.0) mmol/L BUN (7-18) mg/dL Creatinine (0.6-1.0) mg/dL Est Cr Clr Drug Dosing mL/min Estimated GFR (MDRD) (>60) Glucose (74-106) mg/dL Calcium (8.5-10.1) mg/dL Total Bilirubin (0.2-1.0) mg/dL AST (15-37) U/L ALT (12-78) U/L Alkaline Phosphatase (46-116) U/L Troponin I 0.035 (0.000-0.056) ng/mL NT-Pro-B Natriuret Pep 14998 H (5-450) pg/mL Total Protein (6.4-8.2) g/dL Albumin (3.4-5.0) g/dL Globulin (2.3-3.5) g/dL Albumin/Globulin Ratio (1.2-2.2) Free T4 (0.76-1.46) ng/dL TSH, Ultra Sensitive 0.318 L (0.358-3.740) uIU/mL Urine Color (YELLOW) Urine Appearance (CLEAR) Urine pH (5.0-8.0) Ur Specific [place] (1.008-1.030) Urine Protein (NEGATIVE) mg/dL Urine Glucose (UA) (NEGATIVE) mg/dL Urine Ketones (NEGATIVE) mg/dL Urine Occult Blood (NEGATIVE) Urine Nitrite (NEGATIVE) Urine Bilirubin (NEGATIVE) Urine Urobilinogen (0.2-1.0) EU/dL Ur Leukocyte Esterase (NEGATIVE) Urine RBC (0-5) Urine WBC (0-5) Ur Epithelial Cells Amorphous Sediment Urine Bacteria Urine Mucus Urine Other 08/18/19 08/18/19 Range/Units 06:07 07:25 WBC (4.5-11.0) K/uL RBC (3.30-5.50) M/uL Hgb (12.0-15.0) g/dL Hct (36.0-48.0) % MCV (80-98) fL MCH (27-31) pg MCHC (32-36) % Plt Count (150-400) K/uL Neut % (Auto) (36-66) % Lymph % (Auto) (24-44) % [place] % (Auto) (2-6) % Eos % (Auto) (2-4) % Baso % (Auto) (0-1) % PT (9.5-12.0) sec INR (0.80-1.20) Puncture Site ABG pH (7.350-7.450) ABG pCO2 (35.0-42.0) mmHg ABG pO2 (75.0-100.0) mmHg ABG HCO3 (22.0-26.0) mmol/L ABG Total CO2 (21.0-25.0) mmol/L ABG O2 Saturation (95.0-98.0) % ABG O2 Content (15.0-23.0) %vol ABG Base Excess mm/L ABG Hemoglobin (12.0-16.0) g/dL ABG Oxyhemoglobin % ABG Carboxyhemoglobin (0.0-1.6) % ABG Methemoglobin % Zia Test O2 Delivery Device Oxygen Flow Rate L Sodium (140-148) mmol/L Potassium (3.6-5.2) mmol/L Chloride (100-108) mmol/L Carbon Dioxide (21-32) mmol/L Anion Gap (5.0-14.0) mmol/L BUN (7-18) mg/dL Creatinine (0.6-1.0) mg/dL Est Cr Clr Drug Dosing mL/min Estimated GFR (MDRD) (>60) Glucose (74-106) mg/dL Calcium (8.5-10.1) mg/dL Total Bilirubin (0.2-1.0) mg/dL AST (15-37) U/L ALT (12-78) U/L Alkaline Phosphatase (46-116) U/L Troponin I (0.000-0.056) ng/mL NT-Pro-B Natriuret Pep (5-450) pg/mL Total Protein (6.4-8.2) g/dL Albumin (3.4-5.0) g/dL Globulin (2.3-3.5) g/dL Albumin/Globulin Ratio (1.2-2.2) Free T4 1.64 H (0.76-1.46) ng/dL TSH, Ultra Sensitive (0.358-3.740) uIU/mL Urine Color Yellow (YELLOW) Urine Appearance Cloudy A (CLEAR) Urine pH 5.5 (5.0-8.0) Ur Specific [place] 1.025 (1.008-1.030) Urine Protein 100 H (NEGATIVE) mg/dL Urine Glucose (UA) Negative (NEGATIVE) mg/dL Urine Ketones Negative (NEGATIVE) mg/dL Urine Occult Blood Large H (NEGATIVE) Urine Nitrite Negative (NEGATIVE) Urine Bilirubin Negative (NEGATIVE) Urine Urobilinogen 0.2 (0.2-1.0) EU/dL Ur Leukocyte Esterase Small H (NEGATIVE) Urine RBC 20-30 H (0-5) Urine WBC 20-30 H (0-5) Ur Epithelial Cells Few Amorphous Sediment Not seen Urine Bacteria Many Urine Mucus Not seen Urine Other Result Diagrams: 08/18/19 05:55 08/18/19 13:54 Imaging Impressions Last 24 hrs: CXR-image personally reviewed-lungs clear with no mass, infiltrate or effusion. heart size is enlarged. EKG INTERPRETATION EKG Date: 08/18/19 Rhythm: A-Fib Rate (Beats/Min): 123 [place]: Normal P-Wave: Variable QRS: Normal ST-T: Normal QT: Normal Sepsis Event Note - Evaluation Sepsis Screening Result: Possible Sepsis Risk - Focused Exam Vital Signs: Vital Signs Temp Pulse Resp BP Pulse Ox 08/18/19 07:25 126 H 29 H 149/104 H 98 08/18/19 07:18 139 H 31 H 163/107 H 98 08/18/19 06:47 133 H 30 H 167/112 H 98 08/18/19 05:48 36.3 C 138 H 32 H 165/111 H 2 L Date Exam was Performed: 08/18/19 Time Exam was Performed: 15:22 *Q Meaningful Use (ADM) - VTE Risk Assess *Q Each Risk Factor Represents 1 Point: Obesity ( BMI > 25 kg/m2), Congestive heart failure (CHF), Abnormal Pulmonary Function (COPD) Total Score 1 Point Risk Factors: 3 Each Risk Factor Represents 2 Points: None Total Score 2 Point Risk Factors: 0 Each Risk Factor Represents 3 Points: Age 75 Years or Greater Total Score 3 Point Risk Factors: 3 Each Risk Factor Represents 5 Points: None Total Score 5 Point Risk Factors: 0 Venous Thromboembolism Risk Factor Score *Q: 6 - Problem List (1) CHF (congestive heart failure) SNOMED Code(s): 90285743 ICD Code: I50.9 - HEART FAILURE, UNSPECIFIED Status: Acute Current Visit : Yes Qualifiers: Heart failure type: diastolic Heart failure chronicity: acute on chronic Qualified Code(s): I50.33 - Acute on chronic diastolic (congestive) heart failure (2) Atrial fibrillation with rapid ventricular response SNOMED Code(s): 290486420203815 ICD Code: I48.91 - UNSPECIFIED ATRIAL FIBRILLATION Status: Acute Current Visit: Yes (3) Acute kidney injury SNOMED Code(s): 59965495, 78466324 ICD Code: N17.9 - ACUTE KIDNEY FAILURE, UNSPECIFIED Status: Acute Current Visit: No (4) COPD (chronic obstructive pulmonary disease) SNOMED Code(s): 69417958 ICD Code: J44.9 - CHRONIC OBSTRUCTIVE PULMONARY DISEASE, UNSPECIFIED Status : Chronic Current Visit: Yes Qualifiers: Emphysema type: unspecified (5) Acute cystitis with hematuria SNOMED Code(s): 78209913, 47941838 ICD Code: N30.01 - ACUTE CYSTITIS WITH HEMATURIA Status: Acute Current Visit: No (6) Rheumatoid arthritis SNOMED Code(s): 62629283 ICD Code: M06.9 - RHEUMATOID ARTHRITIS, UNSPECIFIED Status: Chronic Current Visit: No Qualifiers: Rheumatoid arthritis location: multiple sites Rheumatoid factor presence: unspecified presence Qualified Code(s): M06.9 - Rheumatoid arthritis, unspecified Problem List Initiated/Reviewed/Updated: Yes Orders Last 24hrs: Active Orders 24 hr Category Date Time Status Patient Status Manage Transfer [TRANSFER] Routine ADT 08/18/19 08:50 Active EKG Documentation Completion [RC] ASDIRECTED Care 08/18/19 05:53 Active CULTURE URINE [RM] Stat Lab 08/18/19 06:00 Received Diltiazem [Cardizem] 100 mg Med 08/18/19 06:45 Active Sodium Chloride 0.9% [Normal Saline] 100 ml IV TITRATE cefTRIAXone [Rocephin] 1 gm Med 08/18/19 07:45 Active Sodium Chloride 0.9% [Normal Saline] 50 ml IV Q24H Resuscitation Status Routine Resus Stat 08/18/19 08:53 Ordered EKG 12 Lead [EK] Routine Ther 08/18/19 05:53 Ordered Medication Orders Diltiazem HCl 100 mg/ Sodium (Chloride) 100 mls @ 5 mls/hr IV TITRATE PAUL; Protocol Last Admin: 08/18/19 07:21 Dose: 5 mg/hr, 5 mls/hr Ceftriaxone Sodium 1 gm/ (Sodium Chloride) 50 mls @ 100 mls/hr IV Q24H PAUL Last Admin: 08/18/19 08:25 Dose: 100 mls/hr Assessment/Plan Comment:: ASSESSMENT AND PLAN - Acute on chronic diastolic congestive heart failure-I believe her exacerbation was caused by a urinary tract infection and there is contribution from her atrial fibrillation. I would anticipate that treating the infection and some diuresis will improve her congestive heart failure. If she does not improve she may benefit from additional work-up including echocardiogram but at this point I will hold off. -Reassess volume status -Continue beta-ellyn -Supplement oxygen Atrial fibrillation with rapid ventricular response-probably a result of the infection and congestive heart failure. Diltiazem drip has been started. She is chronically anticoagulated. -Continue diltiazem infusion -Continue beta-ellyn -Continue warfarin Acute cystitis without hematuria-urinary tract infection was probably the inciting event for the above issues. No significant symptoms and no evidence for sepsis. -Antibiotic coverage with ceftriaxone -Follow-up urine culture Acute on chronic kidney disease-most recent creatinine levels have been in the stage IV range and are slightly worse today but she was in the upper ranges of stage III less than 2 years ago. Hopefully her function will improve with treating the infection and improving cardiac status as discussed above. -Labs in the morning Hyperkalemia-mild hyperkalemia noted on lab studies this morning. She is on a supplement. She has received furosemide. -Hold potassium supplement -Repeat this evening COPD, oxygen dependent-no evidence for infection or acute exacerbation. -Continue home medications and nebulizers Maintenance issues - - DVT prophylaxis -warfarin - GI prophylaxis -not indicated - Nutrition -low-sodium - [place] catheter -not indicated CODE STATUS -DNR/DNI Admission justification -this patient will be admitted for inpatient services and is medically appropriate meeting medical necessity for inpatient admission as outlined in my documentation. I reasonably expect the patient will require inpatient services that span a period time over 2 midnights. I reasonably expect this patient to be discharged or transferred within 96 hours [facility]. Disposition -I would anticipate discharge home after the hospital stay Primary care physician -Dr Sundeep Teran M.D. - Mortality Measure Prognosis:: Good
[2019-08-18] MEDS ORDERED: Ondansetron 4 MG/2 ML SDV IV PRN (10:11)
[2019-08-18] MEDS ORDERED: Albuterol 0.083% 2.5 MG/3 ML Neb Soln NEB PRN (10:11)
[2019-08-18] MEDS ORDERED: traMADol 50 MG Tab PO PRN (10:11)
[2019-08-18] MEDS ORDERED: Acetaminophen 325 MG Tab PO PRN (10:11)
[2019-08-18] MEDS ORDERED: Ondansetron 4 MG Tab.DIS PO PRN (10:11)
[2019-08-18] MEDS ORDERED: LORazepam 2 MG/ML SDV IVPUSH PRN (10:11)
[2019-08-18] MEDS ORDERED: Magnesium Hydroxide 400 MG/5 ML Susp 30 ML Cup PO PRN (10:11)
[2019-08-18] MEDS: Fluticasone-Salmeterol 232-14 MCG Powder Inhalent INH SCH ×2 (11:11→21:23)
[2019-08-18] MEDS: Albuterol/Ipratropium 3.0-0.5 MG/3 ML Neb Soln NEB SCH ×3 (11:11→21:02)
[2019-08-18] MEDS: Aspirin 81 MG Tab.EC PO SCH (11:23)
[2019-08-18] MEDS: Metoprolol Succinate 25 MG Tab.ER PO SCH (11:24)
[2019-08-18] MEDS: Lactobacillus Rhamnosus GG (Probiotic) Cap PO SCH ×2 (11:24→21:01)
[2019-08-18] MEDS: Hydroxychloroquine 200 MG Tab PO SCH (11:24)
[2019-08-18] MEDS: Cyanocobalamin (Vitamin B12) 1,000 MCG Tab SL SCH (11:24)
[2019-08-18] MEDS ORDERED: Menthol/Methyl Salicylate 85 GM Tube TOP PRN (12:25)
[2019-08-18] MEDS: Diltiazem 100 MG in Sodium Chloride 0.9% 100 ML IV SCH ×2 (14:47→21:07)
[2019-08-18] MEDS: Warfarin 2.5 MG Tab PO SCH (21:01)
[2019-08-18] MEDS: Melatonin 3 MG Tab PO SCH (21:02)
[2019-08-18] MEDS: Simvastatin 20 MG Tab PO SCH (21:02)
[2019-08-19] MEDS: Diltiazem 100 MG in Sodium Chloride 0.9% 100 ML IV SCH ×2 (03:18→10:04)
[2019-08-19] MEDS: Albuterol/Ipratropium 3.0-0.5 MG/3 ML Neb Soln NEB SCH ×4 (07:27→20:32)
[2019-08-19] MEDS: Fluticasone-Salmeterol 232-14 MCG Powder Inhalent INH SCH ×2 (07:28→20:31)
[2019-08-19] MEDS: Glycopyrrolate 15.6 MCG Cap.W.Dev Kit of 6 IH SCH ×2 (07:29→20:31)
[2019-08-19] MEDS: cefTRIAXone 1 GM in Sodium Chloride 0.9% 50 ML IV SCH (08:19)
[2019-08-19] MEDS: Levothyroxine 88 MCG Tab PO SCH (08:23)
[2019-08-19] MEDS: Lactobacillus Rhamnosus GG (Probiotic) Cap PO SCH ×2 (08:23→20:30)
[2019-08-19] MEDS: Bumetanide 1 MG Tab PO SCH (08:23)
[2019-08-19] MEDS: Aspirin 81 MG Tab.EC PO SCH (08:24)
[2019-08-19] MEDS: Metoprolol Succinate 25 MG Tab.ER PO SCH (08:24)
[2019-08-19] MEDS: Hydroxychloroquine 200 MG Tab PO SCH (08:24)
[2019-08-19] MEDS: Cyanocobalamin (Vitamin B12) 1,000 MCG Tab SL SCH (08:25)
[2019-08-19] MEDS ORDERED: Potassium Chloride 20 MEQ Tab.ER PO ONE (09:00)
[2019-08-19] MEDS ORDERED: Non-Formulary Medication 1 Each (Tiotropium [Spiriva Handihaler] 18 MCG) INH SCH (09:00)
[2019-08-19] MEDS ORDERED: Magnesium Sulfate/Water 2 GM in Premix Bag 1 BAG IV ONE (09:00)
[2019-08-19] MEDS ORDERED: Non-Formulary Medication 1 Each (Umeclidinium Brm/Vilanterol Tr [Anoro Ellipta 62.5-25 Mcg IH SCH (09:00)
--- NOTE | 2019-08-19 09:52 | PCM.PN ---
- General Info Date of Service: 08/19/19 Subjective Update: No acute events overnight. Excellent rate control with the diltiazem infusion. Shortness of breath has improved significantly since yesterday and she does remain stable on 2 L of supplemental oxygen. No fevers overnight. No abdominal pain or nausea. Urine culture is growing a gram-negative adry. Blood pressures have been stable. Appetite and strength slowly improving. Kidney function moderately better today. Functional Status: Reports: Pain Controlled, Tolerating Diet - Review of Systems General: Reports: Weakness. Denies: Fever Pulmonary: Reports: Shortness of Breath - Patient Data Vitals - Most Recent: Last Vital Signs Temp 37.0 C 08/19/19 07:00 Pulse 71 08/19/19 09:00 Resp 22 H 08/19/19 07:00 BP 114/55 L 08/19/19 08:24 Pulse Ox 95 08/19/19 07:29 Weight - Most Recent: 77.564 kg I&O - Last 24 Hours: Intake & Output 08/18/19 08/19/19 08/19/19 22:59 06:59 14:59 Intake Total 255 Output Total 300 300 Balance 255 -300 -300 Lab Results Last 24 Hours: Laboratory Results - last 24 hr 08/18/19 08/19/19 08/19/19 Range/Units 13:54 05:42 05:42 WBC 8.2 (4.5-11.0) K/uL RBC 3.15 L (3.30-5.50) M/uL Hgb 8.4 L (12.0-15.0) g/dL Hct 28.3 L (36.0-48.0) % MCV 90 (80-98) fL MCH 27 (27-31) pg MCHC 30 L (32-36) % Plt Count 237 (150-400) K/uL PT 22.2 H (9.5-12.0) sec INR 2.15 H (0.80-1.20) Sodium 144 (140-148) mmol/L Potassium 4.0 (3.6-5.2) mmol/L Chloride 108 (100-108) mmol/L Carbon Dioxide 24 (21-32) mmol/L Anion Gap 11.9 (5.0-14.0) mmol/L BUN 28 H (7-18) mg/dL Creatinine 3.0 H (0.6-1.0) mg/dL Est Cr Clr Drug Dosing 10.03 mL/min Estimated GFR (MDRD) 15 L (>60) Glucose 92 (74-106) mg/dL Calcium 8.3 L (8.5-10.1) mg/dL Magnesium (1.8-2.4) mg/dL 08/19/19 Range/Units 05:42 WBC (4.5-11.0) K/uL RBC (3.30-5.50) M/uL Hgb (12.0-15.0) g/dL Hct (36.0-48.0) % MCV (80-98) fL MCH (27-31) pg MCHC (32-36) % Plt Count (150-400) K/uL PT (9.5-12.0) sec INR (0.80-1.20) Sodium 142 (140-148) mmol/L Potassium 3.4 L (3.6-5.2) mmol/L Chloride 107 (100-108) mmol/L Carbon Dioxide 25 (21-32) mmol/L Anion Gap 13.4 (5.0-14.0) mmol/L BUN 27 H (7-18) mg/dL Creatinine 2.6 H (0.6-1.0) mg/dL Est Cr Clr Drug Dosing 11.57 mL/min Estimated GFR (MDRD) 18 L (>60) Glucose 93 (74-106) mg/dL Calcium 7.9 L (8.5-10.1) mg/dL Magnesium 1.7 L D (1.8-2.4) mg/dL Darshan Results Last 24 Hours: Microbiology 08/18/19 06:00 Urine Culture - Preliminary Urine, Bladder Med Orders - Current: Current Medications Acetaminophen (Tylenol) 650 mg PO Q4H PRN PRN Reason: Pain (Mild 1-3)/fever Albuterol (Proventil Neb Soln) 2.5 mg NEB Q4H PRN PRN Reason: Shortness Of Breath/wheezing Albuterol/Ipratropium (Duoneb 3.0-0.5 Mg/3 Ml) 3 ml NEB QIDRT [facility] Last Admin: 08/19/19 07:27 Dose: 3 ml Aspirin (Halfprin) 81 mg PO DAILY [facility] Last Admin: 08/19/19 08:24 Dose: 81 mg Bumetanide (Bumex) 1 mg PO DAILY [facility] Last Admin: 08/19/19 08:23 Dose: 1 mg Cyanocobalamin (Vitamin B12) 1,000 mcg SL DAILY [facility] Last Admin: 08/19/19 08:25 Dose: 1,000 mcg Glycopyrrolate (Seebri Neohaler) 15.6 mcg IH BIDRT [facility] Last Admin: 08/19/19 07:29 Dose: 1 cap Hydroxychloroquine Sulfate (Plaquenil) 200 mg PO DAILY [facility] Last Admin: 08/19/19 08:24 Dose: 200 mg Ceftriaxone Sodium 1 gm/ (Sodium Chloride) 50 mls @ 100 mls/hr IV Q24H [facility] Last Admin: 08/19/19 08:19 Dose: 100 mls/hr Diltiazem HCl 100 mg/ Sodium (Chloride) 100 mls @ 5 mls/hr IV TITRATE [facility]; Protocol Last Admin: 08/19/19 03:18 Dose: 15 mg/hr, 15 mls/hr Magnesium Sulfate 2 gm/ Premix 50 mls @ 12.5 mls/hr IV ONETIME ONE Stop: 08/19/19 12:59 Last Admin: 08/19/19 08:54 Dose: 12.5 mls/hr Lactobacillus Rhamnosus (Culturelle) 1 cap PO BID [facility] Last Admin: 08/19/19 08:23 Dose: 1 cap Levothyroxine Sodium (Synthroid) 88 mcg PO ACBREAKFAST [facility] Last Admin: 08/19/19 08:23 Dose: 88 mcg Lorazepam (Ativan) 0.5 mg IVPUSH Q4H PRN PRN Reason: Nausea/Vomiting Magnesium Hydroxide (Milk Of Magnesia) 30 ml PO Q12H PRN PRN Reason: Constipation Melatonin (Melatonin) 9 mg PO BEDTIME [facility] Last Admin: 08/18/19 21:02 Dose: 9 mg Methyl Salicylate (Icy Hot Cream) 0 gm TOP QID PRN PRN Reason: Pain (mild 1-3) Stop: 08/24/19 23:58 Last Admin: 08/18/19 12:39 Dose: 1 applic Metoprolol Succinate (Toprol Xl) 25 mg PO DAILY [facility] Last Admin: 08/19/19 08:24 Dose: 25 mg Ondansetron HCl (Zofran Odt) 4 mg PO Q6H PRN PRN Reason: Nausea able to take PO Ondansetron HCl (Zofran) 4 mg IV Q6H PRN PRN Reason: Nausea/Vomiting Fluticasone/Salmeterol (Fluticasone-Salmeterol 232-14 Mcg Powder Inha) 1 puff INH BIDRT [facility] Last Admin: 08/19/19 07:28 Dose: 1 puff Senna/Docusate Sodium (Senna Plus) 1 tab PO BID PRN PRN Reason: Constipation Simvastatin (Zocor) 20 mg PO BEDTIME [facility] Last Admin: 08/18/19 21:02 Dose: 20 mg Tramadol HCl (Ultram) 50 mg PO Q12H PRN PRN Reason: Pain (severe 7-10) Last Admin: 08/18/19 14:52 Dose: 50 mg Warfarin Sodium (Coumadin) 2.5 mg PO DAILY@1300 [facility] Last Admin: 08/18/19 21:01 Dose: 2.5 mg Discontinued Medications Diltiazem HCl (Diltiazem) 10 mg IVPUSH ONETIME ONE Stop: 08/18/19 06:41 Last Admin: 08/18/19 07:22 Dose: 10 mg Furosemide (Lasix) 60 mg IVPUSH ONETIME ONE Stop: 08/18/19 06:34 Last Admin: 08/18/19 07:18 Dose: Not Given Furosemide (Lasix) 60 mg IVPUSH ONETIME ONE Stop: 08/18/19 07:31 Last Admin: 08/18/19 07:16 Dose: 60 mg Diltiazem HCl 100 mg/ Sodium (Chloride) 100 mls @ 5 mls/hr IV TITRATE [facility]; Protocol Last Titration: 08/18/19 10:13 Dose: 15 mg/hr, 15 mls/hr Ceftriaxone Sodium 1 gm/ (Sodium Chloride) 50 mls @ 100 mls/hr IV Q24H [facility] Non-Formulary Medication (Tiotropium [Spiriva Handihaler]) 18 mcg INH DAILY [facility] Non-Formulary Medication (Umeclidinium Brm/Vilanterol Tr [Anoro Ellipta 62.5-25 Mcg]) 1 puff IH DAILY [facility] Potassium Chloride (Klor-Con M20) 40 meq PO ONETIME ONE Stop: 08/19/19 09:01 Last Admin: 08/19/19 08:53 Dose: 40 meq - Exam Quality Assessment: Supplemental Oxygen General: Alert, Oriented, Cooperative, No Acute Distress Lungs: Clear to Auscultation, Normal Respiratory Effort Cardiovascular: Regular Rate, Regular Rhythm GI/Abdominal Exam: Soft, No Distention Extremities: Pedal Edema (trace bilateral ankle edema ). No: Increased Warmth Skin: Warm, Dry Psy/Mental Status: Alert, Normal Affect Sepsis Event Note - Evaluation Sepsis Screening Result: No Definite Risk - Focused Exam Vital Signs: Vital Signs Temp Pulse Pulse Resp BP BP Pulse Ox 08/19/19 09:00 71 08/19/19 08:24 72 114/55 L 08/19/19 08:00 72 08/19/19 07:29 70 08/19/19 07:00 37.0 C 71 22 H 114/55 L 92 L 08/19/19 06:00 19 112/54 L 93 L 08/19/19 05:00 20 104/61 93 L 08/19/19 04:00 36.5 C 19 119/56 L 93 L 08/19/19 03:00 22 H 107/53 L 92 L 08/19/19 02:00 20 117/55 L 93 L 08/19/19 01:00 21 H 112/55 L 91 L 08/19/19 00:00 19 108/56 L 95 08/18/19 23:00 18 109/62 95 08/18/19 22:00 26 H 117/61 93 L Pulse Ox 08/19/19 09:00 08/19/19 08:24 08/19/19 08:00 08/19/19 07:29 95 08/19/19 07:00 08/19/19 06:00 08/19/19 05:00 08/19/19 04:00 08/19/19 03:00 08/19/19 02:00 08/19/19 01:00 08/19/19 00:00 08/18/19 23:00 08/18/19 22:00 Date Exam was Performed: 08/19/19 Time Exam was Performed: 16:21 - Problem List & Annotations (1) CHF (congestive heart failure) SNOMED Code(s): 38170965 Code(s): I50.9 - HEART FAILURE, UNSPECIFIED Status: Acute Current Visit: Yes Qualifiers: Heart failure type: diastolic Heart failure chronicity: acute on chronic Qualified Code(s): I50.33 - Acute on chronic diastolic (congestive) heart failure (2) Atrial fibrillation with rapid ventricular response SNOMED Code(s): 373155444112470 Code(s): I48.91 - UNSPECIFIED ATRIAL FIBRILLATION Status: Acute Current Visit: Yes (3) Acute kidney injury SNOMED Code(s): 22737210, 42557861 Code(s): N17.9 - ACUTE KIDNEY FAILURE, UNSPECIFIED Status: Resolved Current Visit: No (4) COPD (chronic obstructive pulmonary disease) SNOMED Code(s): 47720071 Code(s): J44.9 - CHRONIC OBSTRUCTIVE PULMONARY DISEASE, UNSPECIFIED Status : Chronic Current Visit: Yes Qualifiers: Emphysema type: unspecified (5) Acute cystitis with hematuria SNOMED Code(s): 94478154, 89767466 Code(s): N30.01 - ACUTE CYSTITIS WITH HEMATURIA Status: Acute Current Visit: No (6) Rheumatoid arthritis SNOMED Code(s): 28598833 Code(s): M06.9 - RHEUMATOID ARTHRITIS, UNSPECIFIED Status: Chronic Current Visit: No Qualifiers: Rheumatoid arthritis location: multiple sites Rheumatoid factor presence: unspecified presence Qualified Code(s): M06.9 - Rheumatoid arthritis, unspecified - Problem List Review Problem List Initiated/Reviewed/Updated: Yes - My Orders Last 24 Hours: My Active Orders 08/18/19 08:53 Resuscitation Status Routine 08/18/19 10:11 Patient Status [ADT] Routine Antiembolic Devices [RC] .Routine Cardiac Monitoring [RC] Q6H Height and Weight [RC] DAILY Intake and Output [RC] QSHIFT Notify Provider Vital Signs [RC] ASDIRECTED Oxygen Therapy [RC] PRN Pulse Oximetry [RC] CONTINUOUS RT Aerosol Therapy [RC] ASDIRECTED Up With Assistance [RC] ASDIRECTED Vital Signs [RC] Q2H PT Evaluation and Treatment [CONS] Routine Acetaminophen [Tylenol] 650 mg PO Q4H PRN Albuterol [Proventil Neb Soln] 2.5 mg NEB Q4H PRN Aspirin [Halfprin] 81 mg PO DAILY Cyanocobalamin (Vitamin B12) [Vitamin B12] 1,000 mcg SL DAILY Diltiazem [Cardizem] 100 mg Sodium Chloride 0.9% [Normal Saline] 100 ml IV TITRATE Docusate Sodium/Sennosides [Senna Plus] 1 tab PO BID PRN Fluticasone/Salmeterol [Fluticasone-Salmeterol 232-14 MCG Powder Inha] 1 puff INH BIDRT Hydroxychloroquine [Plaquenil] 200 mg PO DAILY LORazepam [Ativan] 0.5 mg IVPUSH Q4H PRN Lactobacillus Rhamnosus GG [Culturelle] 1 cap PO BID Magnesium Hydroxide [Milk of Magnesia] 30 ml PO Q12H PRN Metoprolol Succinate [Toprol XL] 25 mg PO DAILY Ondansetron [Zofran ODT] 4 mg PO Q6H PRN Ondansetron [Zofran] 4 mg IV Q6H PRN traMADol [Ultram] 50 mg PO Q12H PRN Antiembolic Hose [OM.PC] Routine 08/18/19 11:00 Albuterol/Ipratropium [DuoNeb 3.0-0.5 MG/3 ML] 3 ml NEB QIDRT 08/18/19 12:25 Menthol/Methyl Salicylate [Icy Hot Cream] 0 gm TOP QID PRN 08/18/19 13:00 Warfarin [Coumadin] 2.5 mg PO DAILY@1300 08/18/19 21:00 Melatonin 9 mg PO BEDTIME Simvastatin [Zocor] 20 mg PO BEDTIME 08/18/19 Lunch 2 Gram Sodium Diet [DIET] 08/19/19 07:00 Glycopyrrolate [Seebri Neohaler] 15.6 mcg IH BIDRT 08/19/19 07:30 Levothyroxine [Synthroid] 88 mcg PO ACBREAKFAST 08/19/19 09:00 Bumetanide [Bumex] 1 mg PO DAILY Magnesium Sulfate/Water [Magnesium Sulfate in Water Premix] 2 gm Premix Bag 1 bag IV ONETIME 08/20/19 05:00 BASIC METABOLIC PANEL,BMP [CHEM] Timed CBC W/O DIFF,HEMOGRAM [HEME] Timed (1) INR,PT,PROTHROMBIN TIME [COAG] Timed - Plan Plan:: ASSESSMENT AND PLAN - Acute on chronic diastolic congestive heart failure-significant improvement after just 1 dose of IV diuretics. Volume status appears appropriate today. -Restart daily diuretic -Continue beta-ellyn -Supplement oxygen Atrial fibrillation with rapid ventricular response-much improved with diltiazem infusion overnight. -Wean diltiazem infusion with the hope of stopping later in the day -Continue beta-ellyn -Continue warfarin Acute cystitis without hematuria-urinary tract infection was probably the inciting event for the above issues. Culture growing a gram-negative adry with identification pending. No fevers and doing well. -Antibiotic coverage with ceftriaxone -Follow-up urine culture Acute on chronic kidney disease-creatinine improving since admission but is not back to baseline. -Labs in the morning Hyperkalemia-resolved. Potassium actually on the low side now. -Supplement potassium this morning -Repeat tomorrow morning COPD, oxygen dependent-no evidence for infection or acute exacerbation. -Continue home medications and nebulizers Maintenance issues - - DVT prophylaxis -warfarin - GI prophylaxis -not indicated - Nutrition -low-sodium Disposition -I would anticipate discharge home after the hospital stay Primary care physician -Dr Sundeep Teran M.D.
[2019-08-19] MEDS: Warfarin 2.5 MG Tab PO SCH (13:03)
[2019-08-19] MEDS: Simvastatin 20 MG Tab PO SCH (20:31)
[2019-08-19] MEDS: Melatonin 3 MG Tab PO SCH (20:31)
[2019-08-20] MEDS: Albuterol/Ipratropium 3.0-0.5 MG/3 ML Neb Soln NEB SCH ×4 (07:09→21:17)
[2019-08-20] MEDS: Glycopyrrolate 15.6 MCG Cap.W.Dev Kit of 6 IH SCH ×2 (07:10→21:18)
[2019-08-20] MEDS: Fluticasone-Salmeterol 232-14 MCG Powder Inhalent INH SCH ×2 (07:10→21:17)
[2019-08-20] MEDS: Levothyroxine 88 MCG Tab PO SCH (08:02)
[2019-08-20] MEDS: cefTRIAXone 1 GM in Sodium Chloride 0.9% 50 ML IV SCH (08:04)
[2019-08-20] MEDS: Bumetanide 1 MG Tab PO SCH (08:34)
[2019-08-20] MEDS: Lactobacillus Rhamnosus GG (Probiotic) Cap PO SCH ×2 (08:34→21:20)
[2019-08-20] MEDS: Hydroxychloroquine 200 MG Tab PO SCH (08:35)
[2019-08-20] MEDS: Aspirin 81 MG Tab.EC PO SCH (08:35)
[2019-08-20] MEDS: Metoprolol Succinate 25 MG Tab.ER PO SCH (08:35)
[2019-08-20] MEDS: Cyanocobalamin (Vitamin B12) 1,000 MCG Tab SL SCH (08:36)
--- NOTE | 2019-08-20 09:42 | PCM.PN ---
- General Info Date of Service: 08/20/19 Subjective Update: No acute events overnight. She does remain in atrial fibrillation but rate control has been good after the diltiazem infusion was stopped. Oxygenation stable on her usual 2 L of oxygen. She reports her shortness of breath is at about baseline. Appetite and strength are little better today and she was able to ambulate in the hallway. No significant cough. No fevers. Urine culture grew out Enterobacter. Functional Status: Reports: Pain Controlled, Tolerating Diet - Review of Systems General: Reports: Weakness Pulmonary: Reports: Shortness of Breath - Patient Data Vitals - Most Recent: Last Vital Signs Temp 36.9 C 08/20/19 07:00 Pulse 91 08/20/19 08:35 Resp 24 H 08/20/19 07:00 BP 138/68 08/20/19 08:35 Pulse Ox 96 08/20/19 07:10 Weight - Most Recent: 77.564 kg I&O - Last 24 Hours: Intake & Output 08/19/19 08/20/19 08/20/19 22:59 06:59 14:59 Intake Total 960 360 Output Total 850 400 Balance 110 -400 360 Lab Results Last 24 Hours: Laboratory Results - last 24 hr 08/20/19 08/20/19 08/20/19 Range/Units 04:32 04:32 04:32 WBC 9.6 (4.5-11.0) K/uL RBC 3.22 L (3.30-5.50) M/uL Hgb 8.6 L (12.0-15.0) g/dL Hct 29.0 L (36.0-48.0) % MCV 90 (80-98) fL MCH 27 (27-31) pg MCHC 30 L (32-36) % Plt Count 233 (150-400) K/uL PT 25.6 H (9.5-12.0) sec INR 2.50 H (0.80-1.20) Sodium 139 L (140-148) mmol/L Potassium 3.2 L (3.6-5.2) mmol/L Chloride 105 (100-108) mmol/L Carbon Dioxide 27 (21-32) mmol/L Anion Gap 10.2 (5.0-14.0) mmol/L BUN 24 H (7-18) mg/dL Creatinine 2.2 H (0.6-1.0) mg/dL Est Cr Clr Drug Dosing 13.67 mL/min Estimated GFR (MDRD) 21 L (>60) Glucose 110 H (74-106) mg/dL Calcium 7.8 L (8.5-10.1) mg/dL Darshan Results Last 24 Hours: Microbiology 08/18/19 06:00 Urine Culture - Final Urine, Bladder Enterobacter Aerogenes Med Orders - Current: Current Medications Acetaminophen (Tylenol) 650 mg PO Q4H PRN PRN Reason: Pain (Mild 1-3)/fever Albuterol (Proventil Neb Soln) 2.5 mg NEB Q4H PRN PRN Reason: Shortness Of Breath/wheezing Albuterol/Ipratropium (Duoneb 3.0-0.5 Mg/3 Ml) 3 ml NEB QIDRT [facility] Last Admin: 08/20/19 07:09 Dose: 3 ml Aspirin (Halfprin) 81 mg PO DAILY [facility] Last Admin: 08/20/19 08:35 Dose: 81 mg Bumetanide (Bumex) 1 mg PO DAILY [facility] Last Admin: 08/20/19 08:34 Dose: 1 mg Ciprofloxacin (Ciprofloxacin Hcl) 250 mg PO Q24H [facility] Cyanocobalamin (Vitamin B12) 1,000 mcg SL DAILY [facility] Last Admin: 08/20/19 08:36 Dose: 1,000 mcg Glycopyrrolate (Seebri Neohaler) 15.6 mcg IH BIDRT [facility] Last Admin: 08/20/19 07:10 Dose: 1 cap Hydroxychloroquine Sulfate (Plaquenil) 200 mg PO DAILY [facility] Last Admin: 08/20/19 08:35 Dose: 200 mg Lactobacillus Rhamnosus (Culturelle) 1 cap PO BID [facility] Last Admin: 08/20/19 08:34 Dose: 1 cap Levothyroxine Sodium (Synthroid) 88 mcg PO ACBREAKFAST [facility] Last Admin: 08/20/19 08:02 Dose: 88 mcg Lorazepam (Ativan) 0.5 mg IVPUSH Q4H PRN PRN Reason: Nausea/Vomiting Magnesium Hydroxide (Milk Of Magnesia) 30 ml PO Q12H PRN PRN Reason: Constipation Melatonin (Melatonin) 9 mg PO BEDTIME [facility] Last Admin: 08/19/19 20:31 Dose: 9 mg Methyl Salicylate (Icy Hot Cream) 0 gm TOP QID PRN PRN Reason: Pain (mild 1-3) Stop: 08/24/19 23:58 Last Admin: 08/18/19 12:39 Dose: 1 applic Metoprolol Succinate (Toprol Xl) 25 mg PO DAILY [facility] Last Admin: 08/20/19 08:35 Dose: 25 mg Ondansetron HCl (Zofran Odt) 4 mg PO Q6H PRN PRN Reason: Nausea able to take PO Ondansetron HCl (Zofran) 4 mg IV Q6H PRN PRN Reason: Nausea/Vomiting Potassium Chloride (Klor-Con M20) 40 meq PO ONETIME ONE Stop: 08/20/19 10:01 Potassium Chloride (Klor-Con M20) 20 meq PO BID [facility] Fluticasone/Salmeterol (Fluticasone-Salmeterol 232-14 Mcg Powder Inha) 1 puff INH BIDRT [facility] Last Admin: 08/20/19 07:10 Dose: 1 puff Senna/Docusate Sodium (Senna Plus) 1 tab PO BID PRN PRN Reason: Constipation Simvastatin (Zocor) 20 mg PO BEDTIME [facility] Last Admin: 08/19/19 20:31 Dose: 20 mg Tramadol HCl (Ultram) 50 mg PO Q12H PRN PRN Reason: Pain (severe 7-10) Last Admin: 08/18/19 14:52 Dose: 50 mg Warfarin Sodium (Coumadin) 1.25 mg PO DAILY@1300 [facility] Discontinued Medications Diltiazem HCl (Diltiazem) 10 mg IVPUSH ONETIME ONE Stop: 08/18/19 06:41 Last Admin: 08/18/19 07:22 Dose: 10 mg Furosemide (Lasix) 60 mg IVPUSH ONETIME ONE Stop: 08/18/19 06:34 Last Admin: 08/18/19 07:18 Dose: Not Given Furosemide (Lasix) 60 mg IVPUSH ONETIME ONE Stop: 08/18/19 07:31 Last Admin: 08/18/19 07:16 Dose: 60 mg Diltiazem HCl 100 mg/ Sodium (Chloride) 100 mls @ 5 mls/hr IV TITRATE [facility]; Protocol Last Titration: 08/18/19 10:13 Dose: 15 mg/hr, 15 mls/hr Ceftriaxone Sodium 1 gm/ (Sodium Chloride) 50 mls @ 100 mls/hr IV Q24H [facility] Ceftriaxone Sodium 1 gm/ (Sodium Chloride) 50 mls @ 100 mls/hr IV Q24H [facility] Last Admin: 08/20/19 08:04 Dose: 100 mls/hr Diltiazem HCl 100 mg/ Sodium (Chloride) 100 mls @ 5 mls/hr IV TITRATE [facility]; Protocol Last Titration: 08/19/19 11:36 Dose: 5 mg/hr, 5 mls/hr Magnesium Sulfate 2 gm/ Premix 50 mls @ 12.5 mls/hr IV ONETIME ONE Stop: 08/19/19 12:59 Last Admin: 08/19/19 08:54 Dose: 12.5 mls/hr Non-Formulary Medication (Tiotropium [Spiriva Handihaler]) 18 mcg INH DAILY [facility] Non-Formulary Medication (Umeclidinium Brm/Vilanterol Tr [Anoro Ellipta 62.5-25 Mcg]) 1 puff IH DAILY [facility] Potassium Chloride (Klor-Con M20) 40 meq PO ONETIME ONE Stop: 08/19/19 09:01 Last Admin: 08/19/19 08:53 Dose: 40 meq Warfarin Sodium (Coumadin) 2.5 mg PO DAILY@1300 [facility] Last Admin: 08/19/19 13:03 Dose: 2.5 mg - Exam Quality Assessment: Supplemental Oxygen General: Alert, Oriented, Cooperative, No Acute Distress Neck: No JVD Lungs: Normal Respiratory Effort, Crackles (rare left lung base) Cardiovascular: Regular Rate, No Murmurs, Irregular Rhythm GI/Abdominal Exam: Normal Bowel Sounds, Soft, No Distention Extremities: No Pedal Edema Psy/Mental Status: Alert, Normal Affect Sepsis Event Note - Evaluation Sepsis Screening Result: No Definite Risk - Focused Exam Vital Signs: Vital Signs Temp Pulse Pulse Resp BP BP Pulse Ox 08/20/19 08:35 91 138/68 08/20/19 07:13 98 08/20/19 07:10 81 08/20/19 07:00 36.9 C 98 24 H 138/68 95 08/20/19 05:00 36.4 C 17 127/57 L 94 L 08/20/19 03:00 21 H 106/45 L 96 08/20/19 01:00 18 108/46 L 94 L 08/19/19 23:00 85 21 H 106/57 L 95 Pulse Ox 08/20/19 08:35 08/20/19 07:13 08/20/19 07:10 96 08/20/19 07:00 08/20/19 05:00 08/20/19 03:00 08/20/19 01:00 08/19/19 23:00 Date Exam was Performed: 08/20/19 Time Exam was Performed: 13:48 - Problem List & Annotations (1) CHF (congestive heart failure) SNOMED Code(s): 99926604 Code(s): I50.9 - HEART FAILURE, UNSPECIFIED Status: Acute Current Visit: Yes Qualifiers: Heart failure type: diastolic Heart failure chronicity: acute on chronic Qualified Code(s): I50.33 - Acute on chronic diastolic (congestive) heart failure (2) Atrial fibrillation with rapid ventricular response SNOMED Code(s): 476144483220072 Code(s): I48.91 - UNSPECIFIED ATRIAL FIBRILLATION Status: Acute Current Visit: Yes (3) Acute kidney injury SNOMED Code(s): 64459734, 06304843 Code(s): N17.9 - ACUTE KIDNEY FAILURE, UNSPECIFIED Status: Resolved Current Visit: No (4) COPD (chronic obstructive pulmonary disease) SNOMED Code(s): 43492426 Code(s): J44.9 - CHRONIC OBSTRUCTIVE PULMONARY DISEASE, UNSPECIFIED Status : Chronic Current Visit: Yes Qualifiers: Emphysema type: unspecified (5) Acute cystitis with hematuria SNOMED Code(s): 92705765, 28899308 Code(s): N30.01 - ACUTE CYSTITIS WITH HEMATURIA Status: Acute Current Visit: No (6) Rheumatoid arthritis SNOMED Code(s): 90024320 Code(s): M06.9 - RHEUMATOID ARTHRITIS, UNSPECIFIED Status: Chronic Current Visit: No Qualifiers: Rheumatoid arthritis location: multiple sites Rheumatoid factor presence: unspecified presence Qualified Code(s): M06.9 - Rheumatoid arthritis, unspecified - Problem List Review Problem List Initiated/Reviewed/Updated: Yes - My Orders Last 24 Hours: My Active Orders 08/19/19 09:00 Bumetanide [Bumex] 1 mg PO DAILY 08/20/19 09:38 Transfer Patient (Change bed) [ADT] Routine 08/20/19 09:40 Discontinue Telemetry Monitoring [Cardiac Monitoring Discontinue] [RC] Click to Edit 08/20/19 10:00 Ciprofloxacin [Ciprofloxacin HCl] 250 mg PO Q24H Potassium Chloride [Klor-Con M20] 40 meq PO ONETIME ONE 08/20/19 13:00 Warfarin [Coumadin] 1.25 mg PO DAILY@1300 08/20/19 21:00 Potassium Chloride [Klor-Con M20] 20 meq PO BID 08/21/19 05:00 BASIC METABOLIC PANEL,BMP [CHEM] Timed INR,PT,PROTHROMBIN TIME [COAG] Timed - Plan Plan:: ASSESSMENT AND PLAN - Acute on chronic diastolic congestive heart failure-significant improvement after just 1 dose of IV diuretics. Volume status is appropriate and heart failure is compensated. -Continue daily diuretic -Continue beta-ellyn -Supplement oxygen Atrial fibrillation with rapid ventricular response-rate control acceptable with oral beta-ellyn at this time. -Continue beta-ellyn, consider dose increase if heart rate rises -Continue warfarin Acute cystitis without hematuria-urinary tract infection was probably the inciting event for the above issues. Culture grew out Enterobacter. -Antibiotic coverage with ciprofloxacin every 24 hours -Follow-up urine culture Acute on chronic kidney disease-creatinine improving since admission but is not back to baseline. -Labs in the morning Hypokalemia-potassium remains on the low side and will require additional supplementation. -Supplement potassium this morning -Start twice daily supplement this evening -Repeat tomorrow morning COPD, oxygen dependent-no evidence for infection or acute exacerbation. -Continue home medications and nebulizers Maintenance issues - - DVT prophylaxis -warfarin - GI prophylaxis -not indicated - Nutrition -low-sodium Disposition -I would anticipate discharge home with home care after the hospital stay Primary care physician -Dr Sundeep Teran M.D.
[2019-08-20] MEDS ORDERED: Potassium Chloride 20 MEQ Tab.ER PO ONE (10:00)
[2019-08-20] MEDS: Ciprofloxacin 500 MG Tab PO SCH (10:44)
[2019-08-20] MEDS ORDERED: Warfarin 2.5 MG Tab PO SCH (13:00)
[2019-08-20] MEDS: Potassium Chloride 20 MEQ Tab.ER PO SCH (21:21)
[2019-08-20] MEDS: Simvastatin 20 MG Tab PO SCH (21:21)
[2019-08-20] MEDS: Melatonin 3 MG Tab PO SCH (21:21)
[2019-08-21] MEDS: Albuterol/Ipratropium 3.0-0.5 MG/3 ML Neb Soln NEB SCH ×2 (07:29→10:54)
[2019-08-21] MEDS: Glycopyrrolate 15.6 MCG Cap.W.Dev Kit of 6 IH SCH (07:29)
[2019-08-21] MEDS: Fluticasone-Salmeterol 232-14 MCG Powder Inhalent INH SCH (07:29)
[2019-08-21] MEDS: Levothyroxine 88 MCG Tab PO SCH (07:48)
[2019-08-21] MEDS: Ciprofloxacin 500 MG Tab PO SCH (09:28)
[2019-08-21] MEDS: Aspirin 81 MG Tab.EC PO SCH (09:28)
[2019-08-21] MEDS: Bumetanide 1 MG Tab PO SCH (09:29)
[2019-08-21] MEDS: Hydroxychloroquine 200 MG Tab PO SCH (09:30)
[2019-08-21] MEDS: Potassium Chloride 20 MEQ Tab.ER PO SCH (09:30)
[2019-08-21] MEDS: Lactobacillus Rhamnosus GG (Probiotic) Cap PO SCH (09:30)
[2019-08-21] MEDS: Metoprolol Succinate 25 MG Tab.ER PO SCH (09:30)
[2019-08-21 09:31] VITALS: BP 131/93
[2019-08-21] MEDS: Cyanocobalamin (Vitamin B12) 1,000 MCG Tab SL SCH (09:31)
[2019-08-21 10:55] VITALS: PULSE 101
--- NOTE | 2019-08-21 11:14 | PCM.DCSUM1 ---
Discharge Summary - Hospital Course Brief History: 84-year-old female with history of chronic diastolic congestive heart failure, chronic atrial fibrillation, oxygen dependent COPD and stage IV kidney disease who presented with weakness and shortness of breath. She was admitted for management of congestive heart failure, rapid atrial fibrillation, acute on chronic kidney injury and urinary tract infection. Diagnosis: Stroke: No - Discharge Data Discharge Date: 08/21/19 Discharge Disposition: Home, W Home Health Agency 06 Condition: Good - Referral to Home Health Date of Face to Face Encounter: 08/21/19 Reason for Homebound Status: Acute on chronic weakness complicating dyspnea with exertion because of oxygen dependent COPD Primary Care Physician: PCP None Skilled Need: Nursing, Occupational Therapy, physical therapy and a home health aide - Discharge Diagnosis/Problem(s) (1) CHF (congestive heart failure) SNOMED Code(s): 94571620 ICD Code: I50.9 - HEART FAILURE, UNSPECIFIED Status: Acute Qualifiers: Heart failure type: diastolic Heart failure chronicity: acute on chronic Qualified Code(s): I50.33 - Acute on chronic diastolic (congestive) heart failure (2) Atrial fibrillation with rapid ventricular response SNOMED Code(s): 677358379501467 ICD Code: I48.91 - UNSPECIFIED ATRIAL FIBRILLATION Status: Acute (3) Acute kidney injury SNOMED Code(s): 73410698, 56510531 ICD Code: N17.9 - ACUTE KIDNEY FAILURE, UNSPECIFIED Status: Resolved (4) COPD (chronic obstructive pulmonary disease) SNOMED Code(s): 35356018 ICD Code: J44.9 - CHRONIC OBSTRUCTIVE PULMONARY DISEASE, UNSPECIFIED Status : Chronic Qualifiers: Emphysema type: unspecified (5) Acute cystitis with hematuria SNOMED Code(s): 78478584, 46480356 ICD Code: N30.01 - ACUTE CYSTITIS WITH HEMATURIA Status: Acute (6) Rheumatoid arthritis SNOMED Code(s): 12132831 ICD Code: M06.9 - RHEUMATOID ARTHRITIS, UNSPECIFIED Status: Chronic Qualifiers: Rheumatoid arthritis location: multiple sites Rheumatoid factor presence: unspecified presence Qualified Code(s): M06.9 - Rheumatoid arthritis, unspecified - Patient Summary/Data Consults: Consultations 08/18/19 10:11 PT Evaluation and Treatment [CONS] Routine Please Evaluate and Treat. PT Reason for Consult: Strengthening This query below is only for informational purposes and is not editable. Hospital Course: Veronika presented to the emergency room with several days of progressive weakness and shortness of breath. On the morning of presentation she had a significant decline in her respiratory status. Upon arrival to the emergency room she was in respiratory distress. She was in rapid atrial fibrillation and had evidence for congestive heart failure. She received IV furosemide in the emergency room. Additional work-up revealed acute on chronic kidney injury as well as evidence for a urinary tract infection and hyperkalemia. She was admitted to the intensive care unit on a diltiazem infusion which we used to manage her rapid atrial fibrillation. From a respiratory standpoint we saw fairly quick improvement following the dose of IV furosemide. Her work of breathing decreased fairly quickly. With the diltiazem infusion we were able to achieve good rate control. She did remain in atrial fibrillation. Antibiotic coverage for the urinary tract infection was with ceftriaxone. After she diuresed and we had a couple of doses of antibiotics on board we were able to slowly decrease the diltiazem infusion and then eventually discontinue it with ongoing good rate control. She has not had further evidence for volume overload and her JVD has been normal for the past several days. Her urine culture did grow out Citrobacter and we transitioned her to ciprofloxacin for antibiotic coverage. We have seen an improvement in her kidney function and she is now back down to her more recent baseline in stage IV. Symptomatically she is doing much better. Her dyspnea is back to baseline. She is not having any fevers. Heart rate has been controlled. Strength and appetite are improving. She feels well enough to go home at this time. She was interested in home care to help ease her transition home. She will be getting antibiotics for 3 more days after hospital discharge to complete a total of 5 days on the ciprofloxacin. - Patient Instructions Diet: Heart Healthy Diet Activity: As Tolerated Showering/Bathing: May Shower Notify Provider of: Fever, Increased Pain Other/Special Instructions: 1. You were in the hospital for management of congestive heart failure and rapid atrial fibrillation that were set off by a urinary tract infection. Your condition has improved with antibiotic therapy, diuretics and rate control of the atrial fibrillation. We are back to your usual medications with the exception of the antibiotic for the urinary tract infection. I would recommend ongoing antibiotic therapy with ciprofloxacin. Please take 250 mg once daily at 10 AM for 3 more doses. Your first dose outside of the hospital will be due tomorrow (Friday). 2. Continue your usual home medications as previously prescribed. 3. Follow up as scheduled with primary care and Dr. Galvez. 4. I have placed a referral to home health care. They will help ease your transition home by providing nursing as well as physical therapy services. 5. Check INR on 08/23 - Discharge Plan *PRESCRIPTION DRUG MONITORING PROGRAM REVIEWED*: Not Applicable *COPY OF PRESCRIPTION DRUG MONITORING REPORT IN PATIENT GERARDO: Not Applicable Prescriptions/Med Rec: Ciprofloxacin HCl 250 mg PO Q24H #3 tablet Home Medications: Home Meds Simvastatin 20 mg PO BEDTIME 03/15/13 [History] traMADol [Ultram] 50 mg PO Q12H PRN 03/15/13 [History] Omeprazole 20 mg PO ACBREAKFAST 06/17/13 [History] Aspirin [Adult Low Dose Aspirin EC] 81 mg PO DAILY 08/17/13 [History] Nystatin/Triamcinolone Crm [Mycolog Crm] 1 applic TOP BID 08/17/13 [History] Nitroglycerin 0.4 mg SL ASDIRECTED PRN 11/29/15 [History] Albuterol/Ipratropium [DuoNeb 3.0-0.5 MG/3 ML] 3 ml INH Q4H PRN 11/19/17 [ History] Potassium Chloride 2 cap PO BID 11/19/17 [History] Warfarin [Coumadin] 2.5 mg PO ASDIRECTED 11/19/17 [History] Bumetanide [Bumex] 1 mg PO DAILY 11/24/17 [History] Montelukast [Singulair] 10 mg PO BEDTIME 03/04/18 [History] Levothyroxine Sodium [Synthroid] 100 mcg PO DAILY 10/21/18 [History] Metoprolol Succinate 25 mg PO DAILY #30 tab.er.24h 10/23/18 [Rx] Albuterol [Proventil Neb Soln] 3 ml NEB Q4H PRN 08/04/19 [History] Cyanocobalamin (Vitamin B-12) [Vitamin B-12] 1,000 mcg SL DAILY 08/04/19 [ History] Fluticasone/Salmeterol [Advair 500-50] 1 puff INH BID 08/04/19 [History] Hydroxychloroquine Sulfate [Plaquenil] 200 mg PO DAILY 08/04/19 [History] Magnesium Citrate 125 mg PO TID 08/04/19 [History] Menthol/Methyl Salicylate [Thera-Gesic Analgesic Cream] 1 applic TP ASDIRECTED PRN 08/04/19 [History] Multivitamin-Min/Iron/FA/Vit K [Multi-Day Plus Minerals Tablet] 1 each PO DAILY 08/04/19 [History] Umeclidinium Jerome [Incruse Ellipta*] 1 inhalation IH DAILY 08/18/19 [History] Ciprofloxacin HCl 250 mg PO Q24H #3 tablet 08/21/19 [Rx] Oxygen Therapy Mode: Nasal Cannula Oxygen Flow Rate (L/min): 2 Patient Handouts: Urinary Tract Infection, Adult, [id number] Referrals: Sundeep Gleason MD [Physician] - 08/26/19 11:00 am (Pl) Zeeshan Galvez MD [Physician] - 08/26/19 10:00 am - Discharge Summary/Plan Comment DC Time >30 min.: Yes (35-setting up home care ) - Patient Data Vitals - Most Recent: Last Vital Signs Temp 37.0 C 08/21/19 07:00 Pulse 101 H 08/21/19 10:55 Resp 18 08/21/19 07:00 BP 131/93 H 08/21/19 09:30 Pulse Ox 99 08/21/19 07:00 Weight - Most Recent: 77.564 kg I&O - Last 24 hours: Intake & Output 08/20/19 08/21/19 08/21/19 22:59 06:59 14:59 Intake Total 600 300 Balance 600 300 Lab Results - Last 24 hrs: Laboratory Results - last 24 hr 08/21/19 08/21/19 Range/Units 05:30 05:30 PT 21.4 H (9.5-12.0) sec INR 2.06 H (0.80-1.20) Sodium 141 (140-148) mmol/L Potassium 3.6 (3.6-5.2) mmol/L Chloride 107 (100-108) mmol/L Carbon Dioxide 24 (21-32) mmol/L Anion Gap 10.5 (5.0-14.0) mmol/L BUN 24 H (7-18) mg/dL Creatinine 1.9 H (0.6-1.0) mg/dL Est Cr Clr Drug Dosing 15.83 mL/min Estimated GFR (MDRD) 25 L (>60) Glucose 103 (74-106) mg/dL Calcium 8.1 L (8.5-10.1) mg/dL SCAR Results - Last 24 hrs: Microbiology 08/18/19 06:00 Urine Culture - Final Urine, Bladder Enterobacter Aerogenes Med Orders - Current: Current Medications Acetaminophen (Tylenol) 650 mg PO Q4H PRN PRN Reason: Pain (Mild 1-3)/fever Albuterol (Proventil Neb Soln) 2.5 mg NEB Q4H PRN PRN Reason: Shortness Of Breath/wheezing Albuterol/Ipratropium (Duoneb 3.0-0.5 Mg/3 Ml) 3 ml NEB QIDRT [facility] Last Admin: 08/21/19 10:54 Dose: 3 ml Aspirin (Halfprin) 81 mg PO DAILY [facility] Last Admin: 08/21/19 09:28 Dose: 81 mg Bumetanide (Bumex) 1 mg PO DAILY [facility] Last Admin: 08/21/19 09:29 Dose: 1 mg Ciprofloxacin (Ciprofloxacin Hcl) 250 mg PO Q24H [facility] Last Admin: 08/21/19 09:28 Dose: 250 mg Cyanocobalamin (Vitamin B12) 1,000 mcg SL DAILY [facility] Last Admin: 08/21/19 09:31 Dose: 1,000 mcg Glycopyrrolate (Seebri Neohaler) 15.6 mcg IH BIDRT [facility] Last Admin: 08/21/19 07:29 Dose: 1 cap Hydroxychloroquine Sulfate (Plaquenil) 200 mg PO DAILY [facility] Last Admin: 08/21/19 09:30 Dose: 200 mg Lactobacillus Rhamnosus (Culturelle) 1 cap PO BID [facility] Last Admin: 08/21/19 09:30 Dose: 1 cap Levothyroxine Sodium (Synthroid) 88 mcg PO ACBREAKFAST [facility] Last Admin: 08/21/19 07:48 Dose: 88 mcg Lorazepam (Ativan) 0.5 mg IVPUSH Q4H PRN PRN Reason: Nausea/Vomiting Magnesium Hydroxide (Milk Of Magnesia) 30 ml PO Q12H PRN PRN Reason: Constipation Melatonin (Melatonin) 9 mg PO BEDTIME [facility] Last Admin: 08/20/19 21:21 Dose: 9 mg Methyl Salicylate (Icy Hot Cream) 0 gm TOP QID PRN PRN Reason: Pain (mild 1-3) Stop: 08/24/19 23:58 Last Admin: 08/18/19 12:39 Dose: 1 applic Metoprolol Succinate (Toprol Xl) 25 mg PO DAILY [facility] Last Admin: 08/21/19 09:30 Dose: 25 mg Ondansetron HCl (Zofran Odt) 4 mg PO Q6H PRN PRN Reason: Nausea able to take PO Ondansetron HCl (Zofran) 4 mg IV Q6H PRN PRN Reason: Nausea/Vomiting Potassium Chloride (Klor-Con M20) 20 meq PO BID [facility] Last Admin: 08/21/19 09:30 Dose: 20 meq Fluticasone/Salmeterol (Fluticasone-Salmeterol 232-14 Mcg Powder Inha) 1 puff INH BIDRT [facility] Last Admin: 08/21/19 07:29 Dose: 1 puff Senna/Docusate Sodium (Senna Plus) 1 tab PO BID PRN PRN Reason: Constipation Simvastatin (Zocor) 20 mg PO BEDTIME [facility] Last Admin: 08/20/19 21:21 Dose: 20 mg Tramadol HCl (Ultram) 50 mg PO Q12H PRN PRN Reason: Pain (severe 7-10) Last Admin: 08/18/19 14:52 Dose: 50 mg Warfarin Sodium (Coumadin) 1.25 mg PO DAILY@1300 [facility] Last Admin: 08/20/19 14:36 Dose: 1.25 mg Discontinued Medications Diltiazem HCl (Diltiazem) 10 mg IVPUSH ONETIME ONE Stop: 08/18/19 06:41 Last Admin: 08/18/19 07:22 Dose: 10 mg Furosemide (Lasix) 60 mg IVPUSH ONETIME ONE Stop: 08/18/19 06:34 Last Admin: 08/18/19 07:18 Dose: Not Given Furosemide (Lasix) 60 mg IVPUSH ONETIME ONE Stop: 08/18/19 07:31 Last Admin: 08/18/19 07:16 Dose: 60 mg Diltiazem HCl 100 mg/ Sodium (Chloride) 100 mls @ 5 mls/hr IV TITRATE [facility], [facility]; Protocol Last Titration: 08/18/19 10:13 Dose: 15 mg/hr, 15 mls/hr Ceftriaxone Sodium 1 gm/ (Sodium Chloride) 50 mls @ 100 mls/hr IV Q24H PAUL Ceftriaxone Sodium 1 gm/ (Sodium Chloride) 50 mls @ 100 mls/hr IV Q24H PAUL Last Admin: 08/20/19 08:04 Dose: 100 mls/hr Diltiazem HCl 100 mg/ Sodium (Chloride) 100 mls @ 5 mls/hr IV TITRATE PAUL; Protocol Last Titration: 08/19/19 11:36 Dose: 5 mg/hr, 5 mls/hr Magnesium Sulfate 2 gm/ Premix 50 mls @ 12.5 mls/hr IV ONETIME ONE Stop: 08/19/19 12:59 Last Admin: 08/19/19 08:54 Dose: 12.5 mls/hr Non-Formulary Medication (Tiotropium [Spiriva Handihaler]) 18 mcg INH DAILY [facility] Non-Formulary Medication (Umeclidinium Brm/Vilanterol Tr [Anoro Ellipta 62.5-25 Mcg]) 1 puff IH DAILY [facility] Potassium Chloride (Klor-Con M20) 40 meq PO ONETIME ONE Stop: 08/19/19 09:01 Last Admin: 08/19/19 08:53 Dose: 40 meq Potassium Chloride (Klor-Con M20) 40 meq PO ONETIME ONE Stop: 08/20/19 10:01 Last Admin: 08/20/19 10:43 Dose: 40 meq Warfarin Sodium (Coumadin) 2.5 mg PO DAILY@1300 PAUL Last Admin: 08/19/19 13:03 Dose: 2.5 mg
== END 2019-08-21 11:45 | disposition home health service (06) | DRG 291 ==
LOC: JP.ED 05:45 → JP.ICU 08:50 → JP.MS 08-20 14:33
PROVIDERS: ADMIT Internal Medicine; ATTEND Internal Medicine
DX: I13.0 Hypertensive heart and chronic kidney disease with heart failure and stage 1 through stage 4 chronic kidney disease, or unspecified chronic kidney disease (principal); I50.33 Acute on chronic diastolic (congestive) heart failure; N17.9 Acute kidney failure, unspecified; I48.20 Chronic atrial fibrillation, unspecified; N30.01 Acute cystitis with hematuria; N18.4 Chronic kidney disease, stage 4 (severe); I11.0 Hypertensive heart disease with heart failure; I50.9 Heart failure, unspecified; J44.9 Chronic obstructive pulmonary disease, unspecified; I48.91 Unspecified atrial fibrillation; E78.00 Pure hypercholesterolemia, unspecified; G47.30 Sleep apnea, unspecified; Z95.0 Presence of cardiac pacemaker; H54.7 Unspecified visual loss; H91.90 Unspecified hearing loss, unspecified ear; K21.9 Gastro-esophageal reflux disease without esophagitis; K44.9 Diaphragmatic hernia without obstruction or gangrene; G43.909 Migraine, unspecified, not intractable, without status migrainosus; R32 Unspecified urinary incontinence; M06.9 Rheumatoid arthritis, unspecified; D64.9 Anemia, unspecified; G89.29 Other chronic pain; Z87.891 Personal history of nicotine dependence; E87.6 Hypokalemia; M54.9 Dorsalgia, unspecified; E03.9 Hypothyroidism, unspecified; E66.9 Obesity, unspecified; Z86.73 Personal history of transient ischemic attack (TIA), and cerebral infarction without residual deficits; Z98.49 Cataract extraction status, unspecified eye; Z95.5 Presence of coronary angioplasty implant and graft; Z90.49 Acquired absence of other specified parts of digestive tract; Z90.710 Acquired absence of both cervix and uterus; Z88.2 Allergy status to sulfonamides; Z68.37 Body mass index [BMI] 37.0-37.9, adult; Z96.652 Presence of left artificial knee joint; Z88.1 Allergy status to other antibiotic agents; Z87.440 Personal history of urinary (tract) infections; Z88.5 Allergy status to narcotic agent; Z88.0 Allergy status to penicillin; Z88.8 Allergy status to other drugs, medicaments and biological substances; Z91.048 Other nonmedicinal substance allergy status; Z79.01 Long term (current) use of anticoagulants; Z79.82 Long term (current) use of aspirin; Z79.890 Hormone replacement therapy; Z79.899 Other long term (current) drug therapy
CPT/HCPCS: 36415; 36600; 71045; 80053; 81001; 82803; 83880; 84439; 84443; 84484; 85025; 85610; 87086; 87088; 87186; 93005; 93010; 96365; 96367; 96375; 99285; J0696; J1940; J3490 ×2; J7050 ×2; 80048; 83735; 85027; 94640; 97110-GP; 97162-GP; 99284; A9270-GY; J3475; J7620-GY

== ENCOUNTER 2019-10-06 11:06 | Inpatient (IN) | payer MEDICARE ==
[2019-10-06] MEDS ORDERED: Sodium Chloride 0.9% 10 ML Syringe FLUSH PRN ×2 (11:13→13:31)
[2019-10-06] MEDS ORDERED: Diltiazem 25 MG/5 ML SDV IVPUSH ONE (11:13)
[2019-10-06] MEDS ORDERED: Diltiazem 100 MG in Sodium Chloride 0.9% 100 ML IV SCH (11:15)
[2019-10-06] MEDS ORDERED: Sodium Chloride 0.9% 1,000 ML IV SCH ×2 (11:15→13:31)
--- NOTE | 2019-10-06 11:48 | EDM.PDOC ---
ED HPI GENERAL MEDICAL PROBLEM - General Chief Complaint: Cardiovascular Problem Stated Complaint: MEDICAL Time Seen by Provider: 10/06/19 11:30 Source of Information: Reports: Patient, RN Notes Reviewed History Limitations: Reports: No Limitations - History of Present Illness INITIAL COMMENTS - FREE TEXT/NARRATIVE: patient presents to the ED with c/o rapid heart rate, chest pressure, and shortness of breath, especially with activity. This was first noticed 3 days ago. She has a bout of afib that she states was a few weeks ago. She was hospitalized in july here at our facility. Veronika states that a kidney infection preceded that bout of afib. She does state that she has darker urine recently. Denies any fevers, chills. Her home is A/C. Her ankles are quite swollen but she states that they are improved over the last few days. Duration: Day(s): (3) Location: Reports: Chest Worsens with: Reports: Movement Associated Symptoms: Reports: Other (chest pressure). Denies: Fever/Chills - Related Data Allergies Allergy/AdvReac Type Severity Reaction Status Date / Time adhesive tape Allergy Other Verified 10/06/19 11:10 codeine Allergy Hives Verified 10/06/19 11:10 doxepin [Doxepin] Allergy Hives Verified 10/06/19 11:10 etodolac [From Lodine] Allergy Cannot Verified 10/06/19 11:10 Remember fosinopril sodium Allergy Hives Verified 10/06/19 11:10 [From Monopril] heparin Allergy Cannot Verified 10/06/19 11:10 Remember methylprednisolone Allergy Cannot Verified 10/06/19 11:10 [From Medrol] Remember pantoprazole [From Protonix] Allergy Cannot Verified 10/06/19 11:10 Remember Penicillins Allergy Hives Verified 10/06/19 11:10 procaine HCl [From Novocain] Allergy Hives Verified 10/06/19 11:10 Sulfa (Sulfonamide Allergy Hives Verified 10/06/19 11:10 Antibiotics) amitriptyline HCl AdvReac Hallucinati Verified 10/06/19 11:10 [From Elavil] ons amlodipine besylate AdvReac Blisters Verified 10/06/19 11:10 [From Norvasc] cephalexin [From Keflex] AdvReac Nausea Verified 10/06/19 11:10 nortriptyline AdvReac Hallucinati Verified 10/06/19 11:10 ons quinapril HCl [From Accupril] AdvReac Hallucinati Verified 10/06/19 11:10 ons Home Meds: Home Meds Simvastatin 20 mg PO BEDTIME 03/15/13 [History] traMADol [Ultram] 50 mg PO Q12H PRN 03/15/13 [History] Omeprazole 20 mg PO ACBREAKFAST 06/17/13 [History] Aspirin [Adult Low Dose Aspirin EC] 81 mg PO DAILY 08/17/13 [History] Nystatin/Triamcinolone Crm [Mycolog Crm] 1 applic TOP BID 08/17/13 [History] Nitroglycerin 0.4 mg SL ASDIRECTED PRN 11/29/15 [History] Albuterol/Ipratropium [DuoNeb 3.0-0.5 MG/3 ML] 3 ml INH Q4H PRN 11/19/17 [History] Potassium Chloride 2 cap PO BID 11/19/17 [History] Warfarin [Coumadin] 2.5 mg PO BEDTIME 11/19/17 [History] Bumetanide [Bumex] 1 mg PO DAILY 11/24/17 [History] Montelukast [Singulair] 10 mg PO BEDTIME 03/04/18 [History] Levothyroxine Sodium [Synthroid] 100 mcg PO DAILY 10/21/18 [History] Metoprolol Succinate 25 mg PO DAILY #30 tab.er.24h 10/23/18 [Rx] Cyanocobalamin (Vitamin B-12) [Vitamin B-12] 1,000 mcg SL DAILY 08/04/19 [History] Fluticasone/Salmeterol [Advair 500-50] 1 puff INH BID 08/04/19 [History] Hydroxychloroquine Sulfate [Plaquenil] 200 mg PO DAILY 08/04/19 [History] Magnesium Citrate 125 mg PO TID 08/04/19 [History] Menthol/Methyl Salicylate [Thera-Gesic Analgesic Cream] 1 applic TP ASDIRECTED PRN 08/04/19 [History] Multivitamin-Min/Iron/FA/Vit K [Multi-Day Plus Minerals Tablet] 1 each PO DAILY 08/04/19 [History] Tiotropium [Spiriva Handihaler] 2 puff INH DAILY 10/06/19 [History] Past Medical History HEENT History: Reports: Cataract, Hard of Hearing, Impaired Vision Cardiovascular History: Reports: Afib, High Cholesterol, Hypertension, Pacemaker Other Cardiovascular History: defibriblilation Respiratory History: Reports: COPD, Sleep Apnea, SOB, Other (See Below) Other Respiratory History: Cpap and home O2 2L prn Gastrointestinal History: Reports: Bowel Obstruction, GERD, Hiatal Hernia Genitourinary History: Reports: Urinary Incontinence, UTI, Recurrent DESIGN ANALYST History: Reports: , Other (See Below) Other DESIGN ANALYST History: hemorrhaging Musculoskeletal History: Reports: Back Pain, Chronic, RA Other Musculoskeletal History: Torn rotator cuff Neurological History: Reports: CVA, Migraines Endocrine/Metabolic History: Reports: Hypothyroidism, Obesity/BMI 30+ Hematologic History: Reports: Anemia, Blood Transfusion(s) - Infectious Disease History Infectious Disease History: Reports: Chicken Pox, Measles, Mumps, Shingles - Past Surgical History Head Surgeries/Procedures: Reports: None HEENT Surgical History: Reports: Cataract Surgery Cardiovascular Surgical History: Reports: Coronary Artery Stent Respiratory Surgical History: Reports: None GI Surgical History: Reports: Appendectomy, Cholecystectomy, Hernia Repair/ Other, Small Bowel Other GI Surgeries/Procedures: removal of mesh 2016 Female Surgical History: Reports: D&C, Hysterectomy, Salpingo-Oophorectomy Neurological Surgical History: Reports: C-Spine, Other (See Below) Musculoskeletal Surgical History: Reports: Knee Replacement, Other (See Below) Other Musculoskeletal Surgeries/Procedures:: L knee replaced Social & Family History - Family History Family Medical History: Noncontributory HEENT: Reports: Cataract Cardiac: Reports: Hypertension Respiratory: Reports: Asthma, COPD Other Respiratory Family Hisory: emphysema GI: Reports: Cholelithiasis, Colon Polyps OBGYN: Reports: Musculoskeletal: Reports: Arthritis Psychiatric: Reports: Anxiety, Depression Endocrine/Metabolic: Reports: Hypothyroidism Oncologic: Reports: Skin - Tobacco Use Smoking Status *Q: Never Smoker - Caffeine Use Caffeine Use: Reports: Tea ED ROS GENERAL - Review of Systems Review Of Systems: See Below Constitutional: Reports: Fatigue, Decreased Appetite. Denies: Fever, Chills HEENT: Reports: No Symptoms Respiratory: Reports: Shortness of Breath Cardiovascular: Reports: Dyspnea on Exertion, Palpitations Endocrine: Reports: No Symptoms GI/Abdominal: Reports: Decreased Appetite : Reports: Other (dark urine) Musculoskeletal: Reports: No Symptoms Skin: Reports: No Symptoms Neurological: Reports: No Symptoms Psychiatric: Reports: No Symptoms Hematologic/Lymphatic: Reports: No Symptoms ED EXAM, GENERAL - Physical Exam Exam: See Below Exam Limited By: No Limitations General Appearance: Alert, Mild Distress Eye Exam: Bilateral Eye: PERRL Ears: Normal External Exam, Normal Canal, Normal TMs Ear Exam: Bilateral Ear: Canal Normal, TM normal Nose: Normal Inspection, Normal Mucosa Throat/Mouth: Normal Inspection, Normal Oropharynx Head: Atraumatic, Normocephalic Neck: Normal Inspection, Supple, Non-Tender. No: Carotid Bruit Respiratory/Chest: Lungs Clear, Normal Breath Sounds, Chest Non-Tender Cardiovascular: No Murmur, Other (in atrial fibrillation. edema to bilat LE) Peripheral Pulses: 1+: Radial (L), Radial (R), 2+: Dorsalis Pedis (L), Dorsalis Pedis (R) GI/Abdominal: Soft, Tender (chronic tenderness due to mesh placement), Abnormal Bowel Sounds (hypoactive) (Female) Exam: Deferred Rectal (Female) Exam: Deferred Back Exam: Normal Inspection, Other (chronic back pain) Extremities: Normal Capillary Refill Neurological: Alert, Oriented, Normal Cognition Skin Exam: Warm, Dry Lymphatic: No Adenopathy Course - Vital Signs Last Recorded V/S: Last Vital Signs Temp 96.8 F L 10/06/19 11:09 Pulse 102 H 10/06/19 12:26 Resp 20 10/06/19 12:26 BP 144/83 H 10/06/19 12:26 Pulse Ox 96 10/06/19 12:26 - Orders/Labs/Meds Orders: Active Orders 24 hr Category Date Time Status Patient Status Manage Transfer [TRANSFER] Routine ADT 10/06/19 12:47 Active Cardiac Monitoring [RC] .As Directed Care 10/06/19 11:13 Active EKG Documentation Completion [RC] ASDIRECTED Care 10/06/19 11:14 Active Chest 1V Frontal [CR] Stat Exams 10/06/19 11:12 Taken CULTURE URINE [RM] Stat Lab 10/06/19 12:13 Received Diltiazem [Cardizem] 100 mg Med 10/06/19 11:15 Active Sodium Chloride 0.9% [Normal Saline] 100 ml IV TITRATE Sodium Chloride 0.9% [Normal Saline] 1,000 ml Med 10/06/19 11:15 Active IV ASDIRECTED Sodium Chloride 0.9% [Saline Flush] Med 10/06/19 11:13 Active 10 ml FLUSH ASDIRECTED PRN Saline Lock Insert [OM.PC] Routine Oth 10/06/19 11:13 Ordered Resuscitation Status Routine Resus Stat 10/06/19 12:51 Ordered EKG 12 Lead [EK] Routine Ther 10/06/19 11:13 Ordered Medication Orders Diltiazem HCl 100 mg/ Sodium (Chloride) 100 mls @ 5 mls/hr IV TITRATE PAUL; Protocol Last Admin: 10/06/19 11:35 Dose: 5 mg/hr, 5 mls/hr Documented by: JARRED Sodium Chloride (Normal Saline) 1,000 mls @ 300 mls/hr IV ASDIRECTED PAUL Last Admin: 10/06/19 11:25 Dose: 100 mls/hr Documented by: JARRED Sodium Chloride (Saline Flush) 10 ml FLUSH ASDIRECTED PRN PRN Reason: Keep Vein Open Last Admin: 10/06/19 12:17 Dose: 10 ml Documented by: JOIE Labs: Laboratory Tests 10/06/19 10/06/19 10/06/19 Range/Units 11:12 11:12 11:20 WBC 10.6 (4.5-11.0) K/uL RBC 3.89 (3.30-5.50) M/uL Hgb 9.8 L (12.0-15.0) g/dL Hct 32.9 L (36.0-48.0) % MCV 85 (80-98) fL MCH 25 L (27-31) pg MCHC 30 L (32-36) % Plt Count 286 (150-400) K/uL Neut % (Auto) 71 H (36-66) % Lymph % (Auto) 18 L (24-44) % [place] % (Auto) 10 H (2-6) % Eos % (Auto) 0 L (2-4) % Baso % (Auto) 1 (0-1) % PT 29.6 H (9.5-12.0) sec INR 2.91 H (0.80-1.20) Sodium 142 (140-148) mmol/L Potassium 5.5 H (3.6-5.2) mmol/L Chloride 109 H (100-108) mmol/L Carbon Dioxide 22 (21-32) mmol/L Anion Gap 16.5 H (5.0-14.0) mmol/L BUN 23 H (7-18) mg/dL Creatinine 3.0 H D (0.6-1.0) mg/dL Est Cr Clr Drug Dosing 10.03 mL/min Estimated GFR (MDRD) 15 L (>60) Glucose 96 (74-106) mg/dL Calcium 9.0 (8.5-10.1) mg/dL Total Bilirubin 0.9 (0.2-1.0) mg/dL AST 73 H D (15-37) U/L ALT 45 (12-78) U/L Alkaline Phosphatase 81 (46-116) U/L Troponin I 0.029 (0.000-0.056) ng/mL NT-Pro-B Natriuret Pep 51012 H (5-450) pg/mL Total Protein 6.4 (6.4-8.2) g/dL Albumin 3.1 L (3.4-5.0) g/dL Globulin 3.3 (2.3-3.5) g/dL Albumin/Globulin Ratio 0.9 L (1.2-2.2) TSH, Ultra Sensitive 1.103 (0.358-3.740) uIU/mL Urine Color (YELLOW) Urine Appearance (CLEAR) Urine pH (5.0-8.0) Ur Specific [place] (1.008-1.030) Urine Protein (NEGATIVE) mg/dL Urine Glucose (UA) (NEGATIVE) mg/dL Urine Ketones (NEGATIVE) mg/dL Urine Occult Blood (NEGATIVE) Urine Nitrite (NEGATIVE) Urine Bilirubin (NEGATIVE) Urine Urobilinogen (0.2-1.0) EU/dL Ur Leukocyte Esterase (NEGATIVE) Urine RBC (0-5) Urine WBC (0-5) Ur Epithelial Cells Amorphous Sediment Urine Bacteria Urine Mucus 10/06/19 Range/Units 11:44 WBC (4.5-11.0) K/uL RBC (3.30-5.50) M/uL Hgb (12.0-15.0) g/dL Hct (36.0-48.0) % MCV (80-98) fL MCH (27-31) pg MCHC (32-36) % Plt Count (150-400) K/uL Neut % (Auto) (36-66) % Lymph % (Auto) (24-44) % [place] % (Auto) (2-6) % Eos % (Auto) (2-4) % Baso % (Auto) (0-1) % PT (9.5-12.0) sec INR (0.80-1.20) Sodium (140-148) mmol/L Potassium (3.6-5.2) mmol/L Chloride (100-108) mmol/L Carbon Dioxide (21-32) mmol/L Anion Gap (5.0-14.0) mmol/L BUN (7-18) mg/dL Creatinine (0.6-1.0) mg/dL Est Cr Clr Drug Dosing mL/min Estimated GFR (MDRD) (>60) Glucose (74-106) mg/dL Calcium (8.5-10.1) mg/dL Total Bilirubin (0.2-1.0) mg/dL AST (15-37) U/L ALT (12-78) U/L Alkaline Phosphatase (46-116) U/L Troponin I (0.000-0.056) ng/mL NT-Pro-B Natriuret Pep (5-450) pg/mL Total Protein (6.4-8.2) g/dL Albumin (3.4-5.0) g/dL Globulin (2.3-3.5) g/dL Albumin/Globulin Ratio (1.2-2.2) TSH, Ultra Sensitive (0.358-3.740) uIU/mL Urine Color [place] A (YELLOW) Urine Appearance Cloudy A (CLEAR) Urine pH 7.0 (5.0-8.0) Ur Specific [place] 1.025 (1.008-1.030) Urine Protein 100 H (NEGATIVE) mg/dL Urine Glucose (UA) Negative (NEGATIVE) mg/dL Urine Ketones Negative (NEGATIVE) mg/dL Urine Occult Blood Large H (NEGATIVE) Urine Nitrite Negative (NEGATIVE) Urine Bilirubin Negative (NEGATIVE) Urine Urobilinogen 0.2 (0.2-1.0) EU/dL Ur Leukocyte Esterase Moderate H (NEGATIVE) Urine RBC >100 H (0-5) Urine WBC 50-75 H (0-5) Ur Epithelial Cells Moderate Amorphous Sediment Not seen Urine Bacteria Moderate Urine Mucus Not seen Meds: Medications Generic Name Dose Route Start Last Admin Trade Name Freq PRN Reason Stop Dose Admin Diltiazem HCl 100 mg/ Sodium 100 mls @ 5 mls/hr 10/06/19 11:15 10/06/19 11:35 Chloride IV 5 mg/hr TITRATE PAUL 5 mls/hr Administration Protocol 5 MG/HR Sodium Chloride 1,000 mls @ 300 mls/hr 10/06/19 11:15 10/06/19 11:25 Normal Saline IV 100 mls/hr ASDIRECTED PAUL Administration Sodium Chloride 10 ml 10/06/19 11:13 10/06/19 12:17 Saline Flush FLUSH 10 ml ASDIRECTED PRN Administration Keep Vein Open Discontinued Medications Generic Name Dose Route Start Last Admin Trade Name Freq PRN Reason Stop Dose Admin Diltiazem HCl 10 mg 10/06/19 11:13 10/06/19 11:25 Diltiazem IVPUSH 10/06/19 11:14 10 mg ONETIME ONE Administration - Radiology Interpretation Free Text/Narrative:: no acute processes. chronic cardiomegaly- no change from previous xray on record - Re-Assessments/Exams Free Text/Narrative Re-Assessment/Exam: 10/06/19 12:[address] Mayes for admission Departure - Departure Time of Disposition: 13:09 Disposition: Admitted As Inpatient 66 Condition: Fair Clinical Impression: Atrial fibrillation, Atrial fibrillation with rapid ventricular response, Renal insufficiency Urinary tract infection Qualifiers: Urinary tract infection type: acute cystitis Hematuria presence: with hematuria Qualified Code(s): N30.01 - Acute cystitis with hematuria Referrals: PCP,None [Primary Care Provider] - Forms: ED Department Discharge Sepsis Event Note (ED) - Evaluation Sepsis Screening Result: Possible Sepsis Risk - Focused Exam Vital Signs: Vital Signs Temp Pulse Resp BP Pulse Ox 10/06/19 12:26 102 H 20 144/83 H 96 10/06/19 12:11 94 26 H 148/83 H 95 10/06/19 11:57 99 29 H 143/76 H 97 10/06/19 11:42 130 H 36 H 172/97 H 97 10/06/19 11:25 133 H 30 H 151/80 H 95 10/06/19 11:15 142 H 30 H 151/80 H 94 L 10/06/19 11:09 96.8 F L 140 H 33 H 151/107 H 97 10/06/19 11:08 96.8 F L 140 H 33 H 151/107 H 97 10/06/19 11:06 134 H 30 H 174/99 H 96 - My Orders Last 24 Hours: My Active Orders 10/06/19 11:12 Chest 1V Frontal [CR] Stat 10/06/19 11:13 Cardiac Monitoring [RC] .As Directed Sodium Chloride 0.9% [Saline Flush] 10 ml FLUSH ASDIRECTED PRN Saline Lock Insert [OM.PC] Routine EKG 12 Lead [EK] Routine 10/06/19 11:14 EKG Documentation Completion [RC] ASDIRECTED 10/06/19 11:15 Diltiazem [Cardizem] 100 mg Sodium Chloride 0.9% [Normal Saline] 100 ml IV TITRATE Sodium Chloride 0.9% [Normal Saline] 1,000 ml IV ASDIRECTED 10/06/19 12:13 CULTURE URINE [RM] Stat - Assessment/Plan Last 24 Hours: My Active Orders 10/06/19 11:12 Chest 1V Frontal [CR] Stat 10/06/19 11:13 Cardiac Monitoring [RC] .As Directed Sodium Chloride 0.9% [Saline Flush] 10 ml FLUSH ASDIRECTED PRN Saline Lock Insert [OM.PC] Routine EKG 12 Lead [EK] Routine 10/06/19 11:14 EKG Documentation Completion [RC] ASDIRECTED 10/06/19 11:15 Diltiazem [Cardizem] 100 mg Sodium Chloride 0.9% [Normal Saline] 100 ml IV TITRATE Sodium Chloride 0.9% [Normal Saline] 1,000 ml IV ASDIRECTED 10/06/19 12:13 CULTURE URINE [RM] Stat
--- NOTE | 2019-10-06 12:55 | PCM.HP.2 ---
H&P History of Present Illness - General Date of Service: 10/06/19 Admit Problem/Dx: Admission Diagnosis/Problem Admission Diagnosis/Problem Atrial fibrillation Source of Information: Patient, Old Records, Provider, RN Notes Reviewed History Limitations: Reports: No Limitations - History of Present Illness Initial Comments - Free Text/Narative: Ms. Molina is an 84-year-old woman who was admitted through the emergency department with weakness, palpitations, shortness of breath, secondary to atrial fibrillation with rapid ventricular response and underlying urinary tract in fection. She was hospitalized at this facility approximately 6 weeks ago with similar findings. After discharge she did well until the last 3 days when she is noted progressive symptoms of shortness of breath with rapid heart rate. She came into the emergency department this morning for further evaluation. She is again noted to be in atrial fibrillation with rapid ventricular response. She has received IV bolus dose of diltiazem and started on a continuous infusion of diltiazem with good rate control. Urinalysis again shows evidence of underlying urinary tract infection. At baseline she has chronic kidney disease stage IV, current creatinine is 3 with a GFR of just above 10. Potassium is again noted to be mildly elevated at 5.5. If anything at this time she is somewhat dry and is showing no evidence of exacerbation of her diastolic congestive heart failure. - Related Data Allergies/Adverse Reactions: Allergies Allergy/AdvReac Type Severity Reaction Status Date / Time adhesive tape Allergy Other Verified 10/06/19 11:10 codeine Allergy Hives Verified 10/06/19 11:10 doxepin [Doxepin] Allergy Hives Verified 10/06/19 11:10 etodolac [From Lodine] Allergy Cannot Verified 10/06/19 11:10 Remember fosinopril sodium Allergy Hives Verified 10/06/19 11:10 [From Monopril] heparin Allergy Cannot Verified 10/06/19 11:10 Remember methylprednisolone Allergy Cannot Verified 10/06/19 11:10 [From Medrol] Remember pantoprazole [From Protonix] Allergy Cannot Verified 10/06/19 11:10 Remember Penicillins Allergy Hives Verified 10/06/19 11:10 procaine HCl [From Novocain] Allergy Hives Verified 10/06/19 11:10 Sulfa (Sulfonamide Allergy Hives Verified 10/06/19 11:10 Antibiotics) amitriptyline HCl AdvReac Hallucinati Verified 10/06/19 11:10 [From Elavil] ons amlodipine besylate AdvReac Blisters Verified 10/06/19 11:10 [From Norvasc] cephalexin [From Keflex] AdvReac Nausea Verified 10/06/19 11:10 nortriptyline AdvReac Hallucinati Verified 10/06/19 11:10 ons quinapril HCl [From Accupril] AdvReac Hallucinati Verified 10/06/19 11:10 ons Home Medications: Home Meds Simvastatin 20 mg PO BEDTIME 03/15/13 [History] traMADol [Ultram] 50 mg PO Q12H PRN 03/15/13 [History] Omeprazole 20 mg PO ACBREAKFAST 06/17/13 [History] Aspirin [Adult Low Dose Aspirin EC] 81 mg PO DAILY 08/17/13 [History] Nystatin/Triamcinolone Crm [Mycolog Crm] 1 applic TOP BID 08/17/13 [History] Nitroglycerin 0.4 mg SL ASDIRECTED PRN 11/29/15 [History] Albuterol/Ipratropium [DuoNeb 3.0-0.5 MG/3 ML] 3 ml INH Q4H PRN 11/19/17 [History] Potassium Chloride 2 cap PO BID 11/19/17 [History] Warfarin [Coumadin] 2.5 mg PO BEDTIME 11/19/17 [History] Bumetanide [Bumex] 1 mg PO DAILY 11/24/17 [History] Montelukast [Singulair] 10 mg PO BEDTIME 03/04/18 [History] Levothyroxine Sodium [Synthroid] 100 mcg PO DAILY 10/21/18 [History] Metoprolol Succinate 25 mg PO DAILY #30 tab.er.24h 10/23/18 [Rx] Cyanocobalamin (Vitamin B-12) [Vitamin B-12] 1,000 mcg SL DAILY 08/04/19 [History] Fluticasone/Salmeterol [Advair 500-50] 1 puff INH BID 08/04/19 [History] Hydroxychloroquine Sulfate [Plaquenil] 200 mg PO DAILY 08/04/19 [History] Magnesium Citrate 125 mg PO TID 08/04/19 [History] Menthol/Methyl Salicylate [Thera-Gesic Analgesic Cream] 1 applic TP ASDIRECTED PRN 08/04/19 [History] Multivitamin-Min/Iron/FA/Vit K [Multi-Day Plus Minerals Tablet] 1 each PO DAILY 08/04/19 [History] Tiotropium [Spiriva Handihaler] 2 puff INH DAILY 10/06/19 [History] Past Medical History HEENT History: Reports: Cataract, Hard of Hearing, Impaired Vision Cardiovascular History: Reports: Afib, High Cholesterol, Hypertension, Pacemaker Other Cardiovascular History: defibriblilation Respiratory History: Reports: COPD, Sleep Apnea, SOB, Other (See Below) Other Respiratory History: Cpap and home O2 2L prn Gastrointestinal History: Reports: Bowel Obstruction, GERD, Hiatal Hernia Genitourinary History: Reports: Urinary Incontinence, UTI, Recurrent [employer]ING [employer]ORD[employer] History: Reports: , Other (See Below) Other OB/BYN History: hemorrhaging Musculoskeletal History: Reports: Back Pain, Chronic, RA Other Musculoskeletal History: Torn rotator cuff Neurological History: Reports: CVA, Migraines Endocrine/Metabolic History: Reports: Hypothyroidism, Obesity/BMI 30+ Hematologic History: Reports: Anemia, Blood Transfusion(s) - Infectious Disease History Infectious Disease History: Reports: Chicken Pox, Measles, Mumps, Shingles - Past Surgical History Head Surgeries/Procedures: Reports: None HEENT Surgical History: Reports: Cataract Surgery Cardiovascular Surgical History: Reports: Coronary Artery Stent Respiratory Surgical History: Reports: None GI Surgical History: Reports: Appendectomy, Cholecystectomy, Hernia Repa ir/Other, Small Bowel Other GI Surgeries/Procedures: removal of mesh 2016 Female Surgical History: Reports: D&C, Hysterectomy, Salpingo-Oophorectomy Neurological Surgical History: Reports: C-Spine, Other (See Below) Musculoskeletal Surgical History: Reports: Knee Replacement, Other (See Below) Other Musculoskeletal Surgeries/Procedures:: L knee replaced Social & Family History - Family History Family Medical History: Noncontributory HEENT: Reports: Cataract Cardiac: Reports: Hypertension Respiratory: Reports: Asthma, COPD Other Respiratory Family Hisory: emphysema GI: Reports: Cholelithiasis, Colon Polyps OBGYN: Reports: Musculoskeletal: Reports: Arthritis Psychiatric: Reports: Anxiety, Depression Endocrine/Metabolic: Reports: Hypothyroidism Oncologic: Reports: Skin - Tobacco Use Smoking Status *Q: Never Smoker - Caffeine Use Caffeine Use: Reports: Tea H&P Review of Systems - Review of Systems: Review Of Systems: See Below General: Reports: Weakness, Fatigue, Decreased Appetite. Denies: Fever, Chills HEENT: Reports: No Symptoms Pulmonary: Reports: Shortness of Breath. Denies: Wheezing, Pleuritic Chest Pain, Cough, Sputum, Hemoptysis Cardiovascular: Reports: Palpitations, Dyspnea on Exertion. Denies: Chest Pain, Orthopnea, PND, Edema, Lightheadedness, Syncope Gastrointestinal: Reports: No Symptoms Genitourinary: Reports: No Symptoms Musculoskeletal: Reports: No Symptoms Skin: Reports: No Symptoms Psychiatric: Reports: No Symptoms Neurological: Reports: No Symptoms Hematologic/Lymphatic: Reports: No Symptoms Immunologic: Reports: No Symptoms Exam - Exam Exam: See Below - Vital Signs Vital Signs: Last Vital Signs Temp 96.8 F L 10/06/19 11:09 Pulse 102 H 10/06/19 12:26 Resp 20 10/06/19 12:26 BP 144/83 H 10/06/19 12:26 Pulse Ox 96 10/06/19 12:26 Weight: 163 lb - Exam Quality Assessment: Supplemental Oxygen, DVT Prophylaxis General: Alert, Oriented, Cooperative, Moderate Distress HEENT: Conjunctiva Clear, Hearing Intact, Normal Nasal Septum, Posterior Pharynx Clear, Pupils Equal. No: Mucosa Moist & [place] Neck: Supple, Trachea Midline, +2 Carotid Pulse wo Bruit Lungs: Clear to Auscultation, Normal Respiratory Effort Cardiovascular: Normal S1, Normal S2, Irregular Rhythm, Tachycardia. No: Systolic Murmur, Diastolic Murmur GI/Abdominal Exam: Soft, Non-Tender, No Organomegaly, No Distention Back Exam: Normal Inspection, Full Range of Motion, Vertebral Tenderness Extremities: Non-Tender, No Pedal Edema Skin: Warm, Dry, Intact Neurological: Cranial Nerves Intact, Strength Equal Bilateral, Normal Speech, Normal Tone, Sensation Intact. No: Focal Deficit Neuro Extensive - Mental Status: Alert, Oriented x3, Normal Mood/Affect, Normal Cognition, Memory Intact - Patient Data Lab Results Last 24 hrs: Laboratory Results - last 24 hr 10/06/19 10/06/19 10/06/19 Range/Units 11:12 11:12 11:20 WBC 10.6 (4.5-11.0) K/uL RBC 3.89 (3.30-5.50) M/uL Hgb 9.8 L (12.0-15.0) g/dL Hct 32.9 L (36.0-48.0) % MCV 85 (80-98) fL MCH 25 L (27-31) pg MCHC 30 L (32-36) % Plt Count 286 (150-400) K/uL Neut % (Auto) 71 H (36-66) % Lymph % (Auto) 18 L (24-44) % [place] % (Auto) 10 H (2-6) % Eos % (Auto) 0 L (2-4) % Baso % (Auto) 1 (0-1) % PT 29.6 H (9.5-12.0) sec INR 2.91 H (0.80-1.20) Sodium 142 (140-148) mmol/L Potassium 5.5 H (3.6-5.2) mmol/L Chloride 109 H (100-108) mmol/L Carbon Dioxide 22 (21-32) mmol/L Anion Gap 16.5 H (5.0-14.0) mmol/L BUN 23 H (7-18) mg/dL Creatinine 3.0 H D (0.6-1.0) mg/dL Est Cr Clr Drug Dosing 10.03 mL/min Estimated GFR (MDRD) 15 L (>60) Glucose 96 (74-106) mg/dL Calcium 9.0 (8.5-10.1) mg/dL Total Bilirubin 0.9 (0.2-1.0) mg/dL AST 73 H D (15-37) U/L ALT 45 (12-78) U/L Alkaline Phosphatase 81 (46-116) U/L Troponin I 0.029 (0.000-0.056) ng/mL NT-Pro-B Natriuret Pep 86104 H (5-450) pg/mL Total Protein 6.4 (6.4-8.2) g/dL Albumin 3.1 L (3.4-5.0) g/dL Globulin 3.3 (2.3-3.5) g/dL Albumin/Globulin Ratio 0.9 L (1.2-2.2) TSH, Ultra Sensitive 1.103 (0.358-3.740) uIU/mL Urine Color (YELLOW) Urine Appearance (CLEAR) Urine pH (5.0-8.0) Ur Specific [place] (1.008-1.030) Urine Protein (NEGATIVE) mg/dL Urine Glucose (UA) (NEGATIVE) mg/dL Urine Ketones (NEGATIVE) mg/dL Urine Occult Blood (NEGATIVE) Urine Nitrite (NEGATIVE) Urine Bilirubin (NEGATIVE) Urine Urobilinogen (0.2-1.0) EU/dL Ur Leukocyte Esterase (NEGATIVE) Urine RBC (0-5) Urine WBC (0-5) Ur Epithelial Cells Amorphous Sediment Urine Bacteria Urine Mucus 10/06/19 Range/Units 11:44 WBC (4.5-11.0) K/uL RBC (3.30-5.50) M/uL Hgb (12.0-15.0) g/dL Hct (36.0-48.0) % MCV (80-98) fL MCH (27-31) pg MCHC (32-36) % Plt Count (150-400) K/uL Neut % (Auto) (36-66) % Lymph % (Auto) (24-44) % [place] % (Auto) (2-6) % Eos % (Auto) (2-4) % Baso % (Auto) (0-1) % PT (9.5-12.0) sec INR (0.80-1.20) Sodium (140-148) mmol/L Potassium (3.6-5.2) mmol/L Chloride (100-108) mmol/L Carbon Dioxide (21-32) mmol/L Anion Gap (5.0-14.0) mmol/L BUN (7-18) mg/dL Creatinine (0.6-1.0) mg/dL Est Cr Clr Drug Dosing mL/min Estimated GFR (MDRD) (>60) Glucose (74-106) mg/dL Calcium (8.5-10.1) mg/dL Total Bilirubin (0.2-1.0) mg/dL AST (15-37) U/L ALT (12-78) U/L Alkaline Phosphatase (46-116) U/L Troponin I (0.000-0.056) ng/mL NT-Pro-B Natriuret Pep (5-450) pg/mL Total Protein (6.4-8.2) g/dL Albumin (3.4-5.0) g/dL Globulin (2.3-3.5) g/dL Albumin/Globulin Ratio (1.2-2.2) TSH, Ultra Sensitive (0.358-3.740) uIU/mL Urine Color [place] A (YELLOW) Urine Appearance Cloudy A (CLEAR) Urine pH 7.0 (5.0-8.0) Ur Specific [place] 1.025 (1.008-1.030) Urine Protein 100 H (NEGATIVE) mg/dL Urine Glucose (UA) Negative (NEGATIVE) mg/dL Urine Ketones Negative (NEGATIVE) mg/dL Urine Occult Blood Large H (NEGATIVE) Urine Nitrite Negative (NEGATIVE) Urine Bilirubin Negative (NEGATIVE) Urine Urobilinogen 0.2 (0.2-1.0) EU/dL Ur Leukocyte Esterase Moderate H (NEGATIVE) Urine RBC >100 H (0-5) Urine WBC 50-75 H (0-5) Ur Epithelial Cells Moderate Amorphous Sediment Not seen Urine Bacteria Moderate Urine Mucus Not seen Result Diagrams: 10/06/19 11:12 10/06/19 11:12 Sepsis Event Note - Evaluation Sepsis Screening Result: Possible Sepsis Risk - Focused Exam Vital Signs: Vital Signs Temp Pulse Resp BP Pulse Ox 10/06/19 12:26 102 H 20 144/83 H 96 10/06/19 12:11 94 26 H 148/83 H 95 10/06/19 11:57 99 29 H 143/76 H 97 10/06/19 11:42 130 H 36 H 172/97 H 97 10/06/19 11:25 133 H 30 H 151/80 H 95 10/06/19 11:15 142 H 30 H 151/80 H 94 L 10/06/19 11:09 96.8 F L 140 H 33 H 151/107 H 97 10/06/19 11:08 96.8 F L 140 H 33 H 151/107 H 97 10/06/19 11:06 134 H 30 H 174/99 H 96 Date Exam was Performed: 10/06/19 Time Exam was Performed: 13:14 *Q Meaningful Use (ADM) - VTE *Q VTE Pharmacological Contraindications *Q: High INR Value - VTE Risk Assess *Q Each Risk Factor Represents 1 Point: Obesity ( BMI > 25 kg/m2), Congestive heart failure (CHF), Abnormal Pulmonary Function (COPD) Total Score 1 Point Risk Factors: 3 Each Risk Factor Represents 2 Points: None Total Score 2 Point Risk Factors: 0 Each Risk Factor Represents 3 Points: Age 75 Years or Greater Total Score 3 Point Risk Factors: 3 Each Risk Factor Represents 5 Points: None Total Score 5 Point Risk Factors: 0 Venous Thromboembolism Risk Factor Score *Q: 6 Problem List Initiated/Reviewed/Updated: Yes Orders Last 24hrs: Active Orders 24 hr Category Date Time Status Patient Status Manage Transfer [TRANSFER] Routine ADT 10/06/19 12:47 Active Cardiac Monitoring [RC] .As Directed Care 10/06/19 11:13 Active EKG Documentation Completion [RC] ASDIRECTED Care 10/06/19 11:14 Active Chest 1V Frontal [CR] Stat Exams 10/06/19 11:12 Taken CULTURE URINE [RM] Stat Lab 10/06/19 12:13 Received Diltiazem [Cardizem] 100 mg Med 10/06/19 11:15 Active Sodium Chloride 0.9% [Normal Saline] 100 ml IV TITRATE Sodium Chloride 0.9% [Normal Saline] 1,000 ml Med 10/06/19 11:15 Active IV ASDIRECTED Sodium Chloride 0.9% [Saline Flush] Med 10/06/19 11:13 Active 10 ml FLUSH ASDIRECTED PRN Saline Lock Insert [OM.PC] Routine Oth 10/06/19 11:13 Ordered Resuscitation Status Routine Resus Stat 10/06/19 12:51 Ordered EKG 12 Lead [EK] Routine Ther 10/06/19 11:13 Ordered Medication Orders Diltiazem HCl 100 mg/ Sodium (Chloride) 100 mls @ 5 mls/hr IV TITRATE PAUL; Protocol Last Admin: 10/06/19 11:35 Dose: 5 mg/hr, 5 mls/hr Documented by: JARRED Sodium Chloride (Normal Saline) 1,000 mls @ 300 mls/hr IV ASDIRECTED PAUL Last Admin: 10/06/19 11:25 Dose: 100 mls/hr Documented by: JARRED Sodium Chloride (Saline Flush) 10 ml FLUSH ASDIRECTED PRN PRN Reason: Keep Vein Open Last Admin: 10/06/19 12:17 Dose: 10 ml Documented by: JOIE Assessment/Plan Comment:: ASSESSMENT AND PLAN Atrial fibrillation with rapid ventricular response-probably a result of the infection and congestive heart failure. Diltiazem drip has been started. She is chronically anticoagulated. -Continue diltiazem infusion -Continue beta-ellyn -Continue warfarin Acute cystitis without hematuria-urinary tract infection was probably the inciting event for the above issues. No significant symptoms and no evidence for sepsis. 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 Hopefully her function will improve with treating the infection and improving cardiac status as discussed above. -Labs in the morning Hyperkalemia-mild hyperkalemia noted on lab studies this morning. She is on a supplement. -Fluids -Hold potassium supplement -Repeat this evening Diastolic congestive heart failure-to be fairly well compensated and if anything somewhat dry. -Continue outpatient medications COPD, oxygen dependent-no evidence for infection or acute exacerbation. -Continue home medications and nebulizers Maintenance issues - - DVT prophylaxis -warfarin - GI prophylaxis -not indicated - Nutrition -low-sodium - [place] catheter -not indicated CODE STATUS -DNR/DNI Admission justification -this patient will be admitted for inpatient services and is medically appropriate meeting medical necessity for inpatient admission as outlined in my documentation. I reasonably expect the patient will require inpatient services that span a period time over 2 midnights. I reasonably expect this patient to be discharged or transferred within 96 hours [facility]. Disposition -I would anticipate discharge home after the hospital stay Primary care physician -Dr Sundeep Gleason - Mortality Measure Prognosis:: Good
[2019-10-06] MEDS ORDERED: Ondansetron 4 MG/2 ML SDV IV PRN (13:31)
[2019-10-06] MEDS ORDERED: Polyethylene Glycol 3350 Powder 17 GM Packet PO PRN (13:31)
[2019-10-06] MEDS ORDERED: Acetaminophen 325 MG Tab PO PRN (13:31)
[2019-10-06] MEDS: cefTRIAXone 1 GM in Sodium Chloride 0.9% 50 ML IV SCH (14:49)
[2019-10-06] MEDS: Albuterol/Ipratropium 3.0-0.5 MG/3 ML Neb Soln INH PRN ×2 (19:59→23:56)
[2019-10-06] MEDS: Fluticasone-Salmeterol 232-14 MCG Powder Inhalent INH SCH (20:01)
[2019-10-06] MEDS: Montelukast 10 MG Tab PO SCH (20:01)
[2019-10-06] MEDS: Magnesium Oxide 400 MG Tab PO SCH (20:02)
[2019-10-06] MEDS ORDERED: Warfarin 2.5 MG Tab PO SCH (21:00)
[2019-10-07] MEDS: Diltiazem 100 MG in Sodium Chloride 0.9% 100 ML IV SCH ×2 (00:03→09:16)
[2019-10-07] MEDS ORDERED: Furosemide 100 MG/10 ML SDV IVPUSH ONE (02:15)
[2019-10-07] MEDS: Glycopyrrolate 15.6 MCG Cap.W.Dev Kit of 6 IH SCH ×2 (07:24→20:15)
[2019-10-07] MEDS: Fluticasone-Salmeterol 232-14 MCG Powder Inhalent INH SCH ×2 (07:25→20:15)
[2019-10-07] MEDS ORDERED: Omeprazole 20 MG Cap.CR PO SCH (07:30)
[2019-10-07] MEDS: Levothyroxine 100 MCG Tab PO SCH (07:30)
[2019-10-07] MEDS: Hydroxychloroquine 200 MG Tab PO SCH (08:20)
[2019-10-07] MEDS: Aspirin 81 MG Tab.EC PO SCH (08:20)
[2019-10-07] MEDS: Magnesium Oxide 400 MG Tab PO SCH ×2 (08:20→20:12)
[2019-10-07] MEDS ORDERED: Metoprolol Succinate 25 MG Tab.ER PO SCH (09:00)
--- NOTE | 2019-10-07 09:30 | PCM.PN ---
- General Info Date of Service: 10/07/19 Subjective Update: Ms. Molina developed increased shortness of breath during the night, IV fluids were discontinued and she was given IV furosemide. She is somewhat better this morning but continues to experience shortness of breath, she does have known underlying diastolic congestive heart failure. On admission she did appear to be somewhat dry, but did not tolerate IV fluids. Heart rate remains under good control on current dose of IV diltiazem. Functional Status: Reports: Tolerating Diet, Urinating. Denies: Ambulating - Review of Systems General: Reports: Weakness. Denies: Fever, Chills Pulmonary: Reports: Shortness of Breath. Denies: Pleuritic Chest Pain, Cough, Sputum, Hemoptysis, Wheezing Cardiovascular: Reports: Palpitations, Dyspnea on Exertion. Denies: Chest Pain, Orthopnea, PND, Edema, Lightheadedness Gastrointestinal: Reports: No Symptoms - Patient Data Vitals - Most Recent: Last Vital Signs Temp 97.5 F 10/07/19 07:00 Pulse 92 10/07/19 08:20 Resp 26 H 10/07/19 09:00 BP 133/68 10/07/19 09:00 Pulse Ox 95 10/07/19 09:00 Weight - Most Recent: 159 lb 6.4 oz I&O - Last 24 Hours: Intake & Output 10/06/19 10/07/19 10/07/19 22:59 06:59 14:59 Intake Total 1207 2726 Output Total 100 800 Balance 1107 1926 Lab Results Last 24 Hours: Laboratory Results - last 24 hr 10/06/19 10/06/19 10/06/19 Range/Units 11:12 11:12 11:20 WBC 10.6 (4.5-11.0) K/uL RBC 3.89 (3.30-5.50) M/uL Hgb 9.8 L (12.0-15.0) g/dL Hct 32.9 L (36.0-48.0) % MCV 85 (80-98) fL MCH 25 L (27-31) pg MCHC 30 L (32-36) % Plt Count 286 (150-400) K/uL Neut % (Auto) 71 H (36-66) % Lymph % (Auto) 18 L (24-44) % [place] % (Auto) 10 H (2-6) % Eos % (Auto) 0 L (2-4) % Baso % (Auto) 1 (0-1) % PT 29.6 H (9.5-12.0) sec INR 2.91 H (0.80-1.20) Sodium 142 (140-148) mmol/L Potassium 5.5 H (3.6-5.2) mmol/L Chloride 109 H (100-108) mmol/L Carbon Dioxide 22 (21-32) mmol/L Anion Gap 16.5 H (5.0-14.0) mmol/L BUN 23 H (7-18) mg/dL Creatinine 3.0 H D (0.6-1.0) mg/dL Est Cr Clr Drug Dosing 10.03 mL/min Estimated GFR (MDRD) 15 L (>60) Glucose 96 (74-106) mg/dL Calcium 9.0 (8.5-10.1) mg/dL Magnesium (1.8-2.4) mg/dL Total Bilirubin 0.9 (0.2-1.0) mg/dL AST 73 H D (15-37) U/L ALT 45 (12-78) U/L Alkaline Phosphatase 81 (46-116) U/L Troponin I 0.029 (0.000-0.056) ng/mL NT-Pro-B Natriuret Pep 28889 H (5-450) pg/mL Total Protein 6.4 (6.4-8.2) g/dL Albumin 3.1 L (3.4-5.0) g/dL Globulin 3.3 (2.3-3.5) g/dL Albumin/Globulin Ratio 0.9 L (1.2-2.2) TSH, Ultra Sensitive 1.103 (0.358-3.740) uIU/mL Urine Color (YELLOW) Urine Appearance (CLEAR) Urine pH (5.0-8.0) Ur Specific [place] (1.008-1.030) Urine Protein (NEGATIVE) mg/dL Urine Glucose (UA) (NEGATIVE) mg/dL Urine Ketones (NEGATIVE) mg/dL Urine Occult Blood (NEGATIVE) Urine Nitrite (NEGATIVE) Urine Bilirubin (NEGATIVE) Urine Urobilinogen (0.2-1.0) EU/dL Ur Leukocyte Esterase (NEGATIVE) Urine RBC (0-5) Urine WBC (0-5) Ur Epithelial Cells Amorphous Sediment Urine Bacteria Urine Mucus 10/06/19 10/06/19 10/07/19 Range/Units 11:44 19:58 04:10 WBC 13.7 H (4.5-11.0) K/uL RBC 3.72 (3.30-5.50) M/uL Hgb 9.4 L (12.0-15.0) g/dL Hct 31.5 L (36.0-48.0) % MCV 85 (80-98) fL MCH 25 L (27-31) pg MCHC 30 L (32-36) % Plt Count 293 (150-400) K/uL Neut % (Auto) 76 H (36-66) % Lymph % (Auto) 13 L (24-44) % [place] % (Auto) 11 H (2-6) % Eos % (Auto) 0 L (2-4) % Baso % (Auto) 0 (0-1) % PT (9.5-12.0) sec INR (0.80-1.20) Sodium (140-148) mmol/L Potassium 5.0 (3.6-5.2) mmol/L Chloride (100-108) mmol/L Carbon Dioxide (21-32) mmol/L Anion Gap (5.0-14.0) mmol/L BUN (7-18) mg/dL Creatinine (0.6-1.0) mg/dL Est Cr Clr Drug Dosing mL/min Estimated GFR (MDRD) (>60) Glucose (74-106) mg/dL Calcium (8.5-10.1) mg/dL Magnesium (1.8-2.4) mg/dL Total Bilirubin (0.2-1.0) mg/dL AST (15-37) U/L ALT (12-78) U/L Alkaline Phosphatase (46-116) U/L Troponin I (0.000-0.056) ng/mL NT-Pro-B Natriuret Pep (5-450) pg/mL Total Protein (6.4-8.2) g/dL Albumin (3.4-5.0) g/dL Globulin (2.3-3.5) g/dL Albumin/Globulin Ratio (1.2-2.2) TSH, Ultra Sensitive (0.358-3.740) uIU/mL Urine Color [place] A (YELLOW) Urine Appearance Cloudy A (CLEAR) Urine pH 7.0 (5.0-8.0) Ur Specific [place] 1.025 (1.008-1.030) Urine Protein 100 H (NEGATIVE) mg/dL Urine Glucose (UA) Negative (NEGATIVE) mg/dL Urine Ketones Negative (NEGATIVE) mg/dL Urine Occult Blood Large H (NEGATIVE) Urine Nitrite Negative (NEGATIVE) Urine Bilirubin Negative (NEGATIVE) Urine Urobilinogen 0.2 (0.2-1.0) EU/dL Ur Leukocyte Esterase Moderate H (NEGATIVE) Urine RBC >100 H (0-5) Urine WBC 50-75 H (0-5) Ur Epithelial Cells Moderate Amorphous Sediment Not seen Urine Bacteria Moderate Urine Mucus Not seen 10/07/19 10/07/19 Range/Units 04:10 04:10 WBC (4.5-11.0) K/uL RBC (3.30-5.50) M/uL Hgb (12.0-15.0) g/dL Hct (36.0-48.0) % MCV (80-98) fL MCH (27-31) pg MCHC (32-36) % Plt Count (150-400) K/uL Neut % (Auto) (36-66) % Lymph % (Auto) (24-44) % [place] % (Auto) (2-6) % Eos % (Auto) (2-4) % Baso % (Auto) (0-1) % PT 35.9 H (9.5-12.0) sec INR 3.57 H (0.80-1.20) Sodium 140 (140-148) mmol/L Potassium 4.5 (3.6-5.2) mmol/L Chloride 107 (100-108) mmol/L Carbon Dioxide 22 (21-32) mmol/L Anion Gap 11.3 (5.0-14.0) mmol/L BUN 24 H (7-18) mg/dL Creatinine 2.7 H (0.6-1.0) mg/dL Est Cr Clr Drug Dosing 11.14 mL/min Estimated GFR (MDRD) 17 L (>60) Glucose 104 (74-106) mg/dL Calcium 8.3 L (8.5-10.1) mg/dL Magnesium 2.2 (1.8-2.4) mg/dL Total Bilirubin (0.2-1.0) mg/dL AST (15-37) U/L ALT (12-78) U/L Alkaline Phosphatase (46-116) U/L Troponin I (0.000-0.056) ng/mL NT-Pro-B Natriuret Pep (5-450) pg/mL Total Protein (6.4-8.2) g/dL Albumin (3.4-5.0) g/dL Globulin (2.3-3.5) g/dL Albumin/Globulin Ratio (1.2-2.2) TSH, Ultra Sensitive (0.358-3.740) uIU/mL Urine Color (YELLOW) Urine Appearance (CLEAR) Urine pH (5.0-8.0) Ur Specific [place] (1.008-1.030) Urine Protein (NEGATIVE) mg/dL Urine Glucose (UA) (NEGATIVE) mg/dL Urine Ketones (NEGATIVE) mg/dL Urine Occult Blood (NEGATIVE) Urine Nitrite (NEGATIVE) Urine Bilirubin (NEGATIVE) Urine Urobilinogen (0.2-1.0) EU/dL Ur Leukocyte Esterase (NEGATIVE) Urine RBC (0-5) Urine WBC (0-5) Ur Epithelial Cells Amorphous Sediment Urine Bacteria Urine Mucus Darshan Results Last 24 Hours: Microbiology 10/06/19 12:13 Urine Culture - Preliminary Urine, Clean Catch Med Orders - Current: Current Medications Acetaminophen (Tylenol) 650 mg PO Q4H PRN PRN Reason: Pain (Mild 1-3)/fever Albuterol/Ipratropium (Duoneb 3.0-0.5 Mg/3 Ml) 3 ml INH Q4H PRN PRN Reason: Shortness of Breath Last Admin: 10/06/19 23:56 Dose: 3 ml Documented by: Aspirin (Halfprin) 81 mg PO DAILY [facility] Last Admin: 10/07/19 08:20 Dose: 81 mg Documented by: Furosemide 20 mg/ Furosemide (40 mg) 60 mg IV ONETIME ONE Stop: 10/07/19 12:01 Glycopyrrolate (Seebri Neohaler) 15.6 mcg IH BIDRT [facility] Last Admin: 10/07/19 07:24 Dose: 1 cap Documented by: Hydroxychloroquine Sulfate (Plaquenil) 200 mg PO DAILY [facility] Last Admin: 10/07/19 08:20 Dose: 200 mg Documented by: Ceftriaxone Sodium 1 gm/ (Sodium Chloride) 50 mls @ 100 mls/hr IV Q24H [facility] Last Admin: 10/06/19 14:49 Dose: 100 mls/hr Documented by: Diltiazem HCl 100 mg/ Sodium (Chloride) 100 mls @ 5 mls/hr IV TITRATE [facility]; Protocol Last Admin: 10/07/19 09:16 Dose: 10 mg/hr, 10 mls/hr Documented by: Lactobacillus Rhamnosus (Culturelle) 1 cap PO BID [facility] Levothyroxine Sodium (Synthroid) 100 mcg PO DAILY@0730 [facility] Last Admin: 10/07/19 07:30 Dose: 100 mcg Documented by: Magnesium Oxide (Magnesium Oxide) 200 mg PO BID [facility] Last Admin: 10/07/19 08:20 Dose: 200 mg Documented by: Metoprolol Succinate (Toprol Xl) 25 mg PO DAILY [facility] Last Admin: 10/07/19 08:20 Dose: 25 mg Documented by: Montelukast Sodium (Singulair) 10 mg PO BEDTIME [facility] Last Admin: 10/06/19 20:01 Dose: 10 mg Documented by: Omeprazole (Omeprazole) 20 mg PO ACBREAKFAST [facility] Ondansetron HCl (Zofran) 4 mg IV Q4H PRN PRN Reason: Nausea/Vomiting Polyethylene Glycol (Miralax) 17 gm PO DAILY PRN PRN Reason: Constipation Potassium Chloride (Potassium Chloride) meq PO BID [facility] Fluticasone/Salmeterol (Fluticasone-Salmeterol 232-14 Mcg Powder Inha) 1 puff INH BIDRT [facility] Last Admin: 10/07/19 07:25 Dose: 1 puff Documented by: Sodium Chloride (Saline Flush) 10 ml FLUSH ASDIRECTED PRN PRN Reason: Keep Vein Open Tramadol HCl (Ultram) 50 mg PO Q6H PRN PRN Reason: Pain (severe 7-10) Discontinued Medications Diltiazem HCl (Diltiazem) 10 mg IVPUSH ONETIME ONE Stop: 10/06/19 11:14 Last Admin: 10/06/19 11:25 Dose: 10 mg Documented by: Furosemide (Lasix) 60 mg IVPUSH ONETIME ONE Stop: 07/09/20 02:16 Last Admin: 10/07/19 02:17 Dose: 60 mg Documented by: Diltiazem HCl 100 mg/ Sodium (Chloride) 100 mls @ 5 mls/hr IV TITRATE [facility]; Protocol Last Titration: 10/06/19 14:28 Dose: 10 mg/hr, 10 mls/hr Documented by: Sodium Chloride (Normal Saline) 1,000 mls @ 300 mls/hr IV ASDIRECTED [facility] Last Admin: 10/06/19 11:25 Dose: 100 mls/hr Documented by: Sodium Chloride (Normal Saline) 1,000 mls @ 125 mls/hr IV ASDIRECTED [facility] Last Admin: 10/06/19 17:33 Dose: 125 mls/hr Documented by: Sodium Chloride (Saline Flush) 10 ml FLUSH ASDIRECTED PRN PRN Reason: Keep Vein Open Last Admin: 10/06/19 12:17 Dose: 10 ml Documented by: Warfarin Sodium (Coumadin) 2.5 mg PO BEDTIME [facility] Last Admin: 10/06/19 20:01 Dose: 2.5 mg Documented by: - Exam Quality Assessment: Supplemental Oxygen, DVT Prophylaxis General: Alert, Oriented, Cooperative, Moderate Distress Lungs: Decreased Breath Sounds, Rales. No: Crackles, Rhonchi, Rub, Wheezing Cardiovascular: Regular Rate, No Murmurs, Irregular Rhythm GI/Abdominal Exam: Soft, Non-Tender, No Organomegaly, No Distention Extremities: Non-Tender, No Pedal Edema Sepsis Event Note - Evaluation Sepsis Screening Result: Severe Sepsis Risk - Focused Exam Vital Signs: Vital Signs Temp Pulse Pulse Resp BP BP Pulse Ox 10/07/19 09:00 26 H 133/68 95 10/07/19 08:20 92 152/90 H 10/07/19 08:00 35 H 152/90 H 97 10/07/19 07:00 97.5 F 83 27 H 140/71 96 10/07/19 06:00 93 25 H 141/84 H 96 10/07/19 05:00 103 H 28 H 147/88 H 95 10/07/19 04:00 97.8 F 111 H 30 H 129/82 93 L 10/07/19 03:00 99 28 H 136/79 99 10/07/19 02:00 113 H 14 138/80 95 10/07/19 01:00 93 24 H 136/76 95 10/07/19 00:00 97.1 F 91 27 H 139/79 98 10/06/19 23:00 92 23 H 125/76 96 10/06/19 22:42 86 23 H 134/95 H 97 Date Exam was Performed: 10/07/19 Time Exam was Performed: 09:26 - Problem List Review Problem List Initiated/Reviewed/Updated: Yes - My Orders Last 24 Hours: My Active Orders 10/06/19 Lunch 2 Gram Sodium Diet [DIET] 10/06/19 13:31 Acetaminophen [Tylenol] 650 mg PO Q4H PRN Albuterol/Ipratropium [DuoNeb 3.0-0.5 MG/3 ML] 3 ml INH Q4H PRN Diltiazem [Cardizem] 100 mg Sodium Chloride 0.9% [Normal Saline] 100 ml IV TITRATE Ondansetron [Zofran] 4 mg IV Q4H PRN Sodium Chloride 0.9% [Saline Flush] 10 ml FLUSH ASDIRECTED PRN polyethylene glycoL 3350 [MiraLAX] 17 gm PO DAILY PRN 10/06/19 13:31 Patient Status [ADT] Routine Ambulate [RC] QID Cardiac Monitoring [RC] Q6H Height and Weight [RC] DAILY Intake and Output [RC] QSHIFT Notify Provider Vital Signs [RC] ASDIRECTED Oxygen Therapy [RC] PRN Peripheral IV Care [RC] . DIRECTED RT Aerosol Therapy [RC] ASDIRECTED Up With Assistance [RC] ASDIRECTED Up to Chair [RC] QID Vital Signs [RC] Q1H Peripheral IV Insertion Adult [OM.PC] Routine VTE Pharmacological Contraindications [AST] Per Unit Routine 10/06/19 13:37 Resuscitation Status Routine 10/06/19 14:00 cefTRIAXone [Rocephin] 1 gm Sodium Chloride 0.9% [Normal Saline] 50 ml IV Q24H 10/06/19 21:00 Fluticasone/Salmeterol [Fluticasone-Salmeterol 232-14 MCG Powder Inha] 1 puff INH BIDRT Magnesium Oxide 200 mg PO BID Montelukast [Singulair] 10 mg PO BEDTIME 10/07/19 07:00 Glycopyrrolate [Seebri Neohaler] 15.6 mcg IH BIDRT 10/07/19 07:30 Levothyroxine [Synthroid] 100 mcg PO DAILY@0730 Omeprazole 20 mg PO ACBREAKFAST 10/07/19 09:00 Aspirin [Halfprin] 81 mg PO DAILY Hydroxychloroquine [Plaquenil] 200 mg PO DAILY Metoprolol Succinate [Toprol XL] 25 mg PO DAILY 10/07/19 09:21 traMADol [Ultram] 50 mg PO Q6H PRN 10/07/19 09:30 Lactobacillus Rhamnosus GG [Culturelle] 1 cap PO BID Potassium Chloride 2 cap PO BID 10/07/19 12:00 Furosemide [Lasix] 60 mg IV ONETIME ONE 10/08/19 05:00 BASIC METABOLIC PANEL,BMP [CHEM] Timed CBC WITH AUTO DIFF [HEME] Timed INR,PT,PROTHROMBIN TIME [COAG] Timed - Plan Plan:: ASSESSMENT AND PLAN Atrial fibrillation with rapid ventricular response-probably a result of the infection and congestive heart failure. Rate fairly well controlled with IV diltiazem -Continue diltiazem infusion -Continue beta-ellyn -Continue warfarin Acute cystitis without hematuria-urinary tract infection was probably the inciting event for the above issues. No significant symptoms and no evidence for sepsis. 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 Hopefully her function will improve with treating the infection and improving cardiac status as discussed above. -Labs in the morning Hyperkalemia-solved Diastolic congestive heart failure-exacerbation with increased shortness of breath -IV furosemide again later today -Continue outpatient medications COPD, oxygen dependent-no evidence for infection or acute exacerbation. -Continue home medications and nebulizers Maintenance issues - - DVT prophylaxis -warfarin - GI prophylaxis -not indicated - Nutrition -low-sodium - [place] catheter -not indicated CODE STATUS -DNR/DNI Admission justification -this patient will be admitted for inpatient services and is medically appropriate meeting medical necessity for inpatient admission as outlined in my documentation. I reasonably expect the patient will require inpatient services that span a period time over 2 midnights. I reasonably expect this patient to be discharged or transferred within 96 hours [facility] Disposition -I would anticipate discharge home after the hospital stay Primary care physician -Dr Sundeep Gleason
[2019-10-07] MEDS: traMADol 50 MG Tab PO PRN ×2 (09:32→15:38)
[2019-10-07] MEDS: Potassium Chloride 10 MEQ Cap.ER PO SCH ×2 (10:06→20:14)
[2019-10-07] MEDS: Lactobacillus Rhamnosus GG (Probiotic) Cap PO SCH ×2 (10:06→20:12)
--- NOTE | 2019-10-07 10:29 | CR ---
CHEST: Portable 10/06/2019 at 12:00 PM CLINICAL HISTORY:[facility] COMPARISON: 08/18/2019 Findings: Heart is enlarged. Pulmonary vascularity is normal. There is some blunting left costophrenic angle. This may be chronic. Patient has permanent cardiac pacer. There are atherosclerotic changes in the aorta. No infiltrates are seen IMPRESSION: Moderate cardiomegaly similar to prior study.
[2019-10-07] MEDS: OMEPRAZOLE 10 MG PO SCH (11:08)
[2019-10-07] MEDS ORDERED: Furosemide 40 MG/4 ML VIAL IVPUSH ONE (12:00)
[2019-10-07] MEDS: cefTRIAXone 1 GM in Sodium Chloride 0.9% 50 ML IV SCH (13:28)
[2019-10-07] MEDS: Montelukast 10 MG Tab PO SCH (20:14)
[2019-10-08] MEDS: Glycopyrrolate 15.6 MCG Cap.W.Dev Kit of 6 IH SCH ×2 (07:11→20:50)
[2019-10-08] MEDS: Fluticasone-Salmeterol 232-14 MCG Powder Inhalent INH SCH ×2 (07:11→20:50)
[2019-10-08] MEDS: Levothyroxine 100 MCG Tab PO SCH (07:39)
[2019-10-08] MEDS: OMEPRAZOLE 10 MG PO SCH (07:39)
[2019-10-08] MEDS: Aspirin 81 MG Tab.EC PO SCH (08:13)
[2019-10-08] MEDS: Potassium Chloride 10 MEQ Cap.ER PO SCH ×2 (08:13→20:49)
[2019-10-08] MEDS: Magnesium Oxide 400 MG Tab PO SCH ×2 (08:13→20:49)
[2019-10-08] MEDS: Lactobacillus Rhamnosus GG (Probiotic) Cap PO SCH ×2 (08:13→20:50)
[2019-10-08] MEDS ORDERED: Furosemide 100 MG/10 ML SDV IVPUSH ONE (08:15)
[2019-10-08] MEDS: Hydroxychloroquine 200 MG Tab PO SCH (08:39)
[2019-10-08] MEDS: Metoprolol Succinate 50 MG Tab.ER PO SCH (08:39)
--- NOTE | 2019-10-08 09:39 | PCM.PN ---
- General Info Date of Service: 10/08/19 Subjective Update: Ms. Molina has been stable since yesterday, she reports increase in strength and less shortness of breath. 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 Functional Status: Reports: Tolerating Diet, Ambulating, Urinating - Review of Systems General: Reports: Weakness, Fatigue. Denies: Fever, Chills Pulmonary: Reports: Shortness of Breath. Denies: Pleuritic Chest Pain, Cough, Sputum, Hemoptysis, Wheezing Cardiovascular: Reports: Dyspnea on Exertion. Denies: Chest Pain, Palpitations, Orthopnea, PND Gastrointestinal: Reports: No Symptoms - Patient Data Vitals - Most Recent: Last Vital Signs Temp 95.9 F L 10/08/19 07:00 Pulse 71 10/08/19 09:00 Resp 28 H 10/08/19 09:00 BP 117/60 10/08/19 09:00 Pulse Ox 91 L 10/08/19 09:00 Weight - Most Recent: 160 lb I&O - Last 24 Hours: Intake & Output 10/07/19 10/08/19 10/08/19 22:59 06:59 14:59 Intake Total 362 180 Output Total 1525 300 275 Balance -1163 -300 -95 Lab Results Last 24 Hours: Laboratory Results - last 24 hr 10/08/19 10/08/19 10/08/19 Range/Units 05:50 05:50 05:50 WBC 8.5 (4.5-11.0) K/uL RBC 3.56 (3.30-5.50) M/uL Hgb 9.1 L (12.0-15.0) g/dL Hct 30.1 L (36.0-48.0) % MCV 85 (80-98) fL MCH 26 L (27-31) pg MCHC 30 L (32-36) % Plt Count 260 (150-400) K/uL Neut % (Auto) 69 H (36-66) % Lymph % (Auto) 16 L (24-44) % [place] % (Auto) 12 H (2-6) % Eos % (Auto) 3 (2-4) % Baso % (Auto) 1 (0-1) % PT 35.2 H (9.5-12.0) sec INR 3.50 H (0.80-1.20) Sodium 141 (140-148) mmol/L Potassium 3.8 (3.6-5.2) mmol/L Chloride 106 (100-108) mmol/L Carbon Dioxide 28 (21-32) mmol/L Anion Gap 7.2 (5.0-14.0) mmol/L BUN 22 H (7-18) mg/dL Creatinine 2.4 H (0.6-1.0) mg/dL Est Cr Clr Drug Dosing 12.53 mL/min Estimated GFR (MDRD) 19 L (>60) Glucose 95 (74-106) mg/dL Calcium 8.0 L (8.5-10.1) mg/dL Darshan Results Last 24 Hours: Microbiology 10/06/19 12:13 Urine Culture - Final Urine, Clean Catch Enterococcus Faecalis Med Orders - Current: Current Medications Acetaminophen (Tylenol) 650 mg PO Q4H PRN PRN Reason: Pain (Mild 1-3)/fever Albuterol/Ipratropium (Duoneb 3.0-0.5 Mg/3 Ml) 3 ml INH Q4H PRN PRN Reason: Shortness of Breath Last Admin: 10/06/19 23:56 Dose: 3 ml Documented by: Aspirin (Halfprin) 81 mg PO DAILY [facility] Last Admin: 10/08/19 08:13 Dose: 81 mg Documented by: Glycopyrrolate (Seebri Neohaler) 15.6 mcg IH BIDRT [facility] Last Admin: 10/08/19 07:11 Dose: 1 cap Documented by: Hydroxychloroquine Sulfate (Plaquenil) 200 mg PO DAILY [facility] Last Admin: 10/08/19 08:39 Dose: 200 mg Documented by: Lactobacillus Rhamnosus (Culturelle) 1 cap PO BID [facility] Last Admin: 10/08/19 08:13 Dose: 1 cap Documented by: Levothyroxine Sodium (Synthroid) 100 mcg PO DAILY@0730 [facility] Last Admin: 10/08/19 07:39 Dose: 100 mcg Documented by: Linezolid (Zyvox) 600 mg PO Q12H [facility] Magnesium Oxide (Magnesium Oxide) 200 mg PO BID [facility] Last Admin: 10/08/19 08:13 Dose: 200 mg Documented by: Metoprolol Succinate (Toprol Xl) 50 mg PO DAILY [facility] Last Admin: 10/08/19 08:39 Dose: 50 mg Documented by: Montelukast Sodium (Singulair) 10 mg PO BEDTIME [facility] Last Admin: 10/07/19 20:14 Dose: 10 mg Documented by: Omeprazole (Omeprazole) 20 mg PO ACBREAKFAST [facility] Last Admin: 10/08/19 07:39 Dose: 20 mg Documented by: Ondansetron HCl (Zofran) 4 mg IV Q4H PRN PRN Reason: Nausea/Vomiting Polyethylene Glycol (Miralax) 17 gm PO DAILY PRN PRN Reason: Constipation Potassium Chloride (Potassium Chloride) 20 meq PO BID [facility] Last Admin: 10/08/19 08:13 Dose: 20 meq Documented by: Fluticasone/Salmeterol (Fluticasone-Salmeterol 232-14 Mcg Powder Inha) 1 puff INH BIDRT [facility] Last Admin: 10/08/19 07:11 Dose: 1 puff Documented by: Sodium Chloride (Saline Flush) 10 ml FLUSH ASDIRECTED PRN PRN Reason: Keep Vein Open Tramadol HCl (Ultram) 50 mg PO Q12H PRN PRN Reason: Pain (severe 7-10) Discontinued Medications Diltiazem HCl (Diltiazem) 10 mg IVPUSH ONETIME ONE Stop: 10/06/19 11:14 Last Admin: 10/06/19 11:25 Dose: 10 mg Documented by: Furosemide (Lasix) 60 mg IVPUSH ONETIME ONE Stop: 10/07/19 02:16 Last Admin: 10/07/19 02:17 Dose: 60 mg Documented by: Furosemide 20 mg/ Furosemide (40 mg) 60 mg IV ONETIME ONE Stop: 10/07/19 12:01 Last Admin: 10/07/19 11:08 Dose: 60 mg Documented by: Furosemide (Lasix) 60 mg IVPUSH NOW ONE Stop: 10/08/19 08:16 Last Admin: 10/08/19 08:22 Dose: 60 mg Documented by: Diltiazem HCl 100 mg/ Sodium (Chloride) 100 mls @ 5 mls/hr IV TITRATE [facility]; Protocol Last Titration: 10/06/19 14:28 Dose: 10 mg/hr, 10 mls/hr Documented by: Sodium Chloride (Normal Saline) 1,000 mls @ 300 mls/hr IV ASDIRECTED [facility] Last Admin: 10/06/19 11:25 Dose: 100 mls/hr Documented by: Sodium Chloride (Normal Saline) 1,000 mls @ 125 mls/hr IV ASDIRECTED [facility] Last Admin: 10/06/19 17:33 Dose: 125 mls/hr Documented by: Ceftriaxone Sodium 1 gm/ (Sodium Chloride) 50 mls @ 100 mls/hr IV Q24H [facility] Last Admin: 10/07/19 13:28 Dose: 100 mls/hr Documented by: Diltiazem HCl 100 mg/ Sodium (Chloride) 100 mls @ 5 mls/hr IV TITRATE [facility]; Protocol Stop: 10/07/19 18:45 Last Titration: 10/07/19 15:50 Dose: 5 mg/hr, 5 mls/hr Documented by: Diltiazem HCl 125 mg/ Dextrose (/Water) 125 mls @ 10 mls/hr IV TITRATE [facility]; Protocol Last Admin: 10/07/19 21:00 Dose: 10 mls/hr, 10 mls/hr Documented by: Metoprolol Succinate (Toprol Xl) 25 mg PO DAILY [facility] Last Admin: 10/07/19 08:20 Dose: 25 mg Documented by: Omeprazole (Omeprazole) 20 mg PO ACBREAKFAST [facility] Sodium Chloride (Saline Flush) 10 ml FLUSH ASDIRECTED PRN PRN Reason: Keep Vein Open Last Admin: 10/06/19 12:17 Dose: 10 ml Documented by: Tramadol HCl (Ultram) 50 mg PO Q6H PRN PRN Reason: Pain (severe 7-10) Last Admin: 10/07/19 15:38 Dose: 50 mg Documented by: Warfarin Sodium (Coumadin) 2.5 mg PO BEDTIME [facility] Last Admin: 10/06/19 20:01 Dose: 2.5 mg Documented by: - Exam General: Alert, Oriented, Cooperative, Mild Distress Lungs: Clear to Auscultation, Normal Respiratory Effort Cardiovascular: Regular Rate, No Murmurs, Irregular Rhythm GI/Abdominal Exam: Soft, Non-Tender, No Organomegaly, No Distention Extremities: Non-Tender, No Pedal Edema Sepsis Event Note - Evaluation Sepsis Screening Result: Severe Sepsis Risk - Focused Exam Vital Signs: Vital Signs Temp Pulse Pulse Resp BP BP Pulse Ox 10/08/19 09:00 71 28 H 117/60 91 L 10/08/19 08:39 85 122/65 10/08/19 08:00 71 18 122/65 96 10/08/19 07:00 95.9 F L 79 26 H 118/57 L 96 10/08/19 06:00 70 16 120/63 95 10/08/19 05:00 72 23 H 114/56 L 96 10/08/19 04:00 96.3 F L 72 19 116/61 94 L 10/08/19 03:00 70 16 104/51 L 95 10/08/19 02:00 71 17 112/60 97 10/08/19 01:00 75 20 113/67 96 10/08/19 00:00 96.4 F L 70 16 93/47 L 92 L 10/07/19 23:00 70 16 103/54 L 95 10/07/19 22:00 71 16 122/62 96 Date Exam was Performed: 10/08/19 Time Exam was Performed: 09:34 - Problem List Review Problem List Initiated/Reviewed/Updated: Yes - My Orders Last 24 Hours: My Active Orders 10/07/19 09:00 Aspirin [Halfprin] 81 mg PO DAILY Hydroxychloroquine [Plaquenil] 200 mg PO DAILY 10/07/19 09:30 Lactobacillus Rhamnosus GG [Culturelle] 1 cap PO BID Potassium Chloride 20 meq PO BID 10/07/19 11:00 Omeprazole 20 mg PO ACBREAKFAST 10/08/19 09:00 Metoprolol Succinate [Toprol XL] 50 mg PO DAILY 10/08/19 09:33 traMADol [Ultram] 50 mg PO Q12H PRN 10/08/19 09:45 Linezolid [Zyvox] 600 mg PO Q12H 10/09/19 05:00 BASIC METABOLIC PANEL,BMP [CHEM] Timed INR,PT,PROTHROMBIN TIME [COAG] Timed - Plan Plan:: ASSESSMENT AND PLAN Atrial fibrillation with rapid ventricular response-probably a result of the infection and congestive heart failure. Rate fairly well controlled with IV diltiazem -Discontinue diltiazem infusion -Continue beta-ellyn, increased dose of metoprolol to 50 mg daily -Continue warfarin Acute cystitis without hematuria-urinary tract infection was probably the inciting event for the above issues. No significant symptoms and no evidence for sepsis. Urine culture is growing enterococcus -Linezolid 600 mg p.o. twice daily Acute on chronic kidney disease-renal function remains elevated from baseline but improved from admission -Labs in the morning Hyperkalemia-resolved Diastolic congestive heart failure-exacerbation with increased shortness of breath -IV furosemide again today -Continue outpatient medications COPD, oxygen dependent-no evidence for infection or acute exacerbation. -Continue home medications and nebulizers Maintenance issues - - DVT prophylaxis -warfarin - GI prophylaxis -not indicated - Nutrition -low-sodium - De La Cruz catheter -not indicated CODE STATUS -DNR/DNI Admission justification -this patient will be admitted for inpatient services and is medically appropriate meeting medical necessity for inpatient admission as outlined in my documentation. I reasonably expect the patient will require inpatient services that span a period time over 2 midnights. I reasonably expect this patient to be discharged or transferred within 96 hours after admission to the Critical [facility]. Disposition -I would anticipate discharge home after the hospital stay Primary care physician -Dr Sundeep Gleason
[2019-10-08] MEDS: Linezolid 600 MG Tab PO SCH ×2 (10:33→21:01)
[2019-10-08] MEDS: traMADol 50 MG Tab PO PRN (15:09)
[2019-10-08] MEDS: Montelukast 10 MG Tab PO SCH (20:50)
[2019-10-09] MEDS: Fluticasone-Salmeterol 232-14 MCG Powder Inhalent INH SCH ×2 (07:00→21:00)
[2019-10-09] MEDS: Glycopyrrolate 15.6 MCG Cap.W.Dev Kit of 6 IH SCH ×2 (07:00→21:00)
[2019-10-09] MEDS: OMEPRAZOLE 10 MG PO SCH (07:15)
[2019-10-09] MEDS: Levothyroxine 100 MCG Tab PO SCH (07:15)
[2019-10-09] MEDS: Hydroxychloroquine 200 MG Tab PO SCH (09:06)
[2019-10-09] MEDS: Aspirin 81 MG Tab.EC PO SCH (09:06)
[2019-10-09] MEDS: Potassium Chloride 10 MEQ Cap.ER PO SCH ×2 (09:06→20:59)
[2019-10-09] MEDS: Linezolid 600 MG Tab PO SCH ×2 (09:06→21:00)
[2019-10-09] MEDS: Lactobacillus Rhamnosus GG (Probiotic) Cap PO SCH ×2 (09:06→20:58)
[2019-10-09] MEDS: Magnesium Oxide 400 MG Tab PO SCH ×2 (09:06→20:59)
[2019-10-09] MEDS: Metoprolol Succinate 50 MG Tab.ER PO SCH ×2 (09:07→10:45)
--- NOTE | 2019-10-09 10:38 | PCM.PN ---
- General Info Date of Service: 10/09/19 Subjective Update: Ms. Molina has been stable over the last 24 hours, rate control is good with conversion to increased dose of oral metoprolol. She denies shortness of breath at rest but does become short of breath with exertion and fatigues fairly easily. Functional Status: Reports: Tolerating Diet, Ambulating, Urinating - Review of Systems General: Reports: Weakness. Denies: Fever, Chills Pulmonary: Reports: Shortness of Breath. Denies: Pleuritic Chest Pain, Cough, Sputum, Hemoptysis, Wheezing Cardiovascular: Reports: Dyspnea on Exertion. Denies: Chest Pain, Palpitations, Orthopnea, PND, Edema, Lightheadedness Gastrointestinal: Reports: No Symptoms - Patient Data Vitals - Most Recent: Last Vital Signs Temp 96.9 F 10/09/19 07:00 Pulse 73 10/09/19 09:07 Resp 22 H 10/09/19 09:00 BP 116/56 L 10/09/19 09:07 Pulse Ox 97 10/09/19 09:00 Weight - Most Recent: 160 lb I&O - Last 24 Hours: Intake & Output 10/08/19 10/09/19 10/09/19 22:59 06:59 14:59 Intake Total 350 500 Output Total 1290 600 100 Balance -940 -100 -100 Lab Results Last 24 Hours: Laboratory Results - last 24 hr 10/09/19 10/09/19 Range/Units 05:47 05:47 PT 25.4 H (9.5-12.0) sec INR 2.48 H (0.80-1.20) Sodium 137 L (140-148) mmol/L Potassium 3.9 (3.6-5.2) mmol/L Chloride 103 (100-108) mmol/L Carbon Dioxide 29 (21-32) mmol/L Anion Gap 8.9 (5.0-14.0) mmol/L BUN 22 H (7-18) mg/dL Creatinine 2.5 H (0.6-1.0) mg/dL Est Cr Clr Drug Dosing 12.03 mL/min Estimated GFR (MDRD) 18 L (>60) Glucose 94 (74-106) mg/dL Calcium 8.0 L (8.5-10.1) mg/dL Darshan Results Last 24 Hours: Microbiology 10/06/19 12:13 Urine Culture - Final Urine, Clean Catch Enterococcus Faecalis Med Orders - Current: Current Medications Acetaminophen (Tylenol) 650 mg PO Q4H PRN PRN Reason: Pain (Mild 1-3)/fever Albuterol/Ipratropium (Duoneb 3.0-0.5 Mg/3 Ml) 3 ml INH Q4H PRN PRN Reason: Shortness of Breath Last Admin: 10/06/19 23:56 Dose: 3 ml Documented by: Aspirin (Halfprin) 81 mg PO DAILY [facility] Last Admin: 10/09/19 09:06 Dose: 81 mg Documented by: Glycopyrrolate (Seebri Neohaler) 15.6 mcg IH BIDRT [facility] Last Admin: 10/09/19 07:00 Dose: 1 cap Documented by: Hydroxychloroquine Sulfate (Plaquenil) 200 mg PO DAILY [facility] Last Admin: 10/09/19 09:06 Dose: 200 mg Documented by: Lactobacillus Rhamnosus (Culturelle) 1 cap PO BID [facility] Last Admin: 10/09/19 09:06 Dose: 1 cap Documented by: Levothyroxine Sodium (Synthroid) 100 mcg PO DAILY@0730 [facility] Last Admin: 10/09/19 07:15 Dose: 100 mcg Documented by: Linezolid (Zyvox) 600 mg PO Q12H [facility] Last Admin: 10/09/19 09:06 Dose: 600 mg Documented by: Magnesium Oxide (Magnesium Oxide) 200 mg PO BID [facility] Last Admin: 10/09/19 09:06 Dose: 200 mg Documented by: Metoprolol Succinate (Toprol Xl) 50 mg PO DAILY [facility] Last Admin: 10/09/19 09:07 Dose: 50 mg Documented by: Montelukast Sodium (Singulair) 10 mg PO BEDTIME [facility] Last Admin: 10/08/19 20:50 Dose: 10 mg Documented by: Omeprazole (Omeprazole) 20 mg PO ACBREAKFAST [facility] Last Admin: 10/09/19 07:15 Dose: 20 mg Documented by: Ondansetron HCl (Zofran) 4 mg IV Q4H PRN PRN Reason: Nausea/Vomiting Last Admin: 10/08/19 17:47 Dose: 4 mg Documented by: Polyethylene Glycol (Miralax) 17 gm PO DAILY PRN PRN Reason: Constipation Potassium Chloride (Potassium Chloride) 20 meq PO BID [facility] Last Admin: 10/09/19 09:06 Dose: 20 meq Documented by: Fluticasone/Salmeterol (Fluticasone-Salmeterol 232-14 Mcg Powder Inha) 1 puff INH BIDRT [facility] Last Admin: 10/09/19 07:00 Dose: 1 puff Documented by: Sodium Chloride (Saline Flush) 10 ml FLUSH ASDIRECTED PRN PRN Reason: Keep Vein Open Tramadol HCl (Ultram) 50 mg PO Q12H PRN PRN Reason: Pain (severe 7-10) Last Admin: 10/08/19 15:09 Dose: 50 mg Documented by: Warfarin Sodium (Coumadin) 2.5 mg PO DAILY@1300 [facility] Discontinued Medications Diltiazem HCl (Diltiazem) 10 mg IVPUSH ONETIME ONE Stop: 10/06/19 11:14 Last Admin: 10/06/19 11:25 Dose: 10 mg Documented by: Furosemide (Lasix) 60 mg IVPUSH ONETIME ONE Stop: 10/07/19 02:16 Last Admin: 10/07/19 02:17 Dose: 60 mg Documented by: Furosemide 20 mg/ Furosemide (40 mg) 60 mg IV ONETIME ONE Stop: 10/07/19 12:01 Last Admin: 10/07/19 11:08 Dose: 60 mg Documented by: Furosemide (Lasix) 60 mg IVPUSH NOW ONE Stop: 10/08/19 08:16 Last Admin: 10/08/19 08:22 Dose: 60 mg Documented by: Diltiazem HCl 100 mg/ Sodium (Chloride) 100 mls @ 5 mls/hr IV TITRATE [facility]; Protocol Last Titration: 10/06/19 14:28 Dose: 10 mg/hr, 10 mls/hr Documented by: Sodium Chloride (Normal Saline) 1,000 mls @ 300 mls/hr IV ASDIRECTED [facility] Last Admin: 10/06/19 11:25 Dose: 100 mls/hr Documented by: Sodium Chloride (Normal Saline) 1,000 mls @ 125 mls/hr IV ASDIRECTED [facility] Last Admin: 10/06/19 17:33 Dose: 125 mls/hr Documented by: Ceftriaxone Sodium 1 gm/ (Sodium Chloride) 50 mls @ 100 mls/hr IV Q24H [facility] Last Admin: 10/07/19 13:28 Dose: 100 mls/hr Documented by: Diltiazem HCl 100 mg/ Sodium (Chloride) 100 mls @ 5 mls/hr IV TITRATE [facility]; Protocol Stop: 10/07/19 18:45 Last Titration: 10/07/19 15:50 Dose: 5 mg/hr, 5 mls/hr Documented by: Diltiazem HCl 125 mg/ Dextrose (/Water) 125 mls @ 10 mls/hr IV TITRATE [facility]; Protocol Last Admin: 10/07/19 21:00 Dose: 10 mls/hr, 10 mls/hr Documented by: Metoprolol Succinate (Toprol Xl) 25 mg PO DAILY [facility] Last Admin: 10/07/19 08:20 Dose: 25 mg Documented by: Omeprazole (Omeprazole) 20 mg PO ACBREAKFAST [facility] Sodium Chloride (Saline Flush) 10 ml FLUSH ASDIRECTED PRN PRN Reason: Keep Vein Open Last Admin: 10/06/19 12:17 Dose: 10 ml Documented by: Tramadol HCl (Ultram) 50 mg PO Q6H PRN PRN Reason: Pain (severe 7-10) Last Admin: 10/07/19 15:38 Dose: 50 mg Documented by: Warfarin Sodium (Coumadin) 2.5 mg PO BEDTIME [facility] Last Admin: 10/06/19 20:01 Dose: 2.5 mg Documented by: - Exam Quality Assessment: Supplemental Oxygen, DVT Prophylaxis General: Alert, Oriented, Cooperative, Mild Distress Lungs: Clear to Auscultation, Normal Respiratory Effort Cardiovascular: Regular Rate, No Murmurs, Irregular Rhythm GI/Abdominal Exam: Soft, Non-Tender, No Organomegaly, No Distention Extremities: Non-Tender, No Pedal Edema Sepsis Event Note - Evaluation Sepsis Screening Result: No Definite Risk - Focused Exam Vital Signs: Vital Signs Temp Pulse Pulse Resp BP BP Pulse Ox 10/09/19 09:07 73 116/56 L 10/09/19 09:00 22 H 106/47 L 97 10/09/19 08:00 17 113/67 96 10/09/19 07:00 96.9 F 19 115/58 L 95 10/09/19 06:00 16 115/51 L 96 10/09/19 05:00 97.0 F 16 105/51 L 96 10/09/19 04:00 14 95/53 L 95 10/09/19 03:00 17 102/63 94 L 10/09/19 02:00 14 106/44 L 97 10/09/19 01:00 97.0 F 16 114/63 96 10/09/19 00:00 17 107/54 L 99 10/08/19 23:00 96.8 F L 83 19 117/57 L 97 Date Exam was Performed: 10/09/19 Time Exam was Performed: 10:31 - Problem List Review Problem List Initiated/Reviewed/Updated: Yes - My Orders Last 24 Hours: My Active Orders 10/08/19 09:33 traMADol [Ultram] 50 mg PO Q12H PRN 10/08/19 09:43 Consult to Physical Therapy [PT Evaluation and Treatment] [CONS] Routine 10/08/19 10:00 Linezolid [Zyvox] 600 mg PO Q12H 10/09/19 10:28 Patient Status [ADT] Routine 10/09/19 10:45 Bumetanide [Bumex] 2 mg PO DAILY 10/09/19 13:00 Warfarin [Coumadin] 2.5 mg PO DAILY@1300 10/10/19 05:00 BASIC METABOLIC PANEL,BMP [CHEM] Timed 10/10/19 05:11 INR,PT,PROTHROMBIN TIME [COAG] AM - Plan Plan:: ASSESSMENT AND PLAN Atrial fibrillation with rapid ventricular response-probably a result of the infection and congestive heart failure. Rate well controlled with oral metoprolol -Discontinue diltiazem infusion -Continue beta-ellyn, increased dose of metoprolol to 50 mg daily -Continue warfarin Acute cystitis without hematuria-urinary tract infection was probably the inciting event for the above issues. No significant symptoms and no evidence for sepsis. Urine culture is growing enterococcus -Linezolid 600 mg p.o. twice daily Acute on chronic kidney disease-renal function stable with diuresis -Labs in the morning Hyperkalemia-resolved Diastolic congestive heart failure-exacerbation with increased shortness of breath -Bumex 2 mg p.o. daily -Continue outpatient medications COPD, oxygen dependent-no evidence for infection or acute exacerbation. -Continue home medications and nebulizers Maintenance issues - - DVT prophylaxis -warfarin - GI prophylaxis -not indicated - Nutrition -low-sodium - De La Cruz catheter -not indicated CODE STATUS -DNR/DNI Admission justification -this patient will be admitted for inpatient services a nd is medically appropriate meeting medical necessity for inpatient admission as outlined in my documentation. I reasonably expect the patient will require inpatient services that span a period time over 2 midnights. I reasonably expect this patient to be discharged or transferred within 96 hours after admission to the Critical [facility]. Disposition -I would anticipate discharge home after the hospital stay Primary care physician -Dr Sundeep Gleason
[2019-10-09] MEDS: Bumetanide 1 MG Tab PO SCH (11:14)
[2019-10-09] MEDS: Warfarin 2.5 MG Tab PO SCH (12:35)
[2019-10-09] MEDS: Montelukast 10 MG Tab PO SCH (21:00)
[2019-10-10] MEDS: Fluticasone-Salmeterol 232-14 MCG Powder Inhalent INH SCH (07:26)
[2019-10-10] MEDS: OMEPRAZOLE 10 MG PO SCH (07:35)
[2019-10-10] MEDS: Levothyroxine 100 MCG Tab PO SCH (07:35)
[2019-10-10] MEDS: Glycopyrrolate 15.6 MCG Cap.W.Dev Kit of 6 IH SCH (07:36)
[2019-10-10] MEDS: Potassium Chloride 10 MEQ Cap.ER PO SCH (08:14)
[2019-10-10] MEDS: Lactobacillus Rhamnosus GG (Probiotic) Cap PO SCH (08:14)
[2019-10-10] MEDS: Metoprolol Succinate 50 MG Tab.ER PO SCH (08:15)
[2019-10-10] MEDS: Magnesium Oxide 400 MG Tab PO SCH (08:15)
[2019-10-10] MEDS: Hydroxychloroquine 200 MG Tab PO SCH (08:15)
[2019-10-10] MEDS: Bumetanide 1 MG Tab PO SCH (08:16)
[2019-10-10] MEDS: Linezolid 600 MG Tab PO SCH (09:33)
[2019-10-10] MEDS: Aspirin 81 MG Tab.EC PO SCH (09:33)
[2019-10-10 10:53] VITALS: BP 122/65; PULSE 89
--- NOTE | 2019-10-10 12:08 | PCM.DCSUM1 ---
Discharge Summary - Hospital Course Brief History: Ms. Molina is an 84-year-old woman who was admitted through the emergency department with weakness and shortness of breath secondary to a tract infection, acute on chronic exacerbation of diastolic congestive heart failure, and atrial fibrillation with rapid ventricular response. - Discharge Data Discharge Date: 10/10/19 Discharge Disposition: Home, Self-Care 01 Condition: Fair - Referral to Home Health Primary Care Physician: PCP None - Discharge Diagnosis/Problem(s) (1) CKD (chronic kidney disease) stage 4, GFR 15-29 ml/min SNOMED Code(s): 703135826 ICD Code: N18.4 - CHRONIC KIDNEY DISEASE, STAGE 4 (SEVERE) Status: Acute Current Visit: Yes (2) COPD (chronic obstructive pulmonary disease) SNOMED Code(s): 79115686 ICD Code: J44.9 - CHRONIC OBSTRUCTIVE PULMONARY DISEASE, UNSPECIFIED Status: Chronic Current Visit: No Qualifiers: Emphysema type: unspecified (3) CHF (congestive heart failure) SNOMED Code(s): 94627009 ICD Code: I50.9 - HEART FAILURE, UNSPECIFIED Status: Chronic Current Visit: No Qualifiers: Heart failure type: diastolic Heart failure chronicity: acute on chronic Qualified Code(s): I50.33 - Acute on chronic diastolic (congestive) heart failure (4) Atrial fibrillation with rapid ventricular response SNOMED Code(s): 844548829627077 ICD Code: I48.91 - UNSPECIFIED ATRIAL FIBRILLATION Status: Acute Current Visit: Yes (5) UTI (urinary tract infection) SNOMED Code(s): 91004401 ICD Code: N39.0 - URINARY TRACT INFECTION, SITE NOT SPECIFIED Status: Acute Current Visit: Yes Qualifiers: Urinary tract infection type: acute cystitis Hematuria presence: with hematuria Qualified Code(s): N30.01 - Acute cystitis with hematuria (6) CAD (coronary artery disease) SNOMED Code(s): 97889160 ICD Code: I25.10 - ATHSCL HEART DISEASE OF [place] CORONARY ARTERY W/O ANG PCTRS Status: Chronic Current Visit: No - Patient Summary/Data Consults: Consultations 10/08/19 09:43 Consult to Physical Therapy [PT Evaluation and Treatment] [CONS] Routine Please Evaluate and Treat. PT Reason for Consult: weakness This query below is only for informational purposes and is not editable. Admission Diagnosis/Problem: Atrial fibrillation Hospital Course: Ms. Molina is an 84-year-old woman who was admitted through the emergency department with weakness, palpitations, shortness of breath, secondary to atrial fibrillation with rapid ventricular response and underlying urinary tract infection. She was hospitalized at this facility approximately 6 weeks ago with similar findings. After discharge she did well until the last 3 days when she is noted progressive symptoms of shortness of breath with rapid heart rate. She came into the emergency department this morning for further evaluation. She is again noted to be in atrial fibrillation with rapid ventricular response. She has received IV bolus dose of diltiazem and started on a continuous infusion of diltiazem with good rate control. Urinalysis again shows evidence of underlying urinary tract infection. At baseline she has chronic kidney disease stage IV, current creatinine is 3 with a GFR of just above 10. Potassium is again noted to be mildly elevated at 5.5. On admission it also became apparent that she was experiencing an exacerbation of her diastolic heart failure. She received regular diuretic therapy throughout hospitalization and was less short of breath by the time of discharge. She was started on IV antibiotic therapy at the time of admission with ceftriaxone urine culture grew out enterococcus. This was resistant to fluoroquinolones and she was unable to take ampicillin because of history of previous allergy. She was transitioned to oral antibiotic therapy with linezolid twice daily and will be on an additional 3 days of the antibiotic after discharge. She will also receive probiotic therapy twice daily, this was initiated in the hospital and will be continued after discharge. She was transitioned to oral medication for management of her atrial fibrillation with rapid ventricular response dose of metoprolol was increased to 50 mg daily and this will also be continued after discharge. Prior to discharge she was transitioned to oral diuretic therapy her dose of Bumex was increased to 2 mg daily and this will also be continued after discharge. Renal function improved modestly during hospital stay back to baseline of chronic kidney disease stage IV. Activity will be as tolerated and she will be on a 2 g sodium diet follow- up appointment will be scheduled with her primary care provider within 1 week. - Patient Instructions Diet: Low Sodium Activity: As Tolerated Other/Special Instructions: Please schedule follow-up appointment with Dr. Gleason within 1 week. - Discharge Plan *PRESCRIPTION DRUG MONITORING PROGRAM REVIEWED*: Not Applicable *COPY OF PRESCRIPTION DRUG MONITORING REPORT IN PATIENT GERARDO: Not Applicable Prescriptions/Med Rec: Bumetanide [Bumex] 2 mg PO DAILY #30 tab Lactobacillus Rhamnosus GG [Culturelle] 1 cap PO BID #60 cap Metoprolol Succinate [Toprol XL 50mg] 50 mg PO DAILY #30 tab.er Linezolid [Zyvox] 600 mg PO Q12H #6 tablet Home Medications: Home Meds Simvastatin 20 mg PO BEDTIME 03/15/13 [History] traMADol [Ultram] 50 mg PO Q12H PRN 03/15/13 [History] Omeprazole 20 mg PO ACBREAKFAST 06/17/13 [History] Aspirin [Adult Low Dose Aspirin EC] 81 mg PO DAILY 08/17/13 [History] Nystatin/Triamcinolone Crm [Mycolog Crm] 1 applic TOP BID 08/17/13 [History] Nitroglycerin 0.4 mg SL ASDIRECTED PRN 11/29/15 [History] Albuterol/Ipratropium [DuoNeb 3.0-0.5 MG/3 ML] 3 ml INH Q4H PRN 11/19/17 [History] Potassium Chloride 20 meq PO BID 11/19/17 [History] Warfarin [Coumadin] 2.5 mg PO BEDTIME 11/19/17 [History] Montelukast [Singulair] 10 mg PO BEDTIME 03/04/18 [History] Levothyroxine Sodium [Synthroid] 100 mcg PO DAILY 10/21/18 [History] Cyanocobalamin (Vitamin B-12) [Vitamin B-12] 1,000 mcg SL DAILY 08/04/19 [History] Fluticasone/Salmeterol [Advair 500-50] 1 puff INH BID 08/04/19 [History] Hydroxychloroquine Sulfate [Plaquenil] 200 mg PO DAILY 08/04/19 [History] Magnesium Citrate 125 mg PO TID 08/04/19 [History] Menthol/Methyl Salicylate [Thera-Gesic Analgesic Cream] 1 applic TP ASDIRECTED PRN 08/04/19 [History] Multivitamin-Min/Iron/FA/Vit K [Multi-Day Plus Minerals Tablet] 1 each PO DAILY 08/04/19 [History] Tiotropium [Spiriva Handihaler] 2 puff INH DAILY 10/06/19 [History] Bumetanide [Bumex] 2 mg PO DAILY #30 tab 10/10/19 [Rx] Lactobacillus Rhamnosus GG [Culturelle] 1 cap PO BID #60 cap 10/10/19 [Rx] Linezolid [Zyvox] 600 mg PO Q12H #6 tablet 10/10/19 [Rx] Metoprolol Succinate [Toprol XL 50mg] 50 mg PO DAILY #30 tab.er 10/10/19 [Rx] Oxygen Therapy Mode: Nasal Cannula Oxygen Flow Rate (L/min): 2 Referrals: Sundeep Gleason MD [Physician] - 10/15/19 1:00 pm - Discharge Summary/Plan Comment DC Time >30 min.: No - Patient Data Vitals - Most Recent: Last Vital Signs Temp 98.1 F 10/10/19 10:52 Pulse 89 10/10/19 10:52 Resp 18 10/10/19 10:52 BP 122/65 10/10/19 10:52 Pulse Ox 98 10/10/19 10:52 Weight - Most Recent: 156 lb I&O - Last 24 hours: Intake & Output 10/09/19 10/10/19 10/10/19 22:59 06:59 14:59 Intake Total 720 Output Total 950 750 Balance -230 -750 Lab Results - Last 24 hrs: Laboratory Results - last 24 hr 10/10/19 10/10/19 Range/Units 04:49 04:49 PT 22.6 H (9.5-12.0) sec INR 2.19 H (0.80-1.20) Sodium 140 (140-148) mmol/L Potassium 4.2 (3.6-5.2) mmol/L Chloride 105 (100-108) mmol/L Carbon Dioxide 29 (21-32) mmol/L Anion Gap 6.2 (5.0-14.0) mmol/L BUN 25 H (7-18) mg/dL Creatinine 2.5 H (0.6-1.0) mg/dL Est Cr Clr Drug Dosing 12.03 mL/min Estimated GFR (MDRD) 18 L (>60) Glucose 93 (74-106) mg/dL Calcium 8.3 L (8.5-10.1) mg/dL Med Orders - Current: Current Medications Acetaminophen (Tylenol) 650 mg PO Q4H PRN PRN Reason: Pain (Mild 1-3)/fever Albuterol/Ipratropium (Duoneb 3.0-0.5 Mg/3 Ml) 3 ml INH Q4H PRN PRN Reason: Shortness of Breath Last Admin: 10/06/19 23:56 Dose: 3 ml Documented by: Aspirin (Halfprin) 81 mg PO DAILY [facility] Last Admin: 10/10/19 09:33 Dose: 81 mg Documented by: Bumetanide (Bumex) 2 mg PO DAILY [facility] Last Admin: 10/10/19 08:16 Dose: 2 mg Documented by: Glycopyrrolate (Seebri Neohaler) 15.6 mcg IH BIDRT [facility] Last Admin: 10/10/19 07:36 Dose: 1 cap Documented by: Hydroxychloroquine Sulfate (Plaquenil) 200 mg PO DAILY [facility] Last Admin: 10/10/19 08:15 Dose: 200 mg Documented by: Lactobacillus Rhamnosus (Culturelle) 1 cap PO BID [facility] Last Admin: 10/10/19 08:14 Dose: 1 cap Documented by: Levothyroxine Sodium (Synthroid) 100 mcg PO DAILY@0730 [facility] Last Admin: 10/10/19 07:35 Dose: 100 mcg Documented by: Linezolid (Zyvox) 600 mg PO Q12H [facility] Last Admin: 10/10/19 09:33 Dose: 600 mg Documented by: Magnesium Oxide (Magnesium Oxide) 200 mg PO BID [facility] Last Admin: 10/10/19 08:15 Dose: 200 mg Documented by: Metoprolol Succinate (Toprol Xl) 50 mg PO DAILY [facility] Last Admin: 10/10/19 08:15 Dose: 50 mg Documented by: Montelukast Sodium (Singulair) 10 mg PO BEDTIME [facility] Last Admin: 10/09/19 21:00 Dose: 10 mg Documented by: Omeprazole (Omeprazole) 20 mg PO ACBREAKFAST [facility] Last Admin: 10/10/19 07:35 Dose: 20 mg Documented by: Ondansetron HCl (Zofran) 4 mg IV Q4H PRN PRN Reason: Nausea/Vomiting Last Admin: 10/08/19 17:47 Dose: 4 mg Documented by: Polyethylene Glycol (Miralax) 17 gm PO DAILY PRN PRN Reason: Constipation Potassium Chloride (Potassium Chloride) 20 meq PO BID [facility] Last Admin: 10/10/19 08:14 Dose: 20 meq Documented by: Fluticasone/Salmeterol (Fluticasone-Salmeterol 232-14 Mcg Powder Inha) 1 puff INH BIDRT [facility] Last Admin: 10/10/19 07:26 Dose: 1 puff Documented by: Sodium Chloride (Saline Flush) 10 ml FLUSH ASDIRECTED PRN PRN Reason: Keep Vein Open Tramadol HCl (Ultram) 50 mg PO Q12H PRN PRN Reason: Pain (severe 7-10) Last Admin: 10/08/19 15:09 Dose: 50 mg Documented by: Warfarin Sodium (Coumadin) 2.5 mg PO DAILY@1300 [facility] Last Admin: 10/09/19 12:35 Dose: 2.5 mg Documented by: Discontinued Medications Diltiazem HCl (Diltiazem) 10 mg IVPUSH ONETIME ONE Stop: 10/06/19 11:14 Last Admin: 10/06/19 11:25 Dose: 10 mg Documented by: Furosemide (Lasix) 60 mg IVPUSH ONETIME ONE Stop: 10/07/19 02:16 Last Admin: 10/07/19 02:17 Dose: 60 mg Documented by: Furosemide 20 mg/ Furosemide (40 mg) 60 mg IV ONETIME ONE Stop: 10/07/19 12:01 Last Admin: 10/07/19 11:08 Dose: 60 mg Documented by: Furosemide (Lasix) 60 mg IVPUSH NOW ONE Stop: 10/08/19 08:16 Last Admin: 10/08/19 08:22 Dose: 60 mg Documented by: Diltiazem HCl 100 mg/ Sodium (Chloride) 100 mls @ 5 mls/hr IV TITRATE [facility]; Protocol Last Titration: 10/06/19 14:28 Dose: 10 mg/hr, 10 mls/hr Documented by: Sodium Chloride (Normal Saline) 1,000 mls @ 300 mls/hr IV ASDIRECTED [facility] Last Admin: 10/06/19 11:25 Dose: 100 mls/hr Documented by: Sodium Chloride (Normal Saline) 1,000 mls @ 125 mls/hr IV ASDIRECTED [facility] Last Admin: 10/06/19 17:33 Dose: 125 mls/hr Documented by: Ceftriaxone Sodium 1 gm/ (Sodium Chloride) 50 mls @ 100 mls/hr IV Q24H [facility] Last Admin: 10/07/19 13:28 Dose: 100 mls/hr Documented by: Diltiazem HCl 100 mg/ Sodium (Chloride) 100 mls @ 5 mls/hr IV TITRATE [facility]; Protocol Stop: 10/07/19 18:45 Last Titration: 10/07/19 15:50 Dose: 5 mg/hr, 5 mls/hr Documented by: Diltiazem HCl 125 mg/ Dextrose (/Water) 125 mls @ 10 mls/hr IV TITRATE [facility]UL; Protocol Last Admin: 10/07/19 21:00 Dose: 10 mls/hr, 10 mls/hr Documented by: Metoprolol Succinate (Toprol Xl) 25 mg PO DAILY [facility] Last Admin: 10/07/19 08:20 Dose: 25 mg Documented by: Omeprazole (Omeprazole) 20 mg PO ACBREAKFAST [facility] Sodium Chloride (Saline Flush) 10 ml FLUSH ASDIRECTED PRN PRN Reason: Keep Vein Open Last Admin: 10/06/19 12:17 Dose: 10 ml Documented by: Tramadol HCl (Ultram) 50 mg PO Q6H PRN PRN Reason: Pain (severe 7-10) Last Admin: 10/07/19 15:38 Dose: 50 mg Documented by: Warfarin Sodium (Coumadin) 2.5 mg PO BEDTIME [facility] Last Admin: 10/06/19 20:01 Dose: 2.5 mg Documented by: - Exam Quality Assessment: Reports: DVT Prophylaxis General: Reports: Alert, Oriented, Cooperative, No Acute Distress Lungs: Reports: Clear to Auscultation, Normal Respiratory Effort, Decreased Breath Sounds Cardiovascular: Reports: Regular Rate, No Murmurs, Irregular Rhythm GI/Abdominal Exam: Soft, Non-Tender, No Organomegaly, No Distention Extremities: Non-Tender, No Pedal Edema *Q Meaningful Use (DIS) - VTE *Q VTE Pharmacological Contraindications *Q: High INR Value
[2019-10-10] MEDS: traMADol 50 MG Tab PO PRN (12:23)
[2019-10-10] MEDS: Warfarin 2.5 MG Tab PO SCH (12:24)
== END 2019-10-10 12:59 | disposition home or self-care (01) | DRG 291 ==
LOC: JP.ED 11:06 → JP.ICU 12:47 → JP.MS 10-09 17:47
PROVIDERS: ADMIT Hospitalist; ATTEND Hospitalist
DX: R07.89 Other chest pain (principal); I13.0 Hypertensive heart and chronic kidney disease with heart failure and stage 1 through stage 4 chronic kidney disease, or unspecified chronic kidney disease; I50.33 Acute on chronic diastolic (congestive) heart failure; N28.9 Disorder of kidney and ureter, unspecified; H91.90 Unspecified hearing loss, unspecified ear; H54.7 Unspecified visual loss; N30.01 Acute cystitis with hematuria; N17.9 Acute kidney failure, unspecified; I10 Essential (primary) hypertension; N18.4 Chronic kidney disease, stage 4 (severe); J44.9 Chronic obstructive pulmonary disease, unspecified; Z66 Do not resuscitate; K44.9 Diaphragmatic hernia without obstruction or gangrene; R32 Unspecified urinary incontinence; M06.9 Rheumatoid arthritis, unspecified; I48.91 Unspecified atrial fibrillation; I25.10 Atherosclerotic heart disease of native coronary artery without angina pectoris; E03.9 Hypothyroidism, unspecified; Z86.73 Personal history of transient ischemic attack (TIA), and cerebral infarction without residual deficits; E66.9 Obesity, unspecified; B95.2 Enterococcus as the cause of diseases classified elsewhere; Z98.49 Cataract extraction status, unspecified eye; E78.00 Pure hypercholesterolemia, unspecified; G47.30 Sleep apnea, unspecified; Z96.652 Presence of left artificial knee joint; K21.9 Gastro-esophageal reflux disease without esophagitis; G89.29 Other chronic pain; M54.9 Dorsalgia, unspecified; F41.9 Anxiety disorder, unspecified; F32.9 Major depressive disorder, single episode, unspecified; Z91.048 Other nonmedicinal substance allergy status; E87.5 Hyperkalemia; Z91.09 Other allergy status, other than to drugs and biological substances; Z88.5 Allergy status to narcotic agent; Z88.0 Allergy status to penicillin; Z88.2 Allergy status to sulfonamides; Z88.1 Allergy status to other antibiotic agents; Z88.8 Allergy status to other drugs, medicaments and biological substances; Z79.82 Long term (current) use of aspirin; Z79.01 Long term (current) use of anticoagulants; Z79.890 Hormone replacement therapy; Z95.0 Presence of cardiac pacemaker; Z90.710 Acquired absence of both cervix and uterus; Z95.5 Presence of coronary angioplasty implant and graft; Z90.49 Acquired absence of other specified parts of digestive tract; Z79.899 Other long term (current) drug therapy
CPT/HCPCS: 36415; 71045 ×2; 80053; 81001; 83880; 84443; 84484; 85025; 85610; 87086; 87088; 87186; 93005; 96365; 99285; J3490 ×2; J7030; J7050; 80048; 83735; 84132; 93010; 94640; 97116-GP; 97162-GP; 97530-GP; A9270-GY; J0696; J1940; J2405; J7060; J7620-GY